=== PATIENT | female | born 1955 | race Caucasian/White ===

== ENCOUNTER 2024-03-05 13:05 | Inpatient (IN) | payer MEDICARE, SELFPAY ==
--- NOTE | ~2024-03-05 | XR_ITS ---
EXAMINATION: XR chest 1V portable Exam Date/Time: 03/05/2024 17:50 CDT HISTORY: Altered mental status Comparison: None. RESULT: Lines, tubes, and devices: None. Lungs and pleura: Mild diffuse reticular opacities. Cardiomediastinal silhouette: Unremarkable. Other: No acute osseous or upper abdominal finding. IMPRESSION: Pulmonary opacities may represent mild interstitial edema or chronic interstitial change. Reviewed, dictated and finalized at location K. IMPRESSION: Pulmonary opacities may represent mild interstitial edema or chronic interstiti al change.
--- NOTE | ~2024-03-05 | CT_ITS ---
EXAMINATION: CT brain wo con DATE: 03/05/2024 18:20 INDICATION: Altered mental status . TECHNIQUE: Computed tomography (CT) of the head was performed without intravenous contrast. The mA wa s adjusted according to patient size. Iterative reconstruction technique was employed. The dose-lengt h product was 1210.67 mGy-cm. COMPARISON: None. FINDINGS: Moderate motion artifact which persisted in repeated imaging attempts. No acute intracranial hemorrhage or extra-axial fluid collection. No hydrocephalus, mass, or herniation. No acute ischemic infarct. Unremarkable dural venous sinus attenuation. No acute osseous abnormality. The aerated spaces are clear. Moderate atrophy and severe chronic white matter change. Atherosclerotic intracranial calcification. Bilateral lens replacements. IMPRESSION: Moderately motion limited examination due to motion artifact. No definite acute intracranial process. Reviewed, dictated and finalized at location K.
[2024-03-05 13:17] VITALS: BP 124/106; PULSE 70; RESP 16; O2SAT 96
--- NOTE | 2024-03-05 16:09 | PC.NURSE ---
1317 pts at bedside stating pt is going to need restrained to do anything due to pt being combative.
[2024-03-05] MEDS: SODIUM CHLORIDE 0.9% IV 1,000 ML 999 ML IV CONT (17:45)
[2024-03-05 17:59] LABS: Basophils Absolute Auto 0.1 K/mm3 (0.0-0.1); Basophils Percent Auto 0.5 % (0.2-1.2); Eosinophils Absolute Auto 0.2 K/mm3 (0-0.3); Eosinophils Percent Auto 1.5 % (0-4.4); Hematocrit 33.1 % (37.0-47.0); Hemoglobin 11.8 g/dL (12.0-15.0); Immature Granulocyte Absolute 0.04 K/mm3 (0.00-0.031); Immature Granulocyte Percent A 0.4 % (0-0.5); Lymphocytes Absolute Auto 2.14 K/mm3 (0.9-3.2); Lymphocytes Percent Auto 20.1 % (18.3-44.2); Mean Corpuscular HGB Conc 35.6 g/dl (32-36); Mean Corpuscular Hemoglobin 31.9 pg (26-34); Mean Corpuscular Volume 89.5 fl (80-100); Mean Platelet Volume 10.3 fl (7.4-10.4); Monocytes Absolute Auto 0.7 K/mm3 (0.1-0.6); Monocytes Percent Auto 6.4 % (2.6-8.5); Neutrophils Absolute Auto 7.6 K/mm3 (1.3-6.7); Neutrophils Percent Auto 71.1 % (45.5-73.1); Platelet Count Result 254 k/mm3 (150-375); Red Cell Distribution Width 13.2 % (11.5-14.5); White Blood Count 10.7 K/mm3 (4.5-10.0)
[2024-03-05 18:10] LABS: Alanine Aminotransferase 24 U/L (6-35); Albumin Level 3.7 g/dL (3.5-5.1); Alkaline Phosphatase 142 U/L (38-126); Anion Gap 11 mmol/L (4-12); Aspartate Amino Transferase 24 U/L (14-36); Bilirubin,Total 0.4 mg/dL (0.2-1.3); Blood Urea Nitrogen 12 mg/dL (7-17); Calcium 9.2 mg/dL (8.4-10.2); Carbon Dioxide 25 mmol/L (22-30); Chloride 102 mmol/L (98-107); Estimated Glomerular Filt Rate > 60; Glucose 159 mg/dL (65-110); Lactic Acid Reflex 1.9 mmol/L (0.7-2.0); Magnesium 1.6 mg/dL (1.6-2.3); Potassium 3.8 mmol/L (3.4-5.0); Sodium 138 mmol/L (137-145)
[2024-03-05 18:21] LABS: Add Urine Microscopic? YES; Appearance Urine Cloudy (Clear); Bacteria Urine 4+ /hpf; Bilirubin Urine Negative (Negative); Blood Urine Negative (Negative); Budding Yeast Urine Present /hpf; Color Urine Yellow (Yellow); Glucose Urine UA Negative (Negative); Ketones Urine Trace mg/dL (Negative); Leukocyte Esterase Ur 2+ LEU/UL (Negative); Need Manual Microscopic Reviewed; Nitrate Urine Positive (Negative); Non Pathogenic Casts 0-2; Protein Urine Trace mg/dL (Negative); RBC Urine 0-2 /hpf (0-2); Specific Grav Ur 1.017 (1.001-1.035); Squamous Epithelial Cell Urine None Seen /hpf (Few); WBC Urine >100 /hpf (0-3); pH Urine 7.5 (5.0-9.0)
[2024-03-05 18:21] LABS: Troponin I < 0.012 ng/mL (0.000-0.034)
--- NOTE | 2024-03-05 19:04 | ED.GENADULT ---
HPI - General Adult General Chief complaint: Altered Mental Status Stated complaint: confusion Time Seen by Provider: 03/05/24 16:04 History of Present Illness HPI narrative: Patient is a 68-year-old female presents emergency department with chief complaint of altered mental status. Patient is resident of [facility] and has become combative with the staff and has had dark malodorous urine the staff was unable to get a urine from the patient as she was combative at the facility and was striking at staff. Related Data Allergies Allergy/AdvReac Type Severity Reaction Status Date / Time No Known Allergies Allergy Unknown Unverified 12/04/08 13:50 Penicillins Allergy Unknown Unverified 12/04/08 13:53 Review of Systems Review of Systems: A 10 system review of systems was completed on the patient and is negative except for what is stated in the HPI. Nursing and ancillary documentation was reviewed. Exam Narrative: GENERAL: Well-appearing, well-nourished, and in no acute distress. HEAD: Normocephalic, atraumatic. EYES: PERRLA and EOMI. ENT: Nares clear, no rhinorrhea or epistaxis. Mucous membranes moist. NECK: Supple. CHEST: Clear to auscultation. No respiratory distress. HEART: Regular rate and rhythm. No murmur heard. Normal peripheral pulses. ABDOMEN: Soft, nontender, nondistended, normal active bowel sounds. EXTREMITIES: Normal range of motion. No edema. SKIN: Warm, dry, no rash. NEURO: No focal deficits. Alert and oriented confused non cooperative. PSYCH: Normal mood and affect. Course Vital Signs Vital signs: Vital Signs Oxygen Delivery Room Air 03/05/24 13:15 Pulse Rate 70 03/05/24 13:17 Respiratory Rate 16 03/05/24 13:17 Blood Pressure 124/106 H 03/05/24 13:17 Pulse Oximetry 96 03/05/24 13:17 Oxygen Delivery Room Air 03/05/24 13:15 Medical Decision Making [facility] Narrative Medical decision making narrative: Differential diagnosis includes UTI, CVA, ACS, dehydration Laboratory studies were obtained on the patient which showed a normal CBC with white count 10.7 hemoglobin is 11.8 electrolytes showed no acute abnormality urinalysis showed greater than 100 white blood cells 2+ leukocyte esterase CT head showed no acute abnormalities chest x-ray showed no focal infiltrate The case was discussed with the hospitalist the patient be admitted. Per request of the hospitalist service patient was started on meropenem Vital Signs Vital Signs: Vital Signs Oxygen Delivery Room Air 03/05/24 13:15 Pulse Rate 70 03/05/24 13:17 Respiratory Rate 16 03/05/24 13:17 Blood Pressure 124/106 H 03/05/24 13:17 Pulse Oximetry 96 03/05/24 13:17 Oxygen Delivery Room Air 03/05/24 13:15 Lab Data 03/05/24 17:49 03/05/24 17:49 Labs: Lab Results 03/05/24 03/05/24 Range/Units 17:48 17:49 WBC 10.7 H (4.5-10.0) K/mm3 RBC 3.70 L (4.2-5.4) M/mm3 Hgb 11.8 L (12.0-15.0) g/dL Hct 33.1 L (37.0-47.0) % MCV 89.5 (80-100) fl MCH 31.9 (26-34) pg MCHC 35.6 (32-36) g/dl RDW 13.2 (11.5-14.5) % Plt Count 254 (150-375) k/mm3 MPV 10.3 (7.4-10.4) fl Immature Gran % (Auto) 0.4 (0-0.5) % Neut % (Auto) 71.1 (45.5-73.1) % Lymph % (Auto) 20.1 (18.3-44.2) % [place] % (Auto) 6.4 (2.6-8.5) % Eos % (Auto) 1.5 (0-4.4) % Baso % (Auto) 0.5 (0.2-1.2) % Lymph # (Auto) 2.14 (0.9-3.2) K/mm3 [place] # (Auto) 0.7 H (0.1-0.6) K/mm3 Eos # (Auto) 0.2 (0-0.3) K/mm3 Baso # (Auto) 0.1 (0.0-0.1) K/mm3 Abs Immat Gran (auto) 0.04 H (0.00-0.031) K/mm3 Absolute Neuts (auto) 7.6 H (1.3-6.7) K/mm3 Absolute Nucleated RBC 0.000 (0.0-0.012) K/mm3 Nucleated RBC % 0.0 (0.0-0.2) % Sodium 138 (137-145) mmol/L Potassium 3.8 (3.4-5.0) mmol/L Chloride 102 (98-107) mmol/L Carbon Dioxide 25 (22-30) mmol/L Anion Gap 11 (4-12) mmol/L BUN 12 (7-17) mg/dL Creatinine 0
[2024-03-05 19:21] LABS: Influenza A QL RT-PCR Negative (Negative); Influenza B QL RT-PCR Negative (Negative); RSV RNA, RT-PCR Negative (Negative); SARS-CoV-2 RNA PCR Positive (Negative)
[2024-03-05 19:28] VITALS: BP 154/92; PULSE 64; RESP 16; O2SAT 94
--- NOTE | 2024-03-05 19:30 | PM.IMHP ---
H&P: HPI History of Present Illness Date/Time: 03/05/24 19:30 Chief Complaint: ams Narrative: THIS IS A 68-YEAR-OLD FEMALE WITH PAST MEDICAL HISTORY SIGNIFICANT FOR DEMENTIA, PATIENT RESIDES AT LOCAL [facility] FACILITY WAS BROUGHT TO THE EMERGENCY ROOM DUE TO ALTERED MENTAL STATUS WITH AGITATION, CONFUSION. Preliminary workup significant for urinalysis with numerous WBCs present. EXAMINATION: XR chest 1V portable Exam Date/Time: 03/05/2024 17:50 CDT HISTORY: Altered mental status Comparison: None. RESULT: Lines, tubes, and devices: None. Lungs and pleura: Mild diffuse reticular opacities. Cardiomediastinal silhouette: Unremarkable. Other: No acute osseous or upper abdominal finding. IMPRESSION: Pulmonary opacities may represent mild interstitial edema or chronic interstitial change. EXAMINATION: CT brain wo con DATE: 03/05/2024 18:20 INDICATION: Altered mental status . TECHNIQUE: Computed tomography (CT) of the head was performed without intravenous contrast. The mA was adjusted according to patient size. Iterative reconstruction technique was employed. The dose-length product was 1210.67 mGy-cm. COMPARISON: None. FINDINGS: Moderate motion artifact which persisted in repeated imaging attempts. No acute intracranial hemorrhage or extra-axial fluid collection. No hydrocephalus, mass, or herniation. No acute ischemic infarct. Unremarkable dural venous sinus attenuation. No acute osseous abnormality. The aerated spaces are clear. Moderate atrophy and severe chronic white matter change. Atherosclerotic intracranial calcification. Bilateral lens replacements. IMPRESSION: Moderately motion limited examination due to motion artifact. No definite acute intracranial process. Review of Systems Review of Systems: ROS unobtainable: Yes unobtainable due to mental status ( obtundation) [facility] Past Medical History Medical History (Updated 03/07/24 @ 15:46 by Michael Blanco MD) Dementia Diabetes mellitus HTN (hypertension), benign Social History Social History Smoking status: Unknown if ever smoked Alcohol intake: never Substance use: never Substance use type: does not use Spiritual care concerns: No Meds Home Medications and Allergies Home Medications Medication Instructions Recorded Confirmed Type aspirin 81 mg chewable tablet 81 mg PO DAILY 03/05/24 03/05/24 History atorvastatin 80 mg tablet 80 mg PO QPM 03/05/24 03/05/24 History benazepril 40 mg tablet 40 mg PO DAILY 03/05/24 03/05/24 History donepezil 10 mg tablet 10 mg PO HS 03/05/24 03/05/24 History escitalopram oxalate 20 mg tablet 20 mg PO DAILY 03/05/24 03/05/24 History memantine 5 mg tablet 5 mg PO BID 03/05/24 03/05/24 History metformin 500 mg tablet,extended 1,000 mg PO DAILY 03/05/24 03/05/24 History release 24 hr quetiapine 25 mg tablet 25 mg PO DAILY 03/05/24 03/05/24 History sulfamethoxazole 800 1 tab PO Q12HR #7 tabs 03/07/24 Rx mg-trimethoprim 160 mg tablet Allergies Allergy/AdvReac Type Severity Reaction Status Date / Time Penicillins Allergy Unknown Anaphylaxis Verified 03/05/24 20:33 Vital Signs Vital Signs - 24 hr 03/05/24 13:17 03/05/24 13:15 03/05/24 19:28 Pulse Rate 70 64 Respiratory Rate 16 16 Blood Pressure 124/106 H 154/92 H Pulse Oximetry 96 94 Oxygen Delivery Room Air Exam Narrative: Patient is restless soft restraints in place Const: General: comfortable, no acute distress, well developed, alert, awake and average body habitus Nutritional Appearance: average body habitus Orientation/consciousness: oriented to person Other: speaking nonsensical HENMT: Head: normal to inspection, normocephalic and atraumatic Ears: hearing grossly normal bilaterally Face/Nose/Sinus: normal facial exam Face and sinus: normal facial exam Eyes: General: appearance no
[2024-03-05] MEDS: SODIUM CHLORIDE 0.9% IV 1,000 ML 100 ML IV CONT (21:36)
[2024-03-05 21:37] VITALS: BP 112/96; PULSE 56; RESP 16; TEMP 37.1; O2SAT 96
[2024-03-05] MEDS: AZTREONAM 1 GM in SODIUM CHLORIDE 0.9% IV 50 ML 100 ML IVPB (21:37)
[2024-03-05 21:50] VITALS: BP 112/96; PULSE 56; RESP 16; TEMP 37.1; O2SAT 96
[2024-03-05 22:19] VITALS: BMI 22.7
[2024-03-05] MEDS: QUEtiapine FUMARATE 25 MG TABLET 75 MG PO (22:36)
--- NOTE | 2024-03-06 04:49 | PC.NURSE ---
0445 SPOKE WITH NURSE DIAZ AT [facility] ABOUT PT COVID STATUS. PT LABS ON ADMISSION SHOWED POSITIVE COVID TEST BUT PT HAD RECENTLY TESTED POSITIVE FOR COVID ON 02/06/2024 PER [facility] NURSE. PT HAS NO COVID SYMPTOMS AND ISOLATION IS NOT NEEDED.
[2024-03-06] MEDS: AZTREONAM 1 GM in SODIUM CHLORIDE 0.9% IV 50 ML 100 ML IVPB ×3 (06:43→20:44)
[2024-03-06] MEDS: SODIUM CHLORIDE 0.9% IV 1,000 ML 100 ML IV CONT (06:43)
[2024-03-06] MEDS: ASPIRIN 81 MG CHEWABLE TABLET PO (09:31)
[2024-03-06] MEDS: ENOXAPARIN 40 MG/0.4 ML SYRINGE SUB-Q (09:31)
[2024-03-06] MEDS: lisinopriL 20 MG TABLET 40 MG PO (09:32)
[2024-03-06] MEDS: MEMANTINE 5 MG TABLET PO ×2 (09:32→20:43)
[2024-03-06] MEDS: ESCITALOPRAM OXALATE 10 MG TABLET 20 MG PO (09:32)
[2024-03-06] MEDS: QUEtiapine FUMARATE 25 MG TABLET PO (09:32)
[2024-03-06 10:47] VITALS: BMI 22.7
--- NOTE | 2024-03-06 13:02 | PM.IMPN ---
Progress Note: A&P Assessment and Plan (1) Altered mental status: Code(s): R41.82 - Altered mental status, unspecified Status: Acute Assessment and Plan: Patient with delirium complicated by her dementia. CT brain showing no obvious changes. CXR clear. UA consistent with UTI so possibly AMS related to infection. Supportive care. SLIVF (2) Acute UTI: Code(s): N39.0 - Urinary tract infection, site not specified Status: Acute Assessment and Plan: UA is consistent with UTI. UCx and BCx collected. Aztreonam started. UCx pending. Follow up on UCx results. (3) Dementia: Code(s): F03.90 - Unspecified dementia, unspecified severity, without behavioral disturbance, psychotic disturbance, mood disturbance, and anxiety Status: Acute Assessment and Plan: Dementia with behavioral disorder. We have resumed her Aricept, Lexapro, Namenda and Seroquel. Monitor (4) HTN (hypertension), benign: Code(s): I10 - Essential (primary) hypertension Status: Acute Assessment and Plan: Patient's blood pressure was reviewed on 03/06 Blood pressure remains reasonably well controlled. Will continue current medications. (5) COVID: Code(s): U07.1 - COVID-19 Status: Acute Assessment and Plan: Patient tested positive here for COVID. Patient was positive for COVID on 02/06/24 so suspect this is just persistent findings and not a true infection. CXR clear. Plan DVT prophylaxis - Lovenox Code status - DNR Subjective Date/time seen: 03/06/24 13:02 Interval history: 68yo female with dementia here for AMS. Assuming care. Chart reviewed. Patient is unable to provide history. Review of Systems Review of Systems: ROS unobtainable: Yes unobtainable due to mental status Exam Narrative: AF 98.7 112/96 56 16 96% ra Gen - NARD Chest - refuses exam CV - RRR S1/S2 Abd - Soft, NT/ND, Positive BS Ext - No pedal edema Neuro - awake, alert, confused. Combative at times. Psych - anxious and paranoid Skin - Warm and dry Objective Data Vital Signs Vital Signs: Vital Signs - 24 hr 03/05/24 13:17 03/05/24 13:15 03/05/24 19:28 Temperature Pulse Rate 70 64 Respiratory Rate 16 16 Blood Pressure 124/106 H 154/92 H Pulse Oximetry 96 94 Oxygen Delivery Room Air 03/05/24 21:37 03/05/24 21:50 03/06/24 08:00 Temperature 98.7 F 98.7 F Pulse Rate 56 L 56 L Respiratory Rate 16 16 Blood Pressure 112/96 H 112/96 H Pulse Oximetry 96 96 Oxygen Delivery Room Air Intake/Output Intake/Output: Intake & Output 03/03/24 03/04/24 03/05/24 03/06/24 23:59 23:59 23:59 23:59 Intake Total 1000 1391.7 Balance 1000 1391.7 Meds/Results Medications: Active Medications Generic Name Dose Route Start Last Admin Trade Name Freq PRN Reason Stop Dose Admin Acetaminophen 650 mg 03/05/24 19:14 Acetaminophen 325 Mg Tablet PO Q4H PRN Mild Pain (1-3) or Fever Aspirin 81 mg 03/06/24 09:00 03/06/24 09:31 Aspirin 81 Mg Chewable Tablet PO 81 mg DAILY JOAN Administration Atorvastatin Calcium 80 mg 03/05/24 23:05 03/06/24 06:24 Atorvastatin 40 Mg Tablet PO Not Given QPM JOAN Donepezil HCl 10 mg 03/05/24 23:05 03/06/24 06:23 Donepezil Hcl 10 Mg Tablet PO Not Given HS JOAN Enoxaparin Sodium 40 mg 03/06/24 09:00 03/06/24 09:31 Enoxaparin 40 Mg/0.4 Ml Syringe SUB-Q 40 mg DAILY JOAN Administration Escitalopram Oxalate 20 mg 03/06/24 09:00 03/06/24 09:32 Escitalopram Oxalate 10 Mg Tablet PO 20 mg DAILY JOAN Administration Sodium Chloride 1,000 mls @ 100 mls/hr 03/05/24 19:15 03/06/24 06:43 Normal Saline Iv IV CONT 100 mls/hr .Q10H JOAN Administration Aztreonam 1 gm/ Sodium 50 mls @ 100 mls/hr 03/06/24 06:00 03/06/24 06:43 Chloride IVPB 100 mls/hr Q8H JOAN Administration Lisinopril 40 mg 03/06/24 09:00 03/06/24 09:32
[2024-03-06 17:40] LABS: Glucose Point of Care 253 mg/dl (65-105)
[2024-03-06] MEDS: ATORVASTATIN 40 MG TABLET 80 MG PO (18:18)
[2024-03-06] MEDS: DONEPEZIL HCL 10 MG TABLET PO (20:43)
[2024-03-06 22:00] VITALS: BP 132/51; PULSE 74; RESP 20; TEMP 36.3; O2SAT 100
[2024-03-07] MEDS: AZTREONAM 1 GM in SODIUM CHLORIDE 0.9% IV 50 ML 100 ML IVPB (06:07)
[2024-03-07 08:00] VITALS: PULSE 74; RESP 20; O2SAT 100
[2024-03-07 09:01] LABS: Glucose Point of Care 199 mg/dl (65-105)
[2024-03-07] MEDS: ASPIRIN 81 MG CHEWABLE TABLET PO (09:57)
[2024-03-07] MEDS: MEMANTINE 5 MG TABLET PO (09:57)
[2024-03-07] MEDS: lisinopriL 20 MG TABLET 40 MG PO (09:57)
[2024-03-07] MEDS: metFORMIN HCL XR 500 MG TAB.SR.24H 1000 MG PO (09:57)
[2024-03-07] MEDS: QUEtiapine FUMARATE 25 MG TABLET PO (09:57)
[2024-03-07] MEDS: ESCITALOPRAM OXALATE 10 MG TABLET 20 MG PO (09:57)
--- NOTE | 2024-03-07 14:50 | PM.DS ---
DS: Admitting Diagnosis Discharge Date 03/07/24 Admitting Diagnosis Confusion DS: Discharge Diagnosis Discharge Diagnosis (1) Altered mental status: Code(s): R41.82 - Altered mental status, unspecified Status: Acute (2) Acute UTI: Code(s): N39.0 - Urinary tract infection, site not specified Status: Acute (3) Dementia: Code(s): F03.90 - Unspecified dementia, unspecified severity, without behavioral disturbance, psychotic disturbance, mood disturbance, and anxiety Status: Acute (4) HTN (hypertension), benign: Code(s): I10 - Essential (primary) hypertension Status: Acute (5) COVID: Code(s): U07.1 - COVID-19 Status: Acute (6) Diabetes mellitus: Code(s): E11.9 - Type 2 diabetes mellitus without complications Status: Acute DS: Summary Hospital Course Reason for hospitalization: 68yo female with dementia here for AMS. Please see H&P for details. Hospital Course: Patient with delirium complicated by her dementia. CT brain showing no obvious changes. CXR showed pulmonary opacities may represent mild interstitial edema or chronic interstitial change. She remained on room air. She was started on IV fluids but stopped quickly given the xray findigs. UA consistent with UTI so felt AMS related to infection. UCx and BCx collected. Aztreonam started due to allergies. UCx grew Klebsiella that was relatively love-sensitive. BCx NGTD. Patient with known dementia with behavioral disorder. We resumed her Aricept, Lexapro, Namenda and Seroquel. Patient's blood pressure was monitored and remained reasonably well controlled. Patient tested positive here for COVID. Patient was positive for COVID on 02/06/24 so suspect this is just persistent findings and not a true infection. Her mental status improved. She overall did well and was able to be discharged on 03/07/24. Status at Discharge Cognitive/behavioral status at discharge: stable Time Spent with Patient Time attestation: Total time spent providing and/or coordinating discharge services: 32 mintues Time spent: Greater than 30 minutes Exam Narrative: AF 97.3 132/51 74 20 100% ra Gen - NARD Chest - clear to quiet respirations. nml RR CV - RRR S1/S2 Abd - Soft, NT/ND, Positive BS Ext - No pedal edema Neuro - awake, alert, confused. Psych - in good spirits Skin - Warm and dry DS: Data Data Completed and Pending Labs on day of discharge: Labs from last 24 hours 03/07/24 03/06/24 08:58 17:36 POC Capillary Glucose 199 H 253 H Preliminary micro results at discharge 03/05/24 17:49 Blood Culture - Preliminary Blood 03/05/24 17:49 Blood Culture - Preliminary Blood Discharge Plan Discharge Attending physician on discharge: Michael Blanco Discharging Clinician: Michael Blanco Anticipated Discharge Date/Time: 03/07/24 15:45 Patient Disposition: NH Nursing Home/Asst Living Activity: as tolerated Diet: diabetic Discharge Instructions: Take precautions to avoid falls. Rise slowly from a lying or sitting position. Pause before standing or walking. Contact the doctor if the patient has fevers or other worrisome symptoms. Avoid NSAIDs (ibuprofen, naproxen, Aleve). Tylenol is safe to take. Follow-up with the provider at the facility. Thank you for using [facility] for your health care needs. Patient Instructions: Antibiotic Form, Pain Management (DC) Stand Alone Forms: General Discharge Information Follow-up/Referrals: Rosalio,MD Hayden [Primary Care Provider] - Call for Appointment Discharge Medications: New sulfamethoxazole-trimethoprim 800-160 mg Tablet 1 tab PO Q12HR Qty: 7 0RF Continued quetiapine 25 mg tablet 25 mg PO DAILY atorvastatin 80 mg tablet 80 mg PO QPM Rx Instructions: evening administration donepezil 10 mg tablet 10 mg PO HS aspirin [Adult Aspirin] 81 mg Tablet,Ch
--- NOTE | 2024-03-19 10:32 | PC.NURSE ---
Blood cx are negative. Dr. Bella prasad.
== END 2024-03-07 16:00 | DRG 690 ==
LOC: ANHED 19:09 → ANH3MEDSUR 20:18 → ANH3MED 21:09
PROVIDERS: Admitting Provider Internal Medicine; Emergency Provider Emergency Medicine; PCP Internal Medicine; Visit Provider Internal Medicine
DX: N39.0 Urinary tract infection, site not specified (principal); B96.1 Klebsiella pneumoniae [K. pneumoniae] as the cause of diseases classified elsewhere; E11.9 Type 2 diabetes mellitus without complications; F03.90 Unspecified dementia, unspecified severity, without behavioral disturbance, psychotic disturbance, mood disturbance, and anxiety; Z86.16 Personal history of COVID-19; Z79.84 Long term (current) use of oral hypoglycemic drugs
CPT/HCPCS: 36415; 70450; 71045; 80053; 81001; 82948; 83605; 83735; 84145; 84484; 85025; 87040; 87077; 87086; 87088; 87186; 87637; 96361; 96374; 96376; 99285; A9270; G0378; J0457; J1650; J7030

== ENCOUNTER 2024-04-12 19:07 | Inpatient (IN) | payer MEDICARE, SELFPAY ==
[2024-04-12] VITALS (10 sets, daily range): BP systolic 132–142; BP diastolic 63–76; PULSE 80–98; RESP 17–20; TEMP 36.1–36.6; O2SAT 97–98
--- NOTE | ~2024-04-12 | XR_ITS ---
EXAMINATION: XR fl Dobhoff insert/rad w img DATE: 04/15/2024 14:37 INDICATION: Nutrition and medication requiring nasoenteric catheter feeding tube placement. TECHNIQUE: A Dobbhoff type feeding tube was advanced into the duodenum utilizing intermittent fluoroscopy. Injec tion of 10 mL of with 100 mL Omnipaque-350 was performed through the catheter with the catheter tip i n the region of the gastroduodenal junction to delineate the anatomy. Final image demonstrates the fe eding tube in position with the weighted tip at the expected location of the ligament of Treitz and i njected contrast within the duodenum and proximal jejunum. The tube was flushed with 10 mL sterile sa line and fixed to the nares with adhesive tape. A single fluoroscopic image was recorded. The amount of fluoroscopy time used during this procedure was 1.1 minutes. Total DAP was 3.039 Gycm^2. There we re no immediate complications. FINDINGS/IMPRESSION: Successful fluoroscopy-guided Dobbhoff feeding tube placement with distal tip in the fourth portion o f the duodenum. Reviewed, dictated and finalized at location A.
--- NOTE | ~2024-04-12 | XR_ITS ---
Exam: Single frontal portable view of the lower chest and upper abdomen HISTORY: check placement for Dobhoff, no longer patent COMPARISON: Reference is made to previous examination (fluoroscopy) performed 5 hours earlier during placement TECHNIQUE: Semierect images of the lower chest and upper abdomen FINDINGS: Dobbhoff feeding tube no longer projects to the right of midline. The catheter is not kinked. Feeding tube projects over the left upper quadrant. Further characterization of its location is limited without contrast injection. IMPRESSION: Feeding tube projecting over the left upper quadrant for which further characterization of its locati on is limited without contrast injection. Reviewed, dictated and finalized at location A. IMPRESSION: Feeding tube projecting over the left upper quadrant for which further characte rization of its location is limited without contrast injection.
--- NOTE | ~2024-04-12 | MR_ITS ---
MR brain/brain stem wo con Ordering provider: Evelyn Paez PA-C History: 68 years Female with . AMS . Comparison: CT head performed yesterday. Technique: MRI brain was performed without contrast. FINDINGS: BONES: Normal. CRANIOCERVICAL JUNCTION: normal. PITUITARY: Normal. MAJOR INTRACRANIAL VESSELS: Normal flow void. OPTIC NERVES AND CRANIAL NERVES VII AND VIII COMPLEXES: Grossly normal. BRAIN PARENCHYMA AND CSF SPACES: Moderate nonspecific T2 white matter hyperintensities are seen in a bilateral periventricular and deep white matter distribution which are likely related to chronic isc hemic small vessel disease. Moderate diffuse cortical atrophy. The brainstem and cerebellum are danielle l. No acute or chronic intracranial hemorrhage. No extra axial fluid collections. Diffusion weighted and ADC mapping images reveal no recent ischemia. No midline shift or mass effect. PARANASAL SINUSES: Normal. MASTOIDS: Normal SUPERFICIAL/SURROUNDING SOFT TISSUES: Normal. IMPRESSION: 1. No evidence of acute infarct or hemorrhage is seen. 2. Brain atrophy with deep white matter ischemic changes. Reviewed, dictated and finalized at location A.
--- NOTE | ~2024-04-12 | CT_ITS ---
CT brain wo con Ordering provider: Hayden Santillan MD History: 68 years Female with . altered mental status . Comparison: March 05, 2024 Technique: CT of the head without contrast. Radiation reduction technique utilized. The dose-length product was 832.33 mGy-cm. FINDINGS: BRAIN PARENCHYMA AND CSF SPACES: Moderate leukoaraiosis and diffuse cortical atrophy. Moderate athero matous disease. No midline shift, mass effect or hemorrhage. The brain parenchyma and CSF spaces are otherwise normal. VISUALIZED PARANASAL SINUSES: Well aerated. MASTOIDS: Well aerated. BONES: The bones appear intact. SOFT TISSUES: Visualized nasopharynx is normal. Superficial soft tissues are normal. IMPRESSION: No acute intracranial findings. Reviewed, dictated and finalized at location A.
--- NOTE | 2024-04-12 19:19 | ECG_ITS ---
Test Date: 2024-04-12 19:29:41 Measurements Intervals [place] Rate: 98 P: 64 MT: 157 QRS: 36 QRSD: 97 T: 58 QT: 331 QTc: 423 Interpretive Statements SINUS RHYTHM NONSPECIFIC INTRAVENTRICULAR CONDUCTION DELAY LOW-VOLTAGE QRS BORDERLINE ECG No previous ECG available for comparison Electronically Signed On 04-13-2024 09:47:23 CDT by Hayden Wright M.D.
[2024-04-12 19:39] LABS: Basophils Absolute Auto 0.1 K/mm3 (0.0-0.1); Basophils Percent Auto 0.5 % (0.2-1.2); Eosinophils Percent Auto 0.1 % (0-4.4); Hematocrit 35.8 % (37.0-47.0); Hemoglobin 12.2 g/dL (12.0-15.0); Immature Granulocyte Absolute 0.05 K/mm3 (0.00-0.031); Immature Granulocyte Percent A 0.4 % (0-0.5); Lymphocytes Absolute Auto 1.68 K/mm3 (0.9-3.2); Lymphocytes Percent Auto 13.2 % (18.3-44.2); Mean Corpuscular HGB Conc 34.1 g/dl (32-36); Mean Corpuscular Hemoglobin 30.8 pg (26-34); Mean Corpuscular Volume 90.4 fl (80-100); Monocytes Absolute Auto 0.9 K/mm3 (0.1-0.6); Monocytes Percent Auto 7.3 % (2.6-8.5); Neutrophils Percent Auto 78.5 % (45.5-73.1); Platelet Count Result 331 k/mm3 (150-375); Red Blood Count 3.96 M/mm3 (4.2-5.4); Red Cell Distribution Width 12.6 % (11.5-14.5); White Blood Count 12.8 K/mm3 (4.5-10.0)
--- NOTE | 2024-04-12 19:39 | ED_ITS ---
HPI - Altered Mental Status General Chief Complaint: Altered Mental Status Stated Complaint: lethargic Time Seen by Provider: 04/12/24 19:32 Source: EMS Mode of arrival: EMS Limitations: altered mental status History of Present Illness HPI narrative: patient memory care retirement here for altered mental status. Typically is combative and energetic but today has been more somnolent. Patient Making some mumbling speech with me and making eye contact and grabbing my hand otherwise not providing any history. Related Data Home Medications Medication Instructions Recorded Confirmed aspirin 81 mg chewable tablet 81 mg PO DAILY 03/05/24 03/05/24 atorvastatin 80 mg tablet 80 mg PO QPM 03/05/24 03/05/24 benazepril 40 mg tablet 40 mg PO DAILY 03/05/24 03/05/24 donepezil 10 mg tablet 10 mg PO HS 03/05/24 03/05/24 escitalopram oxalate 20 mg tablet 20 mg PO DAILY 03/05/24 03/05/24 memantine 5 mg tablet 5 mg PO BID 03/05/24 03/05/24 metformin 500 mg tablet,extended 1,000 mg PO DAILY 03/05/24 03/05/24 release 24 hr quetiapine 25 mg tablet 25 mg PO DAILY 03/05/24 03/05/24 Allergies Allergy/AdvReac Type Severity Reaction Status Date / Time Penicillins Allergy Unknown Anaphylaxis Verified 03/05/24 20:33 Review of Systems Review of Systems: All systems reviewed & are unremarkable except as noted in HPI and below PMFSH Past Medical History Medical History Dementia Diabetes mellitus HTN (hypertension), benign Social History Social History Smoking status: Unknown if ever smoked Alcohol intake: never Substance use: never Substance use type: does not use Spiritual care concerns: No Exam Narrative: Constitutional: Generally well appearing, no acute distress Head: Atraumatic, no deformities. Eyes: Pupils equal, round, and reactive to light. Neck: Supple, no tracheal deviation, no JVD. ENMT: Mucous membranes moist Cardiovascular: S1, S2 auscultated. No murmurs, rubs, or gallops. No S3/S4. Normal Distal pulses. No peripheral edema. Respiratory: Lung sounds equal. No wheezes, rales, or rhonchi. Gastrointestinal: Abdomen was soft and non-tender. Non-distended. No rebound or guarding. Genitourinary: Deferred Musculoskeletal: Normal muscle tone and bulk. No obvious deformities or tenderness over extremities. Skin: No rashes. Neurological: Strength 5/5 in extremities. Cranial nerves I-XII grossly intact. Distal sensation intact. Mental Status: Awake but drowsy. Looks at me when I speak with her. Mumbling. Not oriented. Squeezing my hands to command otherwise not following commands. Course Vital Signs Vital signs: Vital Signs Temperature 36.6 C 04/12/24 19:12 Pulse Rate 92 04/12/24 19:12 Respiratory Rate 18 04/12/24 19:12 Blood Pressure 132/76 04/12/24 19:12 Pulse Oximetry 97 04/12/24 19:12 Oxygen Delivery Room Air 04/12/24 19:12 Temperature 36.6 C 04/12/24 19:12 Pulse Rate 92 04/12/24 19:12 Respiratory Rate 18 04/12/24 19:12 Blood Pressure 132/76 04/12/24 19:12 Pulse Oximetry 97 04/12/24 19:12 Oxygen Delivery Room Air 04/12/24 19:12 MDM - Altered Mental Status MDM Narrative Medical decision making narrative: 68-year-old female who has been somnolent all day long today. Typically energetic and combative at her retirement. Exam shows somnolence, normal vital signs, not following commands but will wake up and look at me. Per history, does seem to be significantly below her baseline his for his activity and energy level. Will obtain altered mental status workup. If this stroke which seems unlikely, outside tPA window at this point. EKG at 7:29 p.m. shows sinus rhythm possible left atrial enlargement with nonspecific T-wave abnormalities.? No ST elevation or depression.? Normal intervals.? Impression: No STEMI Lab Data 04/12/24 19:25 04/12/24 19:25 Labs: Lab Results 04/12/24 04/12/24 Range/Units 19:25 19:28 WBC 12.8 H (4.5-10.0) K/mm3 RBC 3.96 L (4.2-5.4) M/mm3 Hgb 12.2 (12.0-15.0) g/dL Hct 35.8 L (37.0-47.0) % MCV 90.4 (80-100) fl MCH 30.8 (26-34) pg MCHC 34.1 (32-36) g/dl RDW 12.6 (11.5-14.5) % Plt Count 331 (150-375) k/mm3 MPV 10.0 (7.4-10.4) fl Immature Gran % (Auto) 0.4 (0-0.5) % Neut % (Auto) 78.5 H (45.5-73.1) % Lymph % (Auto) 13.2 L (18.3-44.2) % [place] % (Auto) 7.3 (2.6-8.5) % Eos % (Auto) 0.1 (0-4.4) % Baso % (Auto) 0.5 (0.2-1.2) % Lymph # (Auto) 1.68 (0.9-3.2) K/mm3 [place] # (Auto) 0.9 H (0.1-0.6) K/mm3 Eos # (Auto) 0.0 (0-0.3) K/mm3 Baso # (Auto) 0.1 (0.0-0.1) K/mm3 Abs Immat Gran (auto) 0.05 H (0.00-0.031) K/mm3 Absolute Neuts (auto) 10.0 H (1.3-6.7) K/mm3 Absolute Nucleated RBC 0.000 (0.0-0.012) K/mm3 Nucleated RBC % 0.0 (0.0-0.2) % PT 13.2 (11.1-14.7) Seconds INR 1.0 APTT 23.8 (22.3-36.8) Seconds Sodium 139 (137-145) mmol/L Potassium 4.1 (3.4-5.0) mmol/L Chloride 100 (98-107) mmol/L Carbon Dioxide 30 (22-30) mmol/L Anion Gap 9 (4-12) mmol/L BUN 32 H D (7-17) mg/dL Creatinine 1.00 (0.7-1.0) mg/dL Estim Creat Clear Calc 38 ml/min Estimated GFR 55 L (59 - ) Glucose 211 H (65-110) mg/dL Lactic Acid 1.9 (0.7-2.0) mmol/L Calcium 9.7 (8.4-10.2) mg/dL Total Bilirubin 1.0 (0.2-1.3) mg/dL AST 23 (14-36) U/L ALT 19 (6-35) U/L Alkaline Phosphatase 110 (38-126) U/L Total Protein 7.0 (6.3-8.2) g/dL Albumin 3.8 (3.5-5.1) g/dL Urine Color Yellow (Yellow) Urine Appearance Cloudy H (Clear) Urine pH 5.5 (5.0-9.0) Ur Specific [place] 1.024 (1.001-1.035) Urine Protein 2+ H (Negative) mg/dL Urine Glucose (UA) 1+ H (Negative) mg/dL Urine Ketones Trace H (Negative) mg/dL Ur Blood (Man) Non-hemolyzed trace H (Negative) Urine Nitrate Positive H (Negative) Urine Bilirubin Negative (Negative) Urine Urobilinogen 1.0 (<2.0) mg/dL Leukocyte Esterase Rfl 2+ H (Negative) ELODIA/UL Urine RBC 0-2 (0-2) /hpf Urine WBC >100 H (0-3) /hpf Ur Squamous Epith Cells Few (Few) /hpf Urine Bacteria 4+ H /hpf Urine Casts 6-10 Hyaline Casts Present (None) /lpf Discharge Plan Discharge Clinical Impression: Acute UTI, AMS (altered mental status) Patient Disposition: Still a Patient Condition: Stable Prescriptions: No Action quetiapine 25 mg tablet 25 mg PO DAILY atorvastatin 80 mg tablet 80 mg PO QPM Rx Instructions: evening administration donepezil 10 mg tablet 10 mg PO HS aspirin 81 mg Tablet,Chewable 81 mg PO DAILY benazepril 40 mg tablet 40 mg PO DAILY metformin 500 mg tablet extended release 24 hr 1,000 mg PO DAILY escitalopram oxalate 20 mg tablet 20 mg PO DAILY memantine 5 mg tablet 5 mg PO BID sulfamethoxazole-trimethoprim 800-160 mg Tablet 1 tab PO Q12HR Qty: 7 0RF Follow-up/Referrals: Rosalio,MD Hayden [Primary Care Provider] - Time of Disposition: 20:35
[2024-04-12 19:51] LABS: Lactic Acid Reflex 1.9 mmol/L (0.7-2.0)
[2024-04-12 19:51] LABS: Prothrombin Time 13.2 Seconds (11.1-14.7)
[2024-04-12 19:52] LABS: Alanine Aminotransferase 19 U/L (6-35); Albumin Level 3.8 g/dL (3.5-5.1); Alkaline Phosphatase 110 U/L (38-126); Anion Gap 9 mmol/L (4-12); Aspartate Amino Transferase 23 U/L (14-36); Blood Urea Nitrogen 32 mg/dL (7-17); Calcium 9.7 mg/dL (8.4-10.2); Carbon Dioxide 30 mmol/L (22-30); Chloride 100 mmol/L (98-107); Estimated CRCL calculation 38 ml/min; Estimated Glomerular Filt Rate 55; Glucose 211 mg/dL (65-110); Partial Thromboplastin Time 23.8 Seconds (22.3-36.8); Potassium 4.1 mmol/L (3.4-5.0); Sodium 139 mmol/L (137-145)
[2024-04-12 20:14] LABS: Add Urine Microscopic? YES; Appearance Urine Cloudy (Clear); Bacteria Urine 4+ /hpf; Bilirubin Urine Negative (Negative); Blood Urine Non-Hemolyzed Trace (Negative); Color Urine Yellow (Yellow); Glucose Urine UA 1+ mg/dL (Negative); Hyaline Casts Urine Present /lpf; Ketones Urine Trace mg/dL (Negative); Leukocyte Esterase Ur 2+ LEU/UL (Negative); Nitrate Urine Positive (Negative); Protein Urine 2+ mg/dL (Negative); RBC Urine 0-2 /hpf (0-2); Specific Grav Ur 1.024 (1.001-1.035); Squamous Epithelial Cell Urine Few /hpf (Few); WBC Urine >100 /hpf (0-3); pH Urine 5.5 (5.0-9.0)
--- NOTE | 2024-04-12 20:33 | PM.IMHP ---
H&P: HPI History of Present Illness Date/Time: 04/12/24 20:33 Chief Complaint: AMS Narrative: This is a 68-year-old female with past medical history significant for hypertension, dementia, care home resident. Show patient was brought for evaluation due to altered mental status, lethargy. patient is not able to participate in history to most of which has been obtained upon reviewing medical records and discussion with emergency room provider. Preliminary workup was significant for urinalysis with greater than 100 WBCs per high-power field. A CT of the head was negative for acute intracranial abnormality. Patient has been admitted for further evaluation management and treatment. Technique: CT of the head without contrast. Radiation reduction technique utilized. The dose-length product was 832.33 mGy-cm. FINDINGS: BRAIN PARENCHYMA AND CSF SPACES: Moderate leukoaraiosis and diffuse cortical atrophy. Moderate atheromatous disease. No midline shift, mass effect or hemorrhage. The brain parenchyma and CSF spaces are otherwise normal. VISUALIZED PARANASAL SINUSES: Well aerated. MASTOIDS: Well aerated. BONES: The bones appear intact. SOFT TISSUES: Visualized nasopharynx is normal. Superficial soft tissues are normal. IMPRESSION: No acute intracranial findings. Review of Systems Review of Systems: ROS unobtainable: Yes unobtainable due to mental status (OBTUNDATION/LETHARGY) PMFSH Past Medical History Medical History Dementia Diabetes mellitus HTN (hypertension), benign Social History Social History Smoking status: Unknown if ever smoked Alcohol intake: never Substance use: never Substance use type: does not use Spiritual care concerns: No Meds Home Medications and Allergies Home Medications Medication Instructions Recorded Confirmed Type aspirin 81 mg chewable tablet 81 mg PO DAILY 03/05/24 04/12/24 History atorvastatin 80 mg tablet 80 mg PO QPM 03/05/24 04/12/24 History donepezil 10 mg tablet 10 mg PO HS 03/05/24 04/12/24 History escitalopram oxalate 20 mg tablet 10 mg PO DAILY 03/05/24 04/12/24 History memantine 5 mg tablet 5 mg PO BID 03/05/24 04/12/24 History metformin 500 mg tablet,extended 1,000 mg PO DAILY 03/05/24 04/12/24 History release 24 hr quetiapine 25 mg tablet 25 mg PO TID 03/05/24 04/12/24 History amlodipine 5 mg tablet 5 mg PO DAILY 04/12/24 04/12/24 History buspirone 5 mg tablet 5 mg PO BID 04/12/24 04/12/24 History lisinopril 40 mg tablet 40 mg PO DAILY 04/12/24 04/12/24 History risperidone 1 mg/mL oral solution 2 mg PO BID 04/12/24 04/12/24 History trazodone 50 mg tablet 50 mg PO HS PRN Sleep 04/12/24 04/12/24 History Allergies Allergy/AdvReac Type Severity Reaction Status Date / Time Penicillins Allergy Unknown Anaphylaxis Verified 03/05/24 20:33 Vital Signs Vital Signs - 24 hr 04/12/24 19:12 Temperature 97.9 F Pulse Rate 92 Respiratory Rate 18 Blood Pressure 132/76 Pulse Oximetry 97 Oxygen Delivery Room Air Exam Narrative: Lying in stretcher Const: General: comfortable, no acute distress, well developed, ill appearing acutely, lethargic, patient obtunded and average body habitus Nutritional Appearance: average body habitus Orientation/consciousness: patient obtunded and lethargic HENMT: Head: normal to inspection, normocephalic and atraumatic Ears: hearing grossly normal bilaterally Face/Nose/Sinus: normal facial exam Face and sinus: normal facial exam Eyes: General: appearance normal, both eyes and all related structures Pupils: Equal, round and reactive pupils present EOM: EOMs intact bilaterally Neck: Neck: full ROM, no lymphadenopathy and no JVD Thyroid: thyroid normal Lymphatic: no lymphadenopathy noted Resp: Effort & Inspection: normal respiratory effort and able to speak in complete sentences Auscultation: clear to auscultation bilaterally Cardio: Jugular venous distension: no JVD Rate: regular rate Rhythm: regular rhythm Heart sounds: S1 normal heart sound present and S2 normal heart sound present GI: GI Palp: Yes Soft to palpation and Yes No hepatosplenomegaly present : General: Yes deferred Skin: Rashes: no rashes Wounds: no wounds Neuro: General: moves all extremities, no focal motor deficits, patient obtunded and Unable to assess gait Cranial nerves: Yes CN's II-XII intact bilaterally and Yes Equal, round and reactive pupils present Cognition (Neuro): abnormal cognition (lethargy/obtundation) Speech: normal speech Gait exam (Neuro): Unable to assess gait Motor exam (neuro): 5/5 motor strength present throughout Extrem: General: normal to inspection, full ROM, no joint enlargement and no pedal edema H&P: Results Labs Labs: Short CBC 04/12/24 Range/Units 19:25 WBC 12.8 H (4.5-10.0) K/mm3 Hgb 12.2 (12.0-15.0) g/dL Hct 35.8 L (37.0-47.0) % Plt Count 331 (150-375) k/mm3 BMP 04/12/24 19:25 Sodium 139 Potassium 4.1 Chloride 100 Carbon Dioxide 30 BUN 32 H D Creatinine 1.00 Glucose 211 H Calcium 9.7 Liver Function 04/12/24 Range/Units 19:25 Total Bilirubin 1.0 (0.2-1.3) mg/dL AST 23 (14-36) U/L ALT 19 (6-35) U/L Alkaline Phosphatase 110 (38-126) U/L Albumin 3.8 (3.5-5.1) g/dL Urine 04/12/24 Range/Units 19:25 Urine Color Yellow (Yellow) Urine Appearance Cloudy H (Clear) Urine pH 5.5 (5.0-9.0) Ur Specific [place] 1.024 (1.001-1.035) Urine Protein 2+ H (Negative) mg/dL Urine Glucose (UA) 1+ H (Negative) mg/dL Assessment and Plan Assessment and plan (1) Acute UTI: Code(s): N39.0 - Urinary tract infection, site not specified Status: Acute Assessment and Plan: admit to regular medical floor patient started on ciprofloxacin cultures in progress (2) AMS (altered mental status): Qualifiers: Altered mental status type: disorientation Qualified Code(s): R41.0 - Disorientation, unspecified Code(s): R41.82 - Altered mental status, unspecified Status: Acute Assessment and Plan: CT of the head reviewed likely secondary to 1. (3) Diabetes mellitus: Code(s): E11.9 - Type 2 diabetes mellitus without complications Status: Acute Assessment and Plan: Will hold metformin carb consistent diet once low patient is able to eat current mental status patient is lethargic will keep NPO (4) Dementia: Code(s): F03.90 - Unspecified dementia, unspecified severity, without behavioral disturbance, psychotic disturbance, mood disturbance, and anxiety Status: Acute Assessment and Plan: resume home meds as needed (5) HTN (hypertension), benign: Code(s): I10 - Essential (primary) hypertension Status: Acute Assessment and Plan: resume home meds as needed continue to monitor Hospitalist MIPS Advance Care Plan I have confirmed that the patient's Advanced Care Plan is present, code status is documented, or surrogate decision maker is listed in patient medical record.: Yes Medication Reconciliation I have utilized all available resources to obtain, update and review the patients current medications (includes all prescriptions, OTC, herbals, cannabis, and nutritional supplements).: Yes
[2024-04-12] MEDS: CIPROFLOXACIN 400 MG/D5W 200ML 200 ML 200 MG IVPB (21:11)
[2024-04-12] MEDS: SODIUM CHLORIDE 0.9% IV 1,000 ML 125 ML IV CONT (22:28)
[2024-04-13 05:49] VITALS: BP 143/54; PULSE 62; RESP 18; TEMP 36.2; O2SAT 99
[2024-04-13] MEDS: SODIUM CHLORIDE 0.9% IV 1,000 ML 125 ML IV CONT ×2 (06:36→17:05)
--- NOTE | 2024-04-13 08:06 | P.PNIM_ITS ---
Progress Note: A&P Assessment and Plan (1) AMS (altered mental status): Qualifiers: Altered mental status type: disorientation Qualified Code(s): R41.0 - Disorientation, unspecified Code(s): R41.82 - Altered mental status, unspecified Status: Acute Assessment and Plan: Spoke with patients RN Kimberli who states that prior to recent hospitalization to [facility] she was ambulatory and very combative (hitting/kicking/biting patients and staff) at the facility. She was placed on the behavioral side of [facility] and started on a new psych medication. On Risperidone which was filled on 04/08 per chart review and a large dose of seroquel 25 mg TID. Will discontinue the risperidone as per [facility]ate this has increased mortality risks in elderly patients with severe dementia and will decrease the frequency of the seroquel to HS. - Likely delirium secondary to acute infection complicated by dementia vs polypharmacy - Patient is on a fairly large dose of Seroquel 25 mg TID, decreased to HS. Started on Risperidone this month, discontinued at this time. - Head CT: No acute intracranial findings - MRI brain ordered given that patient has AMS (baseline AO 0-1) however she remains somnolent and is not moving extremities. Unable to perform compete neuro assessment given her inability to follow commands. - UA: Cloudy appearance with 2+ protein, 1+ glucose, trace ketones, non hemolyzed blood, positive nitrates, 2+ leukocytes, > 100 WBC, 4+ bacteria (2) Acute UTI: Code(s): N39.0 - Urinary tract infection, site not specified Status: Acute Assessment and Plan: - UA: Cloudy appearance with 2+ protein, 1+ glucose, trace ketones, non hemolyzed blood, positive nitrates, 2+ leukocytes, > 100 WBC, 4+ bacteria - UC obtained on 04/12: pending - previous micro reviewed 03/05/24: klebsiella pneumoniae pansensitive - started on Cipro on 04/13 (Rocephin not started given patients anaphylactic allergy to penicillins) (3) Dementia: Code(s): F03.90 - Unspecified dementia, unspecified severity, without behavioral disturbance, psychotic disturbance, mood disturbance, and anxiety Status: Acute Assessment and Plan: Continue home medications. - Aricept 10 mg daily, Lexapro 10 mg daily, Namenda 5 mg daily - Seroquel 25 mg TID, decreased to HS as possible cause of somnolence - Monitor (4) HTN (hypertension), benign: Code(s): I10 - Essential (primary) hypertension Status: Acute Assessment and Plan: Chronic, well controlled on home medications - Amlodipine 5 mg daily - Lisinopril 40 mg daily - Monitor (5) Diabetes mellitus: Code(s): E11.9 - Type 2 diabetes mellitus without complications Status: Acute Assessment and Plan: - hypoglycemia protocol - POC blood glucose ACHS - home medication - metformin 1000 mg daily - correct regimen ordered - low dose TIDWM - A1C ordered Time Spent With Patient Time with patient: 25 - 35 minutes Subjective Date/time seen: 04/13/24 08:06 Interval history: 68 year old female with past medical history dementia, hypertension, and diabetes presents [facility] with altered mental status. Patient is lying in bed. She remains alert, making eye contact and saying she is tired and hates this. She is not answering questions at time of assessment and is unable to follow commands. Spoke with an RN at [facility] who states patient is typical more active throughout the facility and often times combative. She notes that patient is intermittently alert to self but is unable to hold conversation or follow commands at baseline. [place] called back and I spoke with patients RN Kimberli who states that prior to recent hospitalization to [facility] she was ambulatory and very combative (hitting/kicking/biting patients and staff) at the facility. She was placed on the behavioral side of [facility] and started on a new psych medication. THis medication appears to be Risperidone which was filled on 04/08 per chart review and a large dose of seroquel 25 mg TID. Will discontinue the risperidone as per uptodate this has increased mortality risks in elderly patients with severe dementia and will decrease the frequency of the seroquel to HS. Review of Systems Review of Systems: ROS unobtainable: Yes unobtainable due to mental status Exam Narrative: AF HR 62 RR 18 Spo2 99 BP 143/54 General: frail female who looks older than stated age in no acute respiratory d istress who is chronically ill appearing, lying semi recumbent in bed. HEENT: Normocephalic. Atraumatic. Sclera clear and anicteric. No facial asymmetry. Chest: Lungs are clear to auscultation bilaterally. No wheezes or crackles. CV: Heart was regular rate and rhythm. S1-S2. No murmurs, gallops, or rubs. Abd: Abdomen was soft. Nontender. Nondistended. Positive bowel sounds. No organomegaly or masses. Ext: No clubbing, cyanosis, or edema. 2+ DP pulses bilaterally. Neuro: Patient is alert, making eye contact. Not moving any extremities and does not follow commands to do a complete neuro assessment. Objective Data Vital Signs Vital Signs: Vital Signs - 24 hr 04/12/24 19:12 04/12/24 19:17 04/12/24 19:45 Temperature 97.9 F Pulse Rate 92 98 Respiratory Rate 18 18 19 Blood Pressure 132/76 132/76 Pulse Oximetry 97 97 Oxygen Delivery Room Air 04/12/24 20:05 04/12/24 20:21 04/12/24 20:30 Temperature Pulse Rate 87 88 88 Respiratory Rate 20 20 18 Blood Pressure Pulse Oximetry 97 98 98 Oxygen Delivery 04/12/24 20:45 04/12/24 21:00 04/12/24 21:19 Temperature Pulse Rate 91 91 80 Respiratory Rate 18 20 17 Blood Pressure Pulse Oximetry 98 97 98 Oxygen Delivery 04/12/24 22:25 04/13/24 05:49 Temperature 97 F L 97.2 F L Pulse Rate 89 62 Respiratory Rate 20 18 Blood Pressure 142/63 H 143/54 H Pulse Oximetry 98 99 Oxygen Delivery Intake/Output Intake/Output: Intake & Output 04/10/24 04/11/24 04/12/24 04/13/24 23:59 23:59 23:59 23:59 Intake Total 200 1300 Balance 200 1300 Meds/Results Medications: Active Medications Generic Name Dose Route Start Last Admin Trade Name Freq PRN Reason Stop Dose Admin Amlodipine Besylate 5 mg 04/13/24 09:00 Amlodipine Besylate 5 Mg Tablet PO DAILY [facility] Aspirin 81 mg 04/13/24 09:00 Aspirin 81 Mg Chewable Tablet PO DAILY [facility] Atorvastatin Calcium 80 mg 04/13/24 18:00 Atorvastatin 40 Mg Tablet PO QPM [facility] Buspirone HCl 5 mg 04/13/24 09:00 Buspirone Hcl 5 Mg Tablet PO BID [facility] Donepezil HCl 10 mg 04/13/24 21:00 Donepezil Hcl 10 Mg Tablet PO HS JOAN Escitalopram Oxalate 10 mg 04/13/24 09:00 Escitalopram Oxalate 10 Mg Tablet PO DAILY JOAN Ciprofloxacin/Dextrose 200 mls @ 200 mls/hr 04/13/24 09:00 Cipro 400 Mg/D5w 200 Ml IVPB Q12H JOAN Sodium Chloride 1,000 mls @ 125 mls/hr 04/12/24 20:35 04/13/24 06:36 Normal Saline Iv IV CONT 125 mls/hr .Q8H JOAN Administration Lisinopril 40 mg 04/13/24 09:00 Lisinopril 20 Mg Tablet PO DAILY JOAN Memantine 5 mg 04/13/24 09:00 Memantine 5 Mg Tablet PO BID JOAN Quetiapine Fumarate 25 mg 04/13/24 09:00 Quetiapine Fumarate 25 Mg Tablet PO TID JOAN Risperidone 2 mg 04/13/24 09:00 Risperidone 1 Mg Tablet PO Q12HR JOAN Trazodone HCl 50 mg 04/13/24 06:24 Trazodone Hcl 50 Mg Tablet PO HS PRN Sleep Radiology Results: ITS Impressions Head CT 04/12/24 20:14 IMPRESSION: No acute intracranial findings. Labs Labs: Laboratory Results - last 24 hr 04/12/24 04/12/24 19:25 19:28 WBC 12.8 H RBC 3.96 L Hgb 12.2 Hct 35.8 L MCV 90.4 MCH 30.8 MCHC 34.1 RDW 12.6 Plt Count 331 MPV 10.0 Immature Gran % (Auto) 0.4 Neut % (Auto) 78.5 H Lymph % (Auto) 13.2 L [place] % (Auto) 7.3 Eos % (Auto) 0.1 Baso % (Auto) 0.5 Lymph # (Auto) 1.68 [place] # (Auto) 0.9 H Eos # (Auto) 0.0 Baso # (Auto) 0.1 Abs Immat Gran (auto) 0.05 H Absolute Neuts (auto) 10.0 H Absolute Nucleated RBC 0.000 Nucleated RBC % 0.0 PT 13.2 INR 1.0 APTT 23.8 Sodium 139 Potassium 4.1 Chloride 100 Carbon Dioxide 30 Anion Gap 9 BUN 32 H D Creatinine 1.00 Estim Creat Clear Calc 38 Estimated GFR 55 L Glucose 211 H Lactic Acid 1.9 Calcium 9.7 Total Bilirubin 1.0 AST 23 ALT 19 Alkaline Phosphatase 110 Total Protein 7.0 Albumin 3.8 Urine Color Yellow Urine Appearance Cloudy H Urine pH 5.5 Ur Specific [place] 1.024 Urine Protein 2+ H Urine Glucose (UA) 1+ H Urine Ketones Trace H Ur Blood (Man) Non-hemolyzed trace H Urine Nitrate Positive H Urine Bilirubin Negative Urine Urobilinogen 1.0 Leukocyte Esterase Rfl 2+ H Urine RBC 0-2 Urine WBC >100 H Ur Squamous Epith Cells Few Urine Bacteria 4+ H Urine Casts 6-10 Hyaline Casts Present Quality VTE Prophylaxis VTE prophylaxis: pharmacologic ordered
[2024-04-13 08:54] LABS: Glucose Point of Care 154 mg/dl (65-105)
[2024-04-13] MEDS: ENOXAPARIN 40 MG/0.4 ML SYRINGE SUB-Q (08:55)
[2024-04-13] MEDS: CIPROFLOXACIN 400 MG/D5W 200ML 200 ML 200 MG IVPB ×2 (08:56→20:49)
[2024-04-13 09:55] LABS: Hemoglobin A1C 7.3 % (<5.7)
--- NOTE | 2024-04-13 10:44 | PC.NURSE ---
Multiple attempts made to call patient's to his cell phone for assistance with filling out MRI screening form. He answered his phone and/or called back to the desk 4 times and we could not hear anything he was saying. It appeared as if his phone was having issues. I then called their listed home phone and the number was not in service. Cannot fill out MRI screening form at this time due to patient's altered mental status.
[2024-04-13 12:03] LABS: Glucose Point of Care 185 mg/dl (65-105)
[2024-04-13 14:00] VITALS: BP 149/53; PULSE 98; RESP 20; TEMP 36.1; O2SAT 99
[2024-04-13 16:44] LABS: Glucose Point of Care 154 mg/dl (65-105)
[2024-04-13 20:00] VITALS: O2SAT 98
[2024-04-13 20:07] LABS: Glucose Point of Care 151 mg/dl (65-105)
[2024-04-13 22:00] VITALS: BP 169/78; PULSE 90; RESP 18; TEMP 37.2; O2SAT 98
--- NOTE | 2024-04-14 04:51 | PC.NURSE ---
04/13/249: PT LETHARGIC; AWAKENS TO NAME WITH INAPPROPRIATE AND GARBLED SPEECH. UNABLE TO FOLLOW COMMANDS; UNABLE TO FOLLOW DIRECTION FOR MEDICATION ADMIN. ON DAYS. DR YIP MADE AWARE NOTED IN PROVIDER COMMUN. DOC.
[2024-04-14 06:00] VITALS: BP 151/67; PULSE 78; RESP 18; TEMP 36.7; O2SAT 99
[2024-04-14] MEDS: SODIUM CHLORIDE 0.9% IV 1,000 ML 125 ML IV CONT ×3 (06:42→20:15)
--- NOTE | 2024-04-14 07:43 | PM.IMPN ---
Progress Note: A&P Assessment and Plan (1) AMS (altered mental status): Qualifiers: Altered mental status type: disorientation Qualified Code(s): R41.0 - Disorientation, unspecified Code(s): R41.82 - Altered mental status, unspecified Status: Acute Assessment and Plan: Spoke with patients RN Kimberli who states that prior to recent hospitalization to [facility] she was ambulatory and very combative (hitting/kicking/biting patients and staff) at the facility. She was placed on the behavioral side of [facility] and started on a new psych medication. On Risperidone which was filled on 04/08 per chart review and a large dose of seroquel 25 mg TID. Will discontinue the risperidone as per uptodate this has increased mortality risks in elderly patients with severe dementia and will decrease the frequency of the seroquel to HS. - Likely delirium secondary to acute infection complicated by dementia vs polypharmacy - Patient is on a fairly large dose of Seroquel 25 mg TID, decreased to HS. Started on Risperidone this month, discontinued at this time. - Head CT: No acute intracranial findings - MRI brain ordered given that patient has AMS (baseline AO 0-1) however she remains somnolent and is not moving extremities. Unable to perform compete neuro assessment given her inability to follow commands. - UA: Cloudy appearance with 2+ protein, 1+ glucose, trace ketones, non hemolyzed blood, positive nitrates, 2+ leukocytes, > 100 WBC, 4+ bacteria 04/14: Patient is much more alert, moving all extremities and talking today. Remains AOx0 per baseline. (2) Acute UTI: Code(s): N39.0 - Urinary tract infection, site not specified Status: Acute Assessment and Plan: - UA: Cloudy appearance with 2+ protein, 1+ glucose, trace ketones, non hemolyzed blood, positive nitrates, 2+ leukocytes, > 100 WBC, 4+ bacteria - UC obtained on 04/12: Ecoli ESBL - previous micro reviewed 03/05/24: klebsiella pneumoniae pansensitive - started on Cipro on 04/13 (Rocephin not started given patients anaphylactic allergy to penicillins), transitioned to meropenem on 04/14 Spoke with pharmacy Keely prior to starting meropenem and she states there is low cross reactivity with penicillin allergies including those of anaphylaxis. Informed patients RN that the antibiotic had been changed and to closely monitor her for the first 24 hours since receiving the medication. (3) Dementia: Code(s): F03.90 - Unspecified dementia, unspecified severity, without behavioral disturbance, psychotic disturbance, mood disturbance, and anxiety Status: Acute Assessment and Plan: Continue home medications. - Aricept 10 mg daily, Lexapro 10 mg daily, Namenda 5 mg daily - Seroquel 25 mg TID, decreased to HS as possible cause of somnolence - Monitor (4) HTN (hypertension), benign: Code(s): I10 - Essential (primary) hypertension Status: Acute Assessment and Plan: Chronic, well controlled on home medications - Amlodipine 5 mg daily - Lisinopril 40 mg daily - Monitor Patient has not been taking oral medications. Blood pressures remained stable despite not receiving these. - Hydralazine 10 mg IV for systolic > 180 ordered (5) Diabetes mellitus: Code(s): E11.9 - Type 2 diabetes mellitus without complications Status: Acute Assessment and Plan: - hypoglycemia protocol - POC blood glucose ACHS - home medication - metformin 1000 mg daily - correct regimen ordered - low dose TIDWM - A1C 7.3 Time Spent With Patient Time with patient: 25 - 35 minutes Subjective Date/time seen: 04/14/24 07:43 Interval history: 68 year old female with past medical history dementia, hypertension, and diabetes presents to the hospital from detention with altered mental status. Per [facility] RN Kimberli, prior to patients recent hospitalization to [facility] she was ambulatory and very combative (hitting/kicking/biting patients and staff) at [facility]. She was placed on the behavioral side of [facility] and started on a new psych medication. THis medication appears to be Risperidone which was filled on 04/08 per chart review and a large dose of seroquel 25 mg TID. Will discontinue the risperidone as per uptodate this has increased mortality risks in elderly patients with severe dementia and will decrease the frequency of the seroquel to HS. Patient is pleasant lying in bed. She is much more alert today moving all extremities and speaking more. Per RN patient is not taking her medications. Hopefully this will improve as she becomes less lethargic, however if she continues to refuse will likely need to discuss hospice. Urine culture positive for EColi with ESBL. Patient transitioned to meropenem. Spoke with pharmacy Keely prior to starting meropenem and she states there is low cross reactivity with penicillin allergies including those of anaphylaxis. Informed patients RN that the antibiotic had been changed and to closely monitor her for the first 24 hours since receiving the medication. Review of Systems Review of Systems: ROS unobtainable: Yes unobtainable due to mental status Exam Narrative: AF HR 78 RR 18 SpO2 99 BP 151/67 General: frail female who looks older than stated age in no acute respiratory distress who is chronically ill appearing, lying semi recumbent in bed. HEENT: Normocephalic. Atraumatic. Sclera clear and anicteric. No facial asymmetry. Chest: Lungs are clear to auscultation bilaterally. No wheezes or crackles. CV: Heart was regular rate and rhythm. S1-S2. No murmurs, gallops, or rubs. Abd: Abdomen was soft. Nontender. Nondistended. Positive bowel sounds. No organomegaly or masses. Ext: No clubbing, cyanosis, or edema. 2+ DP pulses bilaterally. Neuro: Patient is much more alert and acitve today, making eye contact. Moving all extremities. Speaking in sentences. Objective Data Vital Signs Vital Signs: Vital Signs - 24 hr 04/13/24 14:00 04/13/24 22:00 04/13/24 20:00 Temperature 97.0 F L 98.9 F Pulse Rate 98 90 Respiratory Rate 20 18 Blood Pressure 149/53 H 169/78 H Pulse Oximetry 99 98 98 Oxygen Delivery Room Air 04/14/24 06:00 Temperature 98.0 F Pulse Rate 78 Respiratory Rate 18 Blood Pressure 151/67 H Pulse Oximetry 99 Oxygen Delivery Intake/Output Intake/Output: Intake & Output 04/11/24 04/12/24 04/13/24 04/14/24 23:59 23:59 23:59 23:59 Intake Total 200 2700 1000 Balance 200 2700 1000 Meds/Results Medications: Active Medications Generic Name Dose Route Start Last Admin Trade Name Freq PRN Reason Stop Dose Admin Amlodipine Besylate 5 mg 04/13/24 09:00 04/13/24 09:06 Amlodipine Besylate 5 Mg Tablet PO Not Given DAILY [facility] Aspirin 81 mg 04/13/24 09:00 04/13/24 09:07 Aspirin 81 Mg Chewable Tablet PO Not Given DAILY JOAN Atorvastatin Calcium 80 mg 04/13/24 18:00 04/13/24 17:00 Atorvastatin 40 Mg Tablet PO Not Given QPM JOAN Buspirone HCl 5 mg 04/13/24 09:00 04/13/24 16:32 Buspirone Hcl 5 Mg Tablet PO Not Given BID JOAN Dextrose 12.5 gm 04/13/24 08:33 Dextrose 50% 25 Gm/50 Ml Syringe IV PUSH PRN PRN Hypoglycemia Protocol Donepezil HCl 10 mg 04/13/24 21:00 04/13/24 20:58 Donepezil Hcl 10 Mg Tablet PO Not Given HS JOAN Enoxaparin Sodium 40 mg 04/13/24 09:00 04/13/24 08:55 Enoxaparin 40 Mg/0.4 Ml Syringe SUB-Q 40 mg DAILY JOAN Administration Escitalopram Oxalate 10 mg 04/13/24 09:00 04/13/24 09:07 Escitalopram Oxalate 10 Mg Tablet PO Not Given DAILY JOAN Glucagon 1 mg 04/13/24 08:33 Glucagon For Inj 1 Mg Vial IM PRN PRN Hypoglycemia Protocol Glucose 15 gm 04/13/24 08:33 Glucose Oral Gel 15 Gm Of Glucse In 37.5 Gm Tube PO PRN PRN Hypoglycemia Protocol Hydralazine HCl 10 mg 04/13/24 09:06 Hydralazine Hcl 20 Mg/Ml Vial IV PUSH Q8H PRN Blood Pressure - High Ciprofloxacin/Dextrose 200 mls @ 200 mls/hr 04/13/24 09:00 04/13/24 21:49 Cipro 400 Mg/D5w 200 Ml IVPB Infused Q12H JOAN Infusion Sodium Chloride 1,000 mls @ 125 mls/hr 04/12/24 20:35 04/14/24 06:42 Normal Saline Iv IV CONT 125 mls/hr .Q8H JOAN Administration Dextrose 1,000 mls @ 100 mls/hr 04/13/24 08:33 Dextrose 5% 1,000 Ml IVPB PRN PRN Hypoglycemia Protocol Insulin Aspart 2 - 5 units 04/13/24 12:00 04/13/24 17:01 Insulin Aspart (*Bkc) 100 Units/Ml SUB-Q Not Given TIDWM JOAN Protocol Lisinopril 40 mg 04/13/24 09:00 04/13/24 09:07 Lisinopril 20 Mg Tablet PO Not Given DAILY JOAN Memantine 5 mg 04/13/24 09:00 04/13/24 16:32 Memantine 5 Mg Tablet PO Not Given BID JOAN Quetiapine Fumarate 25 mg 04/13/24 21:00 04/13/24 20:58 Quetiapine Fumarate 25 Mg Tablet PO Not Given HS JOAN Trazodone HCl 50 mg 04/13/24 06:24 Trazodone Hcl 50 Mg Tablet PO HS PRN Sleep Radiology Results: ITS Impressions Head CT 04/12/24 20:14 IMPRESSION: No acute intracranial findings. Brain MRI 04/13/24 14:07 IMPRESSION: 1. No evidence of acute infarct or hemorrhage is seen. 2. Brain atrophy with deep white matter ischemic changes. Labs Labs: Laboratory Results - last 24 hr 04/12/24 04/13/24 04/13/24 19:25 08:51 11:49 POC Capillary Glucose 154 H 185 H Hemoglobin A1c 7.3 H 04/13/24 04/13/24 16:41 20:02 POC Capillary Glucose 154 H 151 H Hemoglobin A1c Quality VTE Prophylaxis VTE prophylaxis: pharmacologic ordered
[2024-04-14 07:48] LABS: Glucose Point of Care 165 mg/dl (65-105)
[2024-04-14 08:41] LABS: Basophils Absolute Auto 0.1 K/mm3 (0.0-0.1); Basophils Percent Auto 0.8 % (0.2-1.2); Eosinophils Percent Auto 0.3 % (0-4.4); Hematocrit 32.7 % (37.0-47.0); Hemoglobin 10.9 g/dL (12.0-15.0); Immature Granulocyte Absolute 0.05 K/mm3 (0.00-0.031); Immature Granulocyte Percent A 0.5 % (0-0.5); Lymphocytes Absolute Auto 0.94 K/mm3 (0.9-3.2); Lymphocytes Percent Auto 9.5 % (18.3-44.2); Mean Corpuscular HGB Conc 33.3 g/dl (32-36); Mean Corpuscular Hemoglobin 30.7 pg (26-34); Mean Corpuscular Volume 92.1 fl (80-100); Mean Platelet Volume 10.1 fl (7.4-10.4); Monocytes Absolute Auto 0.5 K/mm3 (0.1-0.6); Monocytes Percent Auto 5.4 % (2.6-8.5); Neutrophils Absolute Auto 8.2 K/mm3 (1.3-6.7); Neutrophils Percent Auto 83.5 % (45.5-73.1); Platelet Count Result 278 k/mm3 (150-375); Red Blood Count 3.55 M/mm3 (4.2-5.4); Red Cell Distribution Width 12.2 % (11.5-14.5); White Blood Count 9.9 K/mm3 (4.5-10.0)
[2024-04-14 08:52] LABS: Alanine Aminotransferase 15 U/L (6-35); Albumin Level 3.1 g/dL (3.5-5.1); Alkaline Phosphatase 86 U/L (38-126); Anion Gap 7 mmol/L (4-12); Aspartate Amino Transferase 24 U/L (14-36); Blood Urea Nitrogen 15 mg/dL (7-17); Calcium 8.5 mg/dL (8.4-10.2); Carbon Dioxide 24 mmol/L (22-30); Chloride 105 mmol/L (98-107); Estimated CRCL calculation 52 ml/min; Estimated Glomerular Filt Rate > 60; Glucose 166 mg/dL (65-110); Potassium 3.6 mmol/L (3.4-5.0); Sodium 136 mmol/L (137-145)
--- NOTE | 2024-04-14 09:09 | PC.NURSE ---
RN spoke to provider Mackenzie about the pt not being able to follow commands when RN attempted to give pt the morning medication. Pt is ano 0 and is verbal but the things that she is saying don't make any sense. Pt is unable to answer questions like her name . RN wasn't able to give any morning meds the only thing that the RN was able to provide was the IV abx as well as lovenox shot.
[2024-04-14] MEDS: amLODIPine BESYLATE 5 MG TABLET PO (09:40)
[2024-04-14] MEDS: ENOXAPARIN 40 MG/0.4 ML SYRINGE SUB-Q (09:42)
[2024-04-14] MEDS: CIPROFLOXACIN 400 MG/D5W 200ML 200 ML 200 MG IVPB (09:51)
[2024-04-14 12:01] LABS: Glucose Point of Care 226 mg/dl (65-105)
[2024-04-14] MEDS: INSULIN ASPART (*BKC) 100 UNITS/ML SUB-Q (13:22)
[2024-04-14 14:00] VITALS: BP 166/73; PULSE 86; RESP 18; TEMP 36.1; O2SAT 100
[2024-04-14] MEDS: MEROPENEM 1 GM/NS 100 ML 1 GM/100 ML BAG IVPB ×2 (15:15→20:16)
[2024-04-14 16:41] LABS: Glucose Point of Care 125 mg/dl (65-105)
--- NOTE | 2024-04-14 17:06 | PC.NURSE ---
RN attempted to give pt 1700 medications but pt is still ANO 0 and RN wasn't able to instruct the patient to take the pills or even get a drink of water. RN did perform oral care for the pt since pts lips and mouth were really dry.
[2024-04-14 19:31] VITALS: BP 166/56; PULSE 90; RESP 16; TEMP 36.9; O2SAT 98
[2024-04-14 20:00] VITALS: PULSE 90; RESP 16; O2SAT 98
[2024-04-14 20:50] LABS: Glucose Point of Care 124 mg/dl (65-105)
[2024-04-14 22:00] VITALS: RESP 18
[2024-04-15 05:43] LABS: Basophils Absolute Auto 0.1 K/mm3 (0.0-0.1); Basophils Percent Auto 0.8 % (0.2-1.2); Eosinophils Percent Auto 0.3 % (0-4.4); Hematocrit 29.8 % (37.0-47.0); Hemoglobin 10.3 g/dL (12.0-15.0); Immature Granulocyte Absolute 0.05 K/mm3 (0.00-0.031); Immature Granulocyte Percent A 0.5 % (0-0.5); Lymphocytes Absolute Auto 1.61 K/mm3 (0.9-3.2); Lymphocytes Percent Auto 15.8 % (18.3-44.2); Mean Corpuscular HGB Conc 34.6 g/dl (32-36); Mean Corpuscular Hemoglobin 30.7 pg (26-34); Mean Platelet Volume 9.9 fl (7.4-10.4); Monocytes Absolute Auto 0.7 K/mm3 (0.1-0.6); Monocytes Percent Auto 6.5 % (2.6-8.5); Neutrophils Absolute Auto 7.7 K/mm3 (1.3-6.7); Neutrophils Percent Auto 76.1 % (45.5-73.1); Platelet Count Result 291 k/mm3 (150-375); Red Blood Count 3.35 M/mm3 (4.2-5.4); Red Cell Distribution Width 12.1 % (11.5-14.5); White Blood Count 10.2 K/mm3 (4.5-10.0)
[2024-04-15 05:54] LABS: Alanine Aminotransferase 13 U/L (6-35); Albumin Level 2.8 g/dL (3.5-5.1); Alkaline Phosphatase 78 U/L (38-126); Anion Gap 6 mmol/L (4-12); Aspartate Amino Transferase 22 U/L (14-36); Bilirubin,Total 0.9 mg/dL (0.2-1.3); Blood Urea Nitrogen 9 mg/dL (7-17); Calcium 8.2 mg/dL (8.4-10.2); Carbon Dioxide 23 mmol/L (22-30); Chloride 106 mmol/L (98-107); Estimated CRCL calculation 52 ml/min; Estimated Glomerular Filt Rate > 60; Glucose 117 mg/dL (65-110); Potassium 3.1 mmol/L (3.4-5.0); Sodium 135 mmol/L (137-145)
[2024-04-15 06:00] VITALS: RESP 16
[2024-04-15] MEDS: MEROPENEM 1 GM/NS 100 ML 1 GM/100 ML BAG IVPB ×3 (06:30→20:25)
[2024-04-15 08:11] LABS: Glucose Point of Care 131 mg/dl (65-105)
[2024-04-15 08:17] LABS: Ammonia < 9 umol/L (9-30)
[2024-04-15] MEDS: POTASSIUM CHLORIDE INJ 40 MEQ in SODIUM CHLORIDE 0.9% IV 500 ML 130 MEQ IVPB (08:49)
[2024-04-15 08:53] VITALS: O2SAT 98
[2024-04-15] MEDS: ENOXAPARIN 40 MG/0.4 ML SYRINGE SUB-Q (08:58)
[2024-04-15 09:01] VITALS: BP 155/63; PULSE 86; RESP 16; TEMP 36.2; O2SAT 98
[2024-04-15 11:47] LABS: Glucose Point of Care 113 mg/dl (65-105)
[2024-04-15 12:54] VITALS: BMI 21.2
[2024-04-15 12:58] LABS: Alveolar/Arterial O2 Gradient 29.3 mmHg; Base Excess ABG -2.5 mEq/l (+/-2.0); Fractional Inspired Oxygen 21 %; HCO3 ABG 21.1 mEq/l (22.0-26.0); Oxygen Content ABG 15.6 %vol (16.0-22.0); Oxygen Saturation ABG 96.4 % (95.0-100.0); Oxyhemoglobin 95.2 % THb (90.0-100.0); PCO2 ABG 32.7 mmHg (35.0-45.0); PO2 ABG 81.3 mmHg (80.0-100.0); PO2 FiO2 Ratio Arterial Blood 3.87 %; Total Hemoglobin 11.6 g/dL (12.0-18.0); pH ABG 7.428 (7.350-7.450)
[2024-04-15 12:59] LABS: Device ROOM AIR; Site Drawn LEFT BRACHIAL
--- NOTE | 2024-04-15 13:10 | P.PNIM_ITS ---
Progress Note: A&P Assessment and Plan (1) AMS (altered mental status): Qualifiers: Altered mental status type: disorientation Qualified Code(s): R41.0 - Disorientation, unspecified Code(s): R41.82 - Altered mental status, unspecified Status: Acute Assessment and Plan: * UA showing E coli on final read, currently on meropenem * Patient was also given large dose of Seroquel and risperidone at [facility], unsure if this is the etiology of her altered mental status * Remains altered mental status, extremely weak appearance, drooling noted, not following commands or regarding * Brain MRI was negative for acute findings as well as CT scan was negative for acute findings * ABG drawn today shown a normal pH and normal pCO2 * Ammonia level was less than 9 * Neurology consulted for further support * EEG ordered as this could also be a postictal state * Patient has been 4 days without food, we will go ahead and place a small bore feeding tube for nutritional purposes, hydration, medication administration. * Dietitian consulted (2) Acute UTI: Code(s): N39.0 - Urinary tract infection, site not specified Status: Acute Assessment and Plan: * Urine culture showing E coli currently on meropenem * Antibiotic choice was discussed with the Infectious Disease pharmacist (3) Dementia: Code(s): F03.90 - Unspecified dementia, unspecified severity, without behavioral disturbance, psychotic disturbance, mood disturbance, and anxiety Status: Acute Assessment and Plan: * Unable to take oral medications at this due to mental status * Plan for small bore feeding tube to be placed today * Dietitian consulted for nutrition (4) HTN (hypertension), benign: Code(s): I10 - Essential (primary) hypertension Status: Acute Assessment and Plan: * Unable to take oral medications due to mental status nursing has been holding * Blood pressures ranging 155/63 to 169/78 * Will place small bore feeding tube today and will assess home medications (5) Diabetes mellitus: Code(s): E11.9 - Type 2 diabetes mellitus without complications Status: Acute Assessment and Plan: * Blood sugars ranging 113-131 * Hgb A1C 7.3 * Accu checks q.6 hour * Low-dose SSI ordered q.6 hours * hypoglycemic protocol in place * Unable to take in oral nutrition * Small bore feeding tube placed for nutrition, hydration, medications * Continue to hold metformin Time Spent With Patient Time with patient: Greater than 35 minutes Subjective Date/time seen: 04/15/24 13:10 Interval history: Interval history: 68 year old female with past medical history dementia, hypertension, and diabetes presents to the hospital from [facility] with altered mental status. Per [facility] TADEO Ag, prior to patients recent hospitalization to [facility] she was ambulatory and very combative (hitting/kicking/biting patients and staff) at [facility]. She was placed on the behavioral side of [facility] and started on a new psych medication. THis medication appears to be Risperidone which was filled on 04/08 per chart review and a large dose of seroquel 25 mg TID. Will discontinue the risperidone as per uptodate this has increased mortality risks in elderly patients with severe dementia and will decrease the frequency of the seroquel to HS. -CT brain was negative for any acute intracranial findings -MRI of brain was negative for any acute intracranial findings, brain atrophy with deep white matter ischemic changes, moderate diffuse cortical atrophy. Subjective: Patient not following commands, does not regard to in the room, appears weak and drooling out the side of her mouth. Labs and imaging reviewed. She has not had nutrition in 4 days. Review of Systems Review of Systems: ROS unobtainable: Yes unobtainable due to mental status Exam Narrative: General: In no acute distress Head:encephalopathy present, slight tremor noted Eyes:sclera injected ENT: moist mucous membranes, nasal passages clear Neck: supple, no JVD, no adenopathy, trachea midline Cardiac: Normal S1 and S2. Murmur noted. No gallops or friction rubs, peripheral pulses intact. Respiratory: Lungs clear to auscultation, no adventitious lung sounds, room air Gastrointestinal: soft, non-distended, non-tender, hypo active bowel sounds. : incontinent Extremities:flaccid Skin: clean, dry, intact. No wounds or lesions. Neuro: Opens eyes to voice however does not regard or follow commands, unable to assess neuro status due to mental status Psych: Unable to assess psych status due to her altered mental status Objective Data Vital Signs Vital Signs: Vital Signs - 24 hr 04/14/24 14:00 04/14/24 19:31 04/14/24 20:00 Temperature 97.0 F L 98.4 F Pulse Rate 86 90 90 Respiratory Rate 18 16 16 Blood Pressure 166/73 H 166/56 H Pulse Oximetry 100 98 98 Oxygen Delivery Room Air 04/14/24 22:00 04/15/24 06:00 04/15/24 09:01 Temperature 97.2 F L Pulse Rate 86 Respiratory Rate 18 16 16 Blood Pressure 155/63 H Pulse Oximetry 98 Oxygen Delivery 04/15/24 08:53 Temperature Pulse Rate Respiratory Rate Blood Pressure Pulse Oximetry 98 Oxygen Delivery Room Air Intake/Output Intake/Output: Intake & Output 04/12/24 04/13/24 04/14/24 04/15/24 23:59 23:59 23:59 23:59 Intake Total 200 2700 2822.9 0 Balance 200 2700 2822.9 0 Meds/Results Medications: Active Medications Generic Name Dose Route Start Last Admin Trade Name Freq PRN Reason Stop Dose Admin Amlodipine Besylate 5 mg 04/13/24 09:00 04/15/24 09:15 Amlodipine Besylate 5 Mg Tablet PO Not Given DAILY JOAN Aspirin 81 mg 04/13/24 09:00 04/15/24 09:15 Aspirin 81 Mg Chewable Tablet PO Not Given DAILY JOAN Atorvastatin Calcium 80 mg 04/13/24 18:00 04/14/24 18:34 Atorvastatin 40 Mg Tablet PO Not Given QPM JOAN Buspirone HCl 5 mg 04/13/24 09:00 04/15/24 09:15 Buspirone Hcl 5 Mg Tablet PO Not Given BID JOAN Dextrose 12.5 gm 04/13/24 08:33 Dextrose 50% 25 Gm/50 Ml Syringe IV PUSH PRN PRN Hypoglycemia Protocol Donepezil HCl 10 mg 04/13/24 21:00 04/14/24 20:16 Donepezil Hcl 10 Mg Tablet PO Not Given HS JOAN Enoxaparin Sodium 40 mg 04/13/24 09:00 04/15/24 08:58 Enoxaparin 40 Mg/0.4 Ml Syringe SUB-Q 40 mg DAILY JOAN Administration Escitalopram Oxalate 10 mg 04/13/24 09:00 04/15/24 09:15 Escitalopram Oxalate 10 Mg Tablet PO Not Given DAILY JOAN Glucagon 1 mg 04/13/24 08:33 Glucagon For Inj 1 Mg Vial IM PRN PRN Hypoglycemia Protocol Glucose 15 gm 04/13/24 08:33 Glucose Oral Gel 15 Gm Of Glucse In 37.5 Gm Tube PO PRN PRN Hypoglycemia Protocol Hydralazine HCl 10 mg 04/13/24 09:06 Hydralazine Hcl 20 Mg/Ml Vial IV PUSH Q8H PRN Blood Pressure - High Sodium Chloride 1,000 mls @ 125 mls/hr 04/12/24 20:35 04/14/24 20:15 Normal Saline Iv IV CONT 125 mls/hr .Q8H JOAN Administration Dextrose 1,000 mls @ 100 mls/hr 04/13/24 08:33 Dextrose 5% 1,000 Ml IVPB PRN PRN Hypoglycemia Protocol Meropenem 1 gm in 100 mls @ 200 mls/hr 04/14/24 14:00 04/15/24 06:30 IVPB 200 mls/hr Q8H JOAN Administration Insulin Aspart 2 - 5 units 04/13/24 12:00 04/15/24 12:11 Insulin Aspart (*Bkc) 100 Units/Ml SUB-Q Not Given TIDWM JOAN Protocol Lisinopril 40 mg 04/13/24 09:00 04/15/24 09:15 Lisinopril 20 Mg Tablet PO Not Given DAILY JOAN Memantine 5 mg 04/13/24 09:00 04/15/24 09:16 Memantine 5 Mg Tablet PO Not Given BID JOAN Quetiapine Fumarate 25 mg 04/13/24 21:00 04/14/24 20:16 Quetiapine Fumarate 25 Mg Tablet PO Not Given HS JOAN Trazodone HCl 50 mg 04/13/24 06:24 Trazodone Hcl 50 Mg Tablet PO HS PRN Sleep Radiology Results: ITS Impressions Head CT 04/12/24 20:14 IMPRESSION: No acute intracranial findings. Brain MRI 04/13/24 14:07 IMPRESSION: 1. No evidence of acute infarct or hemorrhage is seen. 2. Brain atrophy with deep white matter ischemic changes. Labs Labs: Laboratory Results - last 24 hr 04/14/24 04/14/24 04/15/24 16:34 20:10 05:14 WBC 10.2 H RBC 3.35 L Hgb 10.3 L Hct 29.8 L MCV 89.0 MCH 30.7 MCHC 34.6 RDW 12.1 Plt Count 291 MPV 9.9 Immature Gran % (Auto) 0.5 Neut % (Auto) 76.1 H Lymph % (Auto) 15.8 L Josephine % (Auto) 6.5 Eos % (Auto) 0.3 Baso % (Auto) 0.8 Lymph # (Auto) 1.61 Josephine # (Auto) 0.7 H Eos # (Auto) 0.0 Baso # (Auto) 0.1 Abs Immat Gran (auto) 0.05 H Absolute Neuts (auto) 7.7 H Absolute Nucleated RBC 0.000 Nucleated RBC % 0.0 Puncture Site ABG pH ABG pCO2 ABG pO2 ABG PO2/FiO2 Ratio ABG HCO3 ABG O2 Saturation ABG O2 Content ABG Base Excess A-a Gradient Oxyhemoglobin Total Hemoglobin O2 Delivery Device O2 Liters/Min FiO2 Sodium 135 L Potassium 3.1 L Chloride 106 Carbon Dioxide 23 Anion Gap 6 BUN 9 D Creatinine 0.70 Estim Creat Clear Calc 52 Estimated GFR > 60 Glucose 117 H POC Capillary Glucose 125 H 124 H Calcium 8.2 L Total Bilirubin 0.9 AST 22 ALT 13 Alkaline Phosphatase 78 Ammonia Total Protein 6.0 L Albumin 2.8 L 04/15/24 04/15/24 04/15/24 07:56 11:38 12:54 WBC RBC Hgb Hct MCV MCH MCHC RDW Plt Count MPV Immature Gran % (Auto) Neut % (Auto) Lymph % (Auto) Josephine % (Auto) Eos % (Auto) Baso % (Auto) Lymph # (Auto) Josephine # (Auto) Eos # (Auto) Baso # (Auto) Abs Immat Gran (auto) Absolute Neuts (auto) Absolute Nucleated RBC Nucleated RBC % Puncture Site Left brachial ABG pH 7.428 ABG pCO2 32.7 L ABG pO2 81.3 ABG PO2/FiO2 Ratio 3.87 ABG HCO3 21.1 L ABG O2 Saturation 96.4 ABG O2 Content 15.6 L ABG Base Excess -2.5 A-a Gradient 29.3 Oxyhemoglobin 95.2 Total Hemoglobin 11.6 L O2 Delivery Device Room air O2 Liters/Min Not Reportable FiO2 21 Sodium Potassium Chloride Carbon Dioxide Anion Gap BUN Creatinine Estim Creat Clear Calc Estimated GFR Glucose POC Capillary Glucose 131 H 113 H Calcium Total Bilirubin AST ALT Alkaline Phosphatase Ammonia < 9 L Total Protein Albumin Quality VTE Prophylaxis VTE prophylaxis: pharmacologic ordered
--- NOTE | 2024-04-15 13:20 | PCDIET ---
TUBE FEEDING RECOMMENDATIONS: Jevity1.5 @ goal rate 40 ml/h. Flush 100 ml q 4 hours. Start at 20 ml/h and advance by 10 ml q 4 hours until goal rate is reached. 1320 kcal, 56 g protein, 1270 ml total free water
[2024-04-15] MEDS: SODIUM CHLORIDE 0.9% IV 1,000 ML 125 ML IV CONT (14:44)
[2024-04-15 17:03] LABS: Glucose Point of Care 141 mg/dl (65-105)
[2024-04-15] MEDS: ATORVASTATIN 40 MG TABLET 80 MG PO (17:38)
[2024-04-15] MEDS: busPIRone HCL 5 MG TABLET FEED TUBE (17:38)
[2024-04-15] MEDS: MEMANTINE 5 MG TABLET FEED TUBE (17:38)
--- NOTE | 2024-04-15 18:05 | P.CONNEU_ITS ---
Assessment and Plan Assessment and plan (1) Acute metabolic encephalopathy: Code(s): G93.41 - Metabolic encephalopathy Status: Acute (2) Dementia of Alzheimer's type with behavioral disturbance: Code(s): G30.9 - Alzheimer's disease, unspecified; F02.818 - Dementia in other diseases classified elsewhere, unspecified severity, with other behavioral disturbance Status: Acute (3) Diabetes mellitus: Code(s): E11.9 - Type 2 diabetes mellitus without complications Status: Acute Plan The patient has history of dementia of Alzheimer's type with behavioral dis turbance and now she has urinary tract infection that needs to metabolic encephalopathy which has led to hospitalization and she requires treatment of the same and also control her behavior. I agree with the management. I reviewed the MRI of the brain that shows quite remarkable white matter changes as well as significant atrophy of the carballo matter as well as white matter disease. She is on Aricept 10 mg a day and memantine 5 mg twice a day the dose of the later can be increased to 10 mg twice a day. Patient is also on Lexapro 10 mg a day. She may require psychotropic medications if behavior becomes a problem but for now she seems to be more sedated. She is already in institution for patients with memory loss. Please let me know if I could be of any further assistance. Consult date: 04/15/24 HPI: Fiordaliza Menchaca is a 68 year old female With history of dementia currently resident of nursing facility. She is known to have dementia Alzheimer's type and usually combative however she has become more quiet lately. She also history of diabetes mellitus. She is suspected of having urinary tract infection. She is also not eating and drinking well. When I saw her she does not give much in the way of history. She open her eyes and did verbalize which is more of a babbling. She has not had any seizures. Her urinalysis is however suggestive of infection. Review of Systems Review of Systems: ROS unobtainable: Yes unobtainable due to medical condition PMFSH Past Medical History Medical History (Updated 04/15/24 @ 18:12 by Krista Mcnulty MD) Acute metabolic encephalopathy Dementia Dementia of Alzheimer's type with behavioral disturbance Diabetes mellitus HTN (hypertension), benign Social History Social History Smoking status: Unknown if ever smoked Alcohol intake: never Substance use: never Substance use type: does not use Spiritual care concerns: No Meds Home Medications and Allergies Home Medications Medication Instructions Recorded Confirmed Type aspirin 81 mg chewable tablet 81 mg PO DAILY 03/05/24 04/12/24 History atorvastatin 80 mg tablet 80 mg PO QPM 03/05/24 04/12/24 History donepezil 10 mg tablet 10 mg PO HS 03/05/24 04/12/24 History escitalopram oxalate 20 mg tablet 10 mg PO DAILY 03/05/24 04/12/24 History memantine 5 mg tablet 5 mg PO BID 03/05/24 04/12/24 History metformin 500 mg tablet,extended 1,000 mg PO DAILY 03/05/24 04/12/24 History release 24 hr quetiapine 25 mg tablet 25 mg PO TID 03/05/24 04/12/24 History amlodipine 5 mg tablet 5 mg PO DAILY 04/12/24 04/12/24 History buspirone 5 mg tablet 5 mg PO BID 04/12/24 04/12/24 History lisinopril 40 mg tablet 40 mg PO DAILY 04/12/24 04/12/24 History risperidone 1 mg/mL oral solution 2 mg PO BID 04/12/24 04/12/24 History trazodone 50 mg tablet 50 mg PO HS PRN Sleep 04/12/24 04/12/24 History Allergies Allergy/AdvReac Type Severity Reaction Status Date / Time Penicillins Allergy Unknown Anaphylaxis Verified 03/05/24 20:33 Vital Signs Vital Signs - 24 hr 04/14/24 19:31 04/14/24 20:00 04/14/24 22:00 Temperature 98.4 F Pulse Rate 90 90 Respiratory Rate 16 16 18 Blood Pressure 166/56 H Pulse Oximetry 98 98 Oxygen Delivery Room Air 04/15/24 06:00 04/15/24 09:01 04/15/24 08:53 Temperature 97.2 F L Pulse Rate 86 Respiratory Rate 16 16 Blood Pressure 155/63 H Pulse Oximetry 98 98 Oxygen Delivery Room Air Exam Narrative: Patient is drowsy but open her eyes she thrown somewhat of a fit with her both hands and then would do herself again she does not cooperate with examination however she does move all 4 limbs. She does have somewhat of a combination of cogwheeling versus nonspecific rigidity. Results Labs 10/21/24 05:14 04/15/24 05:14 Labs: Short CBC 04/15/24 Range/Units 05:14 WBC 10.2 H (4.5-10.0) K/mm3 Hgb 10.3 L (12.0-15.0) g/dL Hct 29.8 L (37.0-47.0) % Plt Count 291 (150-375) k/mm3 BMP 04/15/24 05:14 Sodium 135 L Potassium 3.1 L Chloride 106 Carbon Dioxide 23 BUN 9 D Creatinine 0.70 Glucose 117 H Calcium 8.2 L Liver Function 04/15/24 Range/Units 05:14 Total Bilirubin 0.9 (0.2-1.3) mg/dL AST 22 (14-36) U/L ALT 13 (6-35) U/L Alkaline Phosphatase 78 (38-126) U/L Albumin 2.8 L (3.5-5.1) g/dL
[2024-04-15 19:48] VITALS: PULSE 86; RESP 16; O2SAT 98
[2024-04-15 20:01] VITALS: BP 170/78; PULSE 114; RESP 16; TEMP 36.8; O2SAT 98
[2024-04-15] MEDS: DONEPEZIL HCL 10 MG TABLET FEED TUBE (20:25)
[2024-04-15 20:29] LABS: Vitamin D 25 Hydroxy 38.2 ng/mL
[2024-04-15 20:51] LABS: Glucose Point of Care 166 mg/dl (65-105)
[2024-04-15 23:12] VITALS: BP 127/59; PULSE 78; RESP 16; TEMP 36.7; O2SAT 98
[2024-04-16] VITALS (8 sets, daily range): BP systolic 126–158; BP diastolic 53–93; PULSE 63–103; RESP 16–18; TEMP 36.3–36.8; O2SAT 94–98
[2024-04-16 00:14] LABS: Glucose Point of Care 175 mg/dl (65-105)
[2024-04-16 04:49] LABS: Glucose Point of Care 191 mg/dl (65-105)
[2024-04-16 05:03] LABS: Basophils Absolute Auto 0.1 K/mm3 (0.0-0.1); Basophils Percent Auto 0.7 % (0.2-1.2); Eosinophils Percent Auto 0.4 % (0-4.4); Hematocrit 28.6 % (37.0-47.0); Hemoglobin 9.9 g/dL (12.0-15.0); Immature Granulocyte Absolute 0.03 K/mm3 (0.00-0.031); Immature Granulocyte Percent A 0.3 % (0-0.5); Lymphocytes Absolute Auto 1.71 K/mm3 (0.9-3.2); Lymphocytes Percent Auto 17.9 % (18.3-44.2); Mean Corpuscular HGB Conc 34.6 g/dl (32-36); Mean Corpuscular Hemoglobin 30.3 pg (26-34); Mean Corpuscular Volume 87.5 fl (80-100); Mean Platelet Volume 9.9 fl (7.4-10.4); Monocytes Absolute Auto 0.9 K/mm3 (0.1-0.6); Neutrophils Absolute Auto 6.8 K/mm3 (1.3-6.7); Neutrophils Percent Auto 71.7 % (45.5-73.1); Platelet Count Result 295 k/mm3 (150-375); Red Blood Count 3.27 M/mm3 (4.2-5.4); Red Cell Distribution Width 12.1 % (11.5-14.5); White Blood Count 9.6 K/mm3 (4.5-10.0)
[2024-04-16 05:14] LABS: Alanine Aminotransferase 14 U/L (6-35); Albumin Level 2.7 g/dL (3.5-5.1); Alkaline Phosphatase 77 U/L (38-126); Anion Gap 2 mmol/L (4-12); Aspartate Amino Transferase 19 U/L (14-36); Bilirubin,Total 0.5 mg/dL (0.2-1.3); Blood Urea Nitrogen 10 mg/dL (7-17); Calcium 8.4 mg/dL (8.4-10.2); Carbon Dioxide 27 mmol/L (22-30); Chloride 106 mmol/L (98-107); Estimated CRCL calculation 52 ml/min; Estimated Glomerular Filt Rate > 60; Glucose 196 mg/dL (65-110); Potassium 3.2 mmol/L (3.4-5.0); Sodium 135 mmol/L (137-145)
[2024-04-16] MEDS: MEROPENEM 1 GM/NS 100 ML 1 GM/100 ML BAG IVPB ×3 (05:52→22:30)
--- NOTE | 2024-04-16 07:38 | PM.IMPN ---
Progress Note: A&P Assessment and Plan (1) AMS (altered mental status): Qualifiers: Altered mental status type: disorientation Qualified Code(s): R41.0 - Disorientation, unspecified Code(s): R41.82 - Altered mental status, unspecified Status: Acute Assessment and Plan: Spoke with patients RN Kimberli who states that prior to recent hospitalization to [facility] she was ambulatory and very combative (hitting/kicking/biting patients and staff) at the facility. She was placed on the behavioral side of cecil and started on a new psych medication. On Risperidone which was filled on 04/08 per chart review and a large dose of seroquel 25 mg TID. Will discontinue the risperidone as per uptodate this has increased mortality risks in elderly patients with severe dementia and will decrease the frequency of the seroquel to HS. - Likely delirium secondary to acute infection complicated by dementia vs polypharmacy - Patient is on a fairly large dose of Seroquel 25 mg TID, decreased to HS. Started on Risperidone this month, discontinued at this time. - Head CT: No acute intracranial findings - MRI brain ordered given that patient has AMS (baseline AO 0-1) however she remains somnolent and is not moving extremities. Unable to perform compete neuro assessment given her inability to follow commands. - UA: Cloudy appearance with 2+ protein, 1+ glucose, trace ketones, non hemolyzed blood, positive nitrates, 2+ leukocytes, > 100 WBC, 4+ bacteria - UC obtained on 04/12: Ecoli ESBL on meropenem 04/14 - ABG 04/15: normal pH and pCO2 - Ammonia level < 9 - Patient has been 4 days without food, we will go ahead and place a small bore feeding tube for nutritional purposes, hydration, medication administration. Tube placement: Successful fluoroscopy-guided Dobbhoff feeding tube placement with distal tip in the fourth portion of the duodenum. Autoclave Operator consulted, remains on Jevity 1.5 at 40 ml and tolerating it well - Neuro consulted EEG ordered (2) Acute UTI: Code(s): N39.0 - Urinary tract infection, site not specified Status: Acute Assessment and Plan: - UA: Cloudy appearance with 2+ protein, 1+ glucose, trace ketones, non hemolyzed blood, positive nitrates, 2+ leukocytes, > 100 WBC, 4+ bacteria - UC obtained on 04/12: Ecoli ESBL - previous micro reviewed 03/05/24: klebsiella pneumoniae pansensitive - started on Cipro on 04/13 (Rocephin not started given patients anaphylactic allergy to penicillins), transitioned to meropenem on 04/14 Spoke with pharmacy Keely prior to starting meropenem and she states there is low cross reactivity with penicillin allergies including those of anaphylaxis. Informed patients RN that the antibiotic had been changed and to closely monitor her for the first 24 hours since receiving the medication. (3) Dementia: Code(s): F03.90 - Unspecified dementia, unspecified severity, without behavioral disturbance, psychotic disturbance, mood disturbance, and anxiety Status: Acute Assessment and Plan: Continue home medications. - Aricept 10 mg daily, Lexapro 10 mg daily, Namenda 5 mg daily (increased to BID) - Seroquel 25 mg TID, decreased to HS as possible cause of somnolence - Risperdal discontinued - Neurology consulted, she is on Aricept 10 mg a day and memantine 5 mg twice a day the dose of the later can be increased to 10 mg twice a day. - Monitor (4) HTN (hypertension), benign: Code(s): I10 - Essential (primary) hypertension Status: Acute Assessment and Plan: Chronic, well controlled on home medications - Amlodipine 5 mg daily - Lisinopril 40 mg daily - Monitor (5) Diabetes mellitus: Code(s): E11.9 - Type 2 diabetes mellitus without complications Status: Acute Assessment and Plan: - hypoglycemia protocol - POC blood glucose ACHS - home medication - metformin 1000 mg daily - correct regimen ordered - low dose TIDWM - A1C 7.3 Time Spent With Patient Time with patient: 25 - 35 minutes Subjective Date/time seen: 04/16/24 07:38 Interval history: 68 year old female with past medical history dementia, hypertension, and diabetes [facility] from [facility] with altered mental status. Per Nery Ag, prior to patients recent hospitalization to [facility] she was ambulatory and very combative (hitting/kicking/biting patients and staff) at [facility]. She was placed on the behavioral side of cecil and started on a new psych medication. THis medication appears to be Risperidone which was filled on 04/08 per chart review and a large dose of seroquel 25 mg TID. Will discontinue the risperidone as per uptodate this has increased mortality risks in elderly patients with severe dementia and will decrease the frequency of the seroquel to HS. Patient is pleasant lying in bed with sitter at bedside. She is alert, making eye contact, moving all extremities and talking. Patient had dophof placed yesterday and remains on Jevity 1.5 at 40 ml, tolerating it well. Call made at 1500 to patients , Jef and voicemail left with call back number. Review of Systems Review of Systems: ROS unobtainable: Yes unobtainable due to mental status Exam Narrative: General: frail female who looks older than stated age in no acute respiratory distress who is chronically ill appearing, lying semi recumbent in bed with sitter at bedside HEENT: Normocephalic. Atraumatic. Sclera clear and anicteric. No facial asymmetry. Dophoff in place. Chest: Lungs are clear to auscultation bilaterally. No wheezes or crackles. CV: Heart was regular rate and rhythm. S1-S2. No murmurs, gallops, or rubs. Abd: Abdomen was soft. Nontender. Nondistended. Positive bowel sounds. No organomegaly or masses. Ext: No clubbing, cyanosis, or edema. 2+ DP pulses bilaterally. Neuro: Patient is alert and active today, making eye contact. Moving all extremities. Speaking in sentences. Objective Data Vital Signs Vital Signs: Vital Signs - 24 hr 04/15/24 09:01 04/15/24 08:53 04/15/24 19:48 Temperature 97.2 F L Pulse Rate 86 86 Respiratory Rate 16 16 Blood Pressure 155/63 H Pulse Oximetry 98 98 98 Oxygen Delivery Room Air Room Air 04/15/24 20:01 04/15/24 23:12 04/16/24 05:33 Temperature 98.3 F 98.1 F 98.2 F Pulse Rate 114 H 78 63 Respiratory Rate 16 16 16 Blood Pressure 170/78 H 127/59 L 133/72 Pulse Oximetry 98 98 94 Oxygen Delivery Intake/Output Intake/Output: Intake & Output 04/13/24 04/14/24 04/15/24 04/16/24 23:59 23:59 23:59 23:59 Intake Total 2700 2822.9 1820 0 Output Total 200 0 Balance 2700 2822.9 1620 0 Meds/Results Medications: Active Medications Generic Name Dose Route Start Last Admin Trade Name Freq PRN Reason Stop Dose Admin Amlodipine Besylate 5 mg 04/16/24 09:00 Amlodipine Besylate 5 Mg Tablet FEED TUBE DAILY [facility] Aspirin 81 mg 04/16/24 09:00 Aspirin 81 Mg Chewable Tablet FEED TUBE DAILY [facility] Atorvastatin Calcium 80 mg 04/13/24 18:00 04/15/24 17:38 Atorvastatin 40 Mg Tablet PO 80 mg QPM JOAN Administration Buspirone HCl 5 mg 04/15/24 17:00 04/15/24 17:38 Buspirone Hcl 5 Mg Tablet FEED TUBE 5 mg BID JOAN Administration Dextrose 12.5 gm 04/13/24 08:33 Dextrose 50% 25 Gm/50 Ml Syringe IV PUSH PRN PRN Hypoglycemia Protocol Donepezil HCl 10 mg 04/15/24 21:00 04/15/24 20:25 Donepezil Hcl 10 Mg Tablet FEED TUBE 10 mg HS [facility] Administration Enoxaparin Sodium 40 mg 04/13/24 09:00 04/15/24 08:58 Enoxaparin 40 Mg/0.4 Ml Syringe SUB-Q 40 mg DAILY JOAN Administration Escitalopram Oxalate 10 mg 04/16/24 09:00 Escitalopram Oxalate 10 Mg Tablet FEED TUBE DAILY [facility] Glucagon 1 mg 04/13/24 08:33 Glucagon For Inj 1 Mg Vial IM PRN PRN Hypoglycemia Protocol Glucose 15 gm 04/13/24 08:33 Glucose Oral Gel 15 Gm Of Glucse In 37.5 Gm Tube PO PRN PRN Hypoglycemia Protocol Hydralazine HCl 10 mg 04/15/24 14:11 Hydralazine Hcl 20 Mg/Ml Vial IV PUSH Q8H PRN Blood Pressure - High Dextrose 1,000 mls @ 100 mls/hr 04/13/24 08:33 Dextrose 5% 1,000 Ml IVPB PRN PRN Hypoglycemia Protocol Meropenem 1 gm in 100 mls @ 200 mls/hr 04/14/24 14:00 04/16/24 05:52 IVPB 04/21/24 06:29 200 mls/hr Q8H JOAN Administration Insulin Aspart 2 - 5 units 04/15/24 18:00 04/16/24 05:10 Insulin Aspart (*Bkc) 100 Units/Ml SUB-Q Not Given Q6HR [facility] Protocol Lisinopril 40 mg 04/16/24 09:00 Lisinopril 20 Mg Tablet FEED TUBE DAILY JOAN Memantine 5 mg 04/15/24 17:00 04/15/24 17:38 Memantine 5 Mg Tablet FEED TUBE 5 mg BID JOAN Administration Quetiapine Fumarate 25 mg 04/13/24 21:00 04/14/24 20:16 Quetiapine Fumarate 25 Mg Tablet PO Not Given HS JOAN Trazodone HCl 50 mg 04/13/24 06:24 Trazodone Hcl 50 Mg Tablet PO HS PRN Sleep Radiology Results: ITS Impressions Head CT 04/12/24 20:14 IMPRESSION: No acute intracranial findings. Brain MRI 04/13/24 14:07 IMPRESSION: 1. No evidence of acute infarct or hemorrhage is seen. 2. Brain atrophy with deep white matter ischemic changes. Labs Labs: Laboratory Results - last 24 hr 04/15/24 04/15/24 04/15/24 07:56 11:38 12:54 WBC RBC Hgb Hct MCV MCH MCHC RDW Plt Count MPV Immature Gran % (Auto) Neut % (Auto) Lymph % (Auto) Frio % (Auto) Eos % (Auto) Baso % (Auto) Lymph # (Auto) Frio # (Auto) Eos # (Auto) Baso # (Auto) Abs Immat Gran (auto) Absolute Neuts (auto) Absolute Nucleated RBC Nucleated RBC % Puncture Site Left brachial ABG pH 7.428 ABG pCO2 32.7 L ABG pO2 81.3 ABG PO2/FiO2 Ratio 3.87 ABG HCO3 21.1 L ABG O2 Saturation 96.4 ABG O2 Content 15.6 L ABG Base Excess -2.5 A-a Gradient 29.3 Oxyhemoglobin 95.2 Total Hemoglobin 11.6 L O2 Delivery Device Room air O2 Liters/Min Not Reportable FiO2 21 Sodium Potassium Chloride Carbon Dioxide Anion Gap BUN Creatinine Estim Creat Clear Calc Estimated GFR Glucose POC Capillary Glucose 131 H 113 H Calcium Total Bilirubin AST ALT Alkaline Phosphatase Ammonia < 9 L Total Protein Albumin Vitamin B12 Vitamin D 25-Hydroxy Folate 04/15/24 04/15/24 04/15/24 16:54 19:41 19:54 WBC RBC Hgb Hct MCV MCH MCHC RDW Plt Count MPV Immature Gran % (Auto) Neut % (Auto) Lymph % (Auto) Frio % (Auto) Eos % (Auto) Baso % (Auto) Lymph # (Auto) Frio # (Auto) Eos # (Auto) Baso # (Auto) Abs Immat Gran (auto) Absolute Neuts (auto) Absolute Nucleated RBC Nucleated RBC % Puncture Site ABG pH ABG pCO2 ABG pO2 ABG PO2/FiO2 Ratio ABG HCO3 ABG O2 Saturation ABG O2 Content ABG Base Excess A-a Gradient Oxyhemoglobin Total Hemoglobin O2 Delivery Device O2 Liters/Min FiO2 Sodium Potassium Chloride Carbon Dioxide Anion Gap BUN Creatinine Estim Creat Clear Calc Estimated GFR Glucose POC Capillary Glucose 141 H 166 H Calcium Total Bilirubin AST ALT Alkaline Phosphatase Ammonia Total Protein Albumin Vitamin B12 603.0 Vitamin D 25-Hydroxy 38.2 Folate 8.0 04/16/24 04/16/24 00:11 04:46 WBC 9.6 RBC 3.27 L Hgb 9.9 L Hct 28.6 L MCV 87.5 MCH 30.3 MCHC 34.6 RDW 12.1 Plt Count 295 MPV 9.9 Immature Gran % (Auto) 0.3 Neut % (Auto) 71.7 Lymph % (Auto) 17.9 L Frio % (Auto) 9.0 H Eos % (Auto) 0.4 Baso % (Auto) 0.7 Lymph # (Auto) 1.71 Frio # (Auto) 0.9 H Eos # (Auto) 0.0 Baso # (Auto) 0.1 Abs Immat Gran (auto) 0.03 Absolute Neuts (auto) 6.8 H Absolute Nucleated RBC 0.000 Nucleated RBC % 0.0 Puncture Site ABG pH ABG pCO2 ABG pO2 ABG PO2/FiO2 Ratio ABG HCO3 ABG O2 Saturation ABG O2 Content ABG Base Excess A-a Gradient Oxyhemoglobin Total Hemoglobin O2 Delivery Device O2 Liters/Min FiO2 Sodium 135 L Potassium 3.2 L Chloride 106 Carbon Dioxide 27 Anion Gap 2 L BUN 10 Creatinine 0.70 Estim Creat Clear Calc 52 Estimated GFR > 60 Glucose 196 H POC Capillary Glucose 175 H 191 H Calcium 8.4 Total Bilirubin 0.5 AST 19 ALT 14 Alkaline Phosphatase 77 Ammonia Total Protein 5.0 L Albumin 2.7 L Vitamin B12 Vitamin D 25-Hydroxy Folate Quality VTE Prophylaxis VTE prophylaxis: pharmacologic ordered
[2024-04-16 08:23] LABS: Glucose Point of Care 236 mg/dl (65-105)
[2024-04-16] MEDS: POTASSIUM CHLORIDE 20 MEQ PACKET (FOR LIQUID) 40 MEQ PO (08:27)
[2024-04-16] MEDS: ASPIRIN 81 MG CHEWABLE TABLET FEED TUBE (08:29)
[2024-04-16] MEDS: ENOXAPARIN 40 MG/0.4 ML SYRINGE SUB-Q (08:29)
[2024-04-16] MEDS: busPIRone HCL 5 MG TABLET FEED TUBE ×2 (08:29→17:05)
[2024-04-16] MEDS: amLODIPine BESYLATE 5 MG TABLET FEED TUBE (08:29)
[2024-04-16] MEDS: lisinopriL 20 MG TABLET 40 MG FEED TUBE (08:30)
[2024-04-16] MEDS: MEMANTINE 5 MG TABLET FEED TUBE (08:30)
[2024-04-16] MEDS: ESCITALOPRAM OXALATE 10 MG TABLET FEED TUBE (08:30)
--- NOTE | 2024-04-16 10:35 | PCNFU ---
Nutrition Follow-Up Complete: Severe protein calorie malnutrition related to dementia, loss of appetite, inability to meet estimated needs PO as evidenced by weight loss -10%/1 month; intakes <75% needs >1 month. Goal:Meet estimated nutrition needs Pt meeting goal via tube feeding. Pt current nutrition is Jevity 1.5 @ 40ml/hr. Nutrition recommendation: continue with current plan of care Last recorded weight is 52.7 kg. Bowel Motility: +BM 04/14 Labs Reviewed: Hgb:9.9, HCT:28.6, NA:135, K:3.2, Glu:236 Meds Noted: novolog, lovenox Skin: WNL Additional Notes: pt started on tube feedings: Jevity 1.5 @ 40ml, tolerating well. This is providing 1320kcals, 56g protein, 669ml free water. 100ml flush q 4 hrs for a total of 1270ml free water. Tube feeding running per RD recommendation. Monitor swallow ability, tube feeding orders, tube feeding tolerance, weights, labs, plan of care Follow up Monday and Monday per policy
[2024-04-16 11:44] LABS: Glucose Point of Care 183 mg/dl (65-105)
--- NOTE | 2024-04-16 11:53 | PC.NURSE ---
On 04/16/24, the student, [Mae Gomes], provided care and completed [facility] documentation on this patient. I have reviewed the student's documentation and agree with the findings.
[2024-04-16 16:41] LABS: Glucose Point of Care 239 mg/dl (65-105)
[2024-04-16] MEDS: INSULIN ASPART (*BKC) 100 UNITS/ML SUB-Q (17:01)
[2024-04-16] MEDS: ATORVASTATIN 40 MG TABLET 80 MG PO (17:04)
--- NOTE | 2024-04-16 18:12 | PC.NURSE ---
Flushed dobhoff feeding tube with evening meds and restarted Jevity. At 17:50, tube feeding pump showed occlusion. Attempted to flush line with water and was unsuccessful. Notified provider and xray was requested for placement.
--- NOTE | 2024-04-16 22:54 | PC.NURSE ---
At 2250 pt became very restless and pulled the feeding tube partially out of her right nare. I came in and removed the tube the rest of the way due to patient getting aggitated and trying to contiue to pull the tube out. Pt is unable to be redirected and cannot follow commands
[2024-04-16 23:22] LABS: Glucose Point of Care 125 mg/dl (65-105)
[2024-04-17] MEDS: DEXTROSE 5%/0.45% SOD CHL 1,000 ML 45 ML IV CONT ×2 (02:15→23:18)
[2024-04-17 04:44] VITALS: BP 149/64; PULSE 77; RESP 16; TEMP 36.3; O2SAT 99
[2024-04-17 05:04] LABS: Glucose Point of Care 175 mg/dl (65-105)
[2024-04-17] MEDS: MEROPENEM 1 GM/NS 100 ML 1 GM/100 ML BAG IVPB ×3 (05:17→21:17)
[2024-04-17 05:49] LABS: Basophils Absolute Auto 0.1 K/mm3 (0.0-0.1); Basophils Percent Auto 1.2 % (0.2-1.2); Eosinophils Absolute Auto 0.1 K/mm3 (0-0.3); Eosinophils Percent Auto 1.1 % (0-4.4); Hematocrit 28.6 % (37.0-47.0); Hemoglobin 10.1 g/dL (12.0-15.0); Immature Granulocyte Absolute 0.04 K/mm3 (0.00-0.031); Immature Granulocyte Percent A 0.5 % (0-0.5); Lymphocytes Absolute Auto 1.56 K/mm3 (0.9-3.2); Lymphocytes Percent Auto 18.4 % (18.3-44.2); Mean Corpuscular HGB Conc 35.3 g/dl (32-36); Mean Corpuscular Hemoglobin 30.2 pg (26-34); Mean Corpuscular Volume 85.6 fl (80-100); Mean Platelet Volume 9.9 fl (7.4-10.4); Monocytes Absolute Auto 0.7 K/mm3 (0.1-0.6); Monocytes Percent Auto 7.9 % (2.6-8.5); Neutrophils Percent Auto 70.9 % (45.5-73.1); Platelet Count Result 315 k/mm3 (150-375); Red Blood Count 3.34 M/mm3 (4.2-5.4); White Blood Count 8.5 K/mm3 (4.5-10.0)
[2024-04-17 06:03] LABS: Alanine Aminotransferase 16 U/L (6-35); Albumin Level 2.9 g/dL (3.5-5.1); Alkaline Phosphatase 81 U/L (38-126); Anion Gap 4 mmol/L (4-12); Aspartate Amino Transferase 24 U/L (14-36); Bilirubin,Total 0.7 mg/dL (0.2-1.3); Blood Urea Nitrogen 6 mg/dL (7-17); Calcium 8.5 mg/dL (8.4-10.2); Carbon Dioxide 29 mmol/L (22-30); Chloride 104 mmol/L (98-107); Estimated CRCL calculation 60 ml/min; Estimated Glomerular Filt Rate > 60; Glucose 181 mg/dL (65-110); Sodium 137 mmol/L (137-145)
[2024-04-17 08:16] LABS: Glucose Point of Care 176 mg/dl (65-105)
--- NOTE | 2024-04-17 08:31 | P.PNIM_ITS ---
Progress Note: A&P Assessment and Plan (1) AMS (altered mental status): Qualifiers: Altered mental status type: disorientation Qualified Code(s): R41.0 - Disorientation, unspecified Code(s): R41.82 - Altered mental status, unspecified Status: Acute Assessment and Plan: Spoke with patients RN Kimberli who states that prior to recent hospitalization to [facility] she was ambulatory and very combative (hitting/kicking/biting patients and staff) at the facility. She was placed on the behavioral side of [facility] and started on a new psych medication. On Risperidone which was filled on 04/08 per chart review and a large dose of seroquel 25 mg TID. Will discontinue the risperidone as per uptodate this has increased mortality risks in elderly patients with severe dementia and will decrease the frequency of the seroquel to HS. - Likely delirium secondary to acute infection complicated by dementia vs polypharmacy - Patient is on a fairly large dose of Seroquel 25 mg TID, decreased to HS. Started on Risperidone this month, discontinued at this time. - Head CT: No acute intracranial findings - MRI brain ordered given that patient has AMS (baseline AO 0-1) however she remains somnolent and is not moving extremities. Unable to perform compete neuro assessment given her inability to follow commands. - UA: Cloudy appearance with 2+ protein, 1+ glucose, trace ketones, non hemolyzed blood, positive nitrates, 2+ leukocytes, > 100 WBC, 4+ bacteria - UC obtained on 04/12: Ecoli ESBL on meropenem 04/14 - ABG 04/15: normal pH and pCO2 - Ammonia level < 9 - Patient has been 4 days without food, we will go ahead and place a small bore feeding tube for nutritional purposes, hydration, medication administration. Tube placement: Successful fluoroscopy-guided Dobbhoff feeding tube placement with distal tip in the fourth portion of the duodenum. [employer] [facility] A[employer] consulted, remains on Jevity 1.5 at 40 ml and tolerating it well - Neuro consulted EEG ordered 04/17- no NG/Dobhoff access -will do swallow bedside and if needed modified barium - if able to swallow- ok to resume po intake and PO meds - continue to monitor for aspiration -hob 30 degrees or more when eating- ideally up to the chair - sitter at bedside if needed - if continue to pull on lines- will consider mitmike (2) Acute UTI: Code(s): N39.0 - Urinary tract infection, site not specified Status: Acute Assessment and Plan: - UA: Cloudy appearance with 2+ protein, 1+ glucose, trace ketones, non hemolyzed blood, positive nitrates, 2+ leukocytes, > 100 WBC, 4+ bacteria - UC obtained on 04/12: Ecoli ESBL - previous micro reviewed 03/05/24: klebsiella pneumoniae pansensitive - started on Cipro on 04/13 (Rocephin not started given patients anaphylactic allergy to penicillins), transitioned to meropenem on 04/14 Spoke with pharmacy Keely prior to starting meropenem and she states there is low cross reactivity with penicillin allergies including those of anaphylaxis. Informed patients RN that the antibiotic had been changed and to closely monitor her for the first 24 hours since receiving the medication. (3) Dementia: Code(s): F03.90 - Unspecified dementia, unspecified severity, without behavioral disturbance, psychotic disturbance, mood disturbance, and anxiety Status: Acute Assessment and Plan: Continue home medications. - Aricept 10 mg daily, Lexapro 10 mg daily, Namenda 5 mg daily (increased to BID) - Seroquel 25 mg TID, decreased to HS as possible cause of somnolence - Risperdal discontinued - Neurology consulted, she is on Aricept 10 mg a day and memantine 5 mg twice a day the dose of the later can be increased to 10 mg twice a day. - Monitor (4) HTN (hypertension), benign: Code(s): I10 - Essential (primary) hypertension Status: Acute Assessment and Plan: Chronic, well controlled on home medications - Amlodipine 5 mg daily - Lisinopril 40 mg daily - Monitor (5) Diabetes mellitus: Code(s): E11.9 - Type 2 diabetes mellitus without complications Status: Acute Assessment and Plan: - hypoglycemia protocol - POC blood glucose ACHS - home medication - metformin 1000 mg daily - correct regimen ordered - low dose TIDWM - A1C 7.3 Time Spent With Patient Time with patient: Greater than 35 minutes Subjective Date/time seen: 04/17/24 08:31 Interval history: 68 year old female with past medical history dementia, hypertension, and diabetes presents [facility] hospital from [facility] with altered mental status. Per Nery Ag, prior to patients recent hospitalization to [facility] she was ambulatory and very combative (hitting/kicking/biting patients and staff) at [facility]. She was placed on the behavioral side of [facility] and started on a new psych medication. THis medication appears to be Risperidone which was filled on 04/08 per chart review and a large dose of seroquel 25 mg TID. Will discontinue the risperidone as per uptodate this has increased mortality risks in elderly patients with severe dementia and will decrease the frequency of the seroquel to HS. Patient is pleasant lying in bed with sitter at bedside. She is alert, making eye contact, moving all extremities and talking. Patient had dobhof placed yesterday and remains on Jevity 1.5 at 40 ml, tolerating it well. Call made at 1500 to patients , Jef and voicemail left with call back number. 04/17- was reported that pt pulled dobhoff off overnight. will try to call again today to discuss plan of care - [phone]. Called and discussed plan of care- Jef is oppose to comfort/hospice care. Will be coming over in 30-60 min- will discuss in more details. Pt's and sister wants to do full treatment- whatever it takes. Bedside swallow eval first and if failed-will decide if peg tube appropriate. Review of Systems Review of Systems: ROS unobtainable: Yes unobtainable due to mental status Exam Narrative: General: frail female who looks older than stated age in no acute respiratory distress who is chronically ill appearing, lying semi recumbent in bed with sitter at bedside HEENT: Normocephalic. Atraumatic. Sclera clear and anicteric. No facial asymmetry. Dophoff in place. Chest: Lungs are clear to auscultation bilaterally. No wheezes or crackles. CV: Heart was regular rate and rhythm. S1-S2. No murmurs, gallops, or rubs. Abd: Abdomen was soft. Nontender. Nondistended. Positive bowel sounds. No orga nomegaly or masses. Ext: No clubbing, cyanosis, or edema. 2+ DP pulses bilaterally. Neuro: Patient is alert and active today, making eye contact. Moving all extremities. Speaking in sentences. Const: General: comfortable, no acute distress, well developed, ill appearing acutely, lethargic, patient obtunded and average body habitus Nutritional Appearance: average body habitus Orientation/consciousness: patient obtunded and lethargic HENMT: Head: normal to inspection, normocephalic and atraumatic Ears: hearing grossly normal bilaterally Face/Nose/Sinus: normal facial exam Face and sinus: normal facial exam Eyes: General: appearance normal, both eyes and all related structures Pupils: Equal, round and reactive pupils present EOM: EOMs intact bilaterally Neck: Neck: full ROM, no lymphadenopathy and no JVD Thyroid: thyroid normal Lymphatic: no lymphadenopathy noted Resp: Effort & Inspection: normal respiratory effort and able to speak in complete sentences Auscultation: clear to auscultation bilaterally Cardio: Jugular venous distension: no JVD Rate: regular rate Rhythm: regular rhythm Heart sounds: S1 normal heart sound present and S2 normal heart sound present : General: Yes deferred Skin: Rashes: no rashes Wounds: no wounds Neuro: General: moves all extremities, no focal motor deficits, patient obtu nded and Unable to assess gait Cranial nerves: Yes CN's II-XII intact bilaterally and Yes Equal, round and reactive pupils present Cognition (Neuro): abnormal cognition (lethargy/obtundation) Speech: normal speech Gait exam (Neuro): Unable to assess gait Motor exam (neuro): 5/5 motor strength present throughout Extrem: General: normal to inspection, full ROM, no joint enlargement and no pedal edema Objective Data Vital Signs Vital Signs: Vital Signs - 24 hr 04/16/24 13:26 04/16/24 14:00 04/16/24 19:52 Temperature 97.3 F L 97.6 F 97.5 F L Pulse Rate 103 H 68 75 Respiratory Rate 18 18 16 Blood Pressure 126/81 140/53 L 147/93 H Pulse Oximetry 98 96 95 Oxygen Delivery 04/16/24 20:00 04/17/24 04:44 04/16/24 21:24 Temperature 97.4 F L Pulse Rate 77 Respiratory Rate 16 Blood Pressure 149/64 H Pulse Oximetry 99 95 Oxygen Delivery Room Air Room Air Intake/Output Intake/Output: Intake & Output 04/14/24 04/15/24 04/16/24 04/17/24 23:59 23:59 23:59 23:59 Intake Total 2822.9 1820 300 Output Total 200 851 400 Balance 2822.9 1620 -720 -400 Meds/Results Medications: Active Medications Generic Name Dose Route Start Last Admin Trade Name Freq PRN Reason Stop Dose Admin Amlodipine Besylate 5 mg 04/16/24 09:00 04/16/24 08:29 Amlodipine Besylate 5 Mg Tablet FEED TUBE 5 mg DAILY JOAN Administration Aspirin 81 mg 04/16/24 09:00 04/16/24 08:29 Aspirin 81 Mg Chewable Tablet FEED TUBE 81 mg DAILY JOAN Administration Atorvastatin Calcium 80 mg 04/13/24 18:00 04/16/24 17:04 Atorvastatin 40 Mg Tablet PO 80 mg QPM JOAN Administration Buspirone HCl 5 mg 04/15/24 17:00 04/16/24 17:05 Buspirone Hcl 5 Mg Tablet FEED TUBE 5 mg BID JOAN Administration Dextrose 12.5 gm 04/13/24 08:33 Dextrose 50% 25 Gm/50 Ml Syringe IV PUSH PRN PRN Hypoglycemia Protocol Donepezil HCl 10 mg 04/15/24 21:00 04/16/24 21:17 Donepezil Hcl 10 Mg Tablet FEED TUBE Not Given HS JOAN Enoxaparin Sodium 40 mg 04/13/24 09:00 04/16/24 08:29 Enoxaparin 40 Mg/0.4 Ml Syringe SUB-Q 40 mg DAILY JOAN Administration Escitalopram Oxalate 10 mg 04/16/24 09:00 04/16/24 08:30 Escitalopram Oxalate 10 Mg Tablet FEED TUBE 10 mg DAILY JOAN Administration Glucagon 1 mg 04/13/24 08:33 Glucagon For Inj 1 Mg Vial IM PRN PRN Hypoglycemia Protocol Glucose 15 gm 04/13/24 08:33 Glucose Oral Gel 15 Gm Of Glucse In 37.5 Gm Tube PO PRN PRN Hypoglycemia Protocol Hydralazine HCl 10 mg 04/15/24 14:11 Hydralazine Hcl 20 Mg/Ml Vial IV PUSH Q8H PRN Blood Pressure - High Dextrose 1,000 mls @ 100 mls/hr 04/13/24 08:33 Dextrose 5% 1,000 Ml IVPB PRN PRN Hypoglycemia Protocol Meropenem 1 gm in 100 mls @ 200 mls/hr 04/14/24 14:00 04/17/24 05:17 IVPB 04/21/24 06:29 200 mls/hr Q8H JOAN Administration Dextrose/Sodium Chloride 1,000 mls @ 45 mls/hr 04/16/24 23:00 04/17/24 02:15 Dextrose 5% Sodium Chloride 0.45% IV CONT 45 mls/hr .[id number] JOAN Administration Insulin Aspart 2 - 5 units 04/15/24 18:00 04/17/24 05:18 Insulin Aspart (*Bkc) 100 Units/Ml SUB-Q Not Given Q6HR JOAN Protocol Lisinopril 40 mg 04/16/24 09:00 04/16/24 08:30 Lisinopril 20 Mg Tablet FEED TUBE 40 mg DAILY JOAN Administration Memantine 5 mg 04/16/24 09:00 04/16/24 21:17 Memantine 5 Mg Tablet FEED TUBE Not Given Q12HR JOAN Quetiapine Fumarate 25 mg 04/13/24 21:00 04/14/24 20:16 Quetiapine Fumarate 25 Mg Tablet PO Not Given HS JOAN Trazodone HCl 50 mg 04/13/24 06:24 Trazodone Hcl 50 Mg Tablet PO HS PRN Sleep Radiology Results: ITS Impressions Head CT 04/12/24 20:14 IMPRESSION: No acute intracranial findings. Brain MRI 04/13/24 14:07 IMPRESSION: 1. No evidence of acute infarct or hemorrhage is seen. 2. Brain atrophy with deep white matter ischemic changes. Abdomen X-Ray 04/16/24 18:57 IMPRESSION: Feeding tube projecting over the left upper quadrant for which further characterization of its location is limited without contrast injection. Labs Labs: Laboratory Results - last 24 hr 04/16/24 04/16/24 04/16/24 11:38 16:33 23:18 WBC RBC Hgb Hct MCV MCH MCHC RDW Plt Count MPV Immature Gran % (Auto) Neut % (Auto) Lymph % (Auto) [facility] [facility] % (Auto) Eos % (Auto) Baso % (Auto) Lymph # (Auto) [facility] # (Auto) Eos # (Auto) Baso # (Auto) Abs Immat Gran (auto) Absolute Neuts (auto) Absolute Nucleated RBC Nucleated RBC % Sodium Potassium Chloride Carbon Dioxide Anion Gap BUN Creatinine Estim Creat Clear Calc Estimated GFR Glucose POC Capillary Glucose 183 H 239 H 125 H Calcium Total Bilirubin AST ALT Alkaline Phosphatase Total Protein Albumin 04/17/24 04/17/24 04/17/24 04:36 05:28 08:10 WBC 8.5 RBC 3.34 L Hgb 10.1 L Hct 28.6 L MCV 85.6 MCH 30.2 MCHC 35.3 RDW 12.0 Plt Count 315 MPV 9.9 Immature Gran % (Auto) 0.5 Neut % (Auto) 70.9 Lymph % (Auto) 18.4 [facility] % (Auto) 7.9 Eos % (Auto) 1.1 Baso % (Auto) 1.2 Lymph # (Auto) 1.56 [facility] # (Auto) 0.7 H Eos # (Auto) 0.1 Baso # (Auto) 0.1 Abs Immat Gran (auto) 0.04 H Absolute Neuts (auto) 6.0 Absolute Nucleated RBC 0.000 Nucleated RBC % 0.0 Sodium 137 Potassium 3.0 L Chloride 104 Carbon Dioxide 29 Anion Gap 4 BUN 6 L Creatinine 0.60 L Estim Creat Clear Calc 60 Estimated GFR > 60 Glucose 181 H POC Capillary Glucose 175 H 176 H Calcium 8.5 Total Bilirubin 0.7 AST 24 ALT 16 Alkaline Phosphatase 81 Total Protein 6.0 L Albumin 2.9 L Quality VTE Prophylaxis VTE prophylaxis: pharmacologic ordered
[2024-04-17 12:03] LABS: Glucose Point of Care 226 mg/dl (65-105)
--- NOTE | 2024-04-17 12:17 | PCSTNOTE ---
Please refer to the Bedside Swallow Evaluation in the EMR. Please note, silent aspiration cannot be ruled out at bedside.
[2024-04-17] MEDS: busPIRone HCL 5 MG TABLET FEED TUBE ×2 (12:25→16:37)
[2024-04-17] MEDS: lisinopriL 20 MG TABLET 40 MG FEED TUBE (12:26)
[2024-04-17] MEDS: MEMANTINE 5 MG TABLET FEED TUBE ×2 (12:26→20:41)
[2024-04-17] MEDS: amLODIPine BESYLATE 5 MG TABLET FEED TUBE (12:26)
[2024-04-17] MEDS: INSULIN ASPART (*BKC) 100 UNITS/ML SUB-Q (12:27)
[2024-04-17] MEDS: ASPIRIN 81 MG CHEWABLE TABLET FEED TUBE (12:27)
[2024-04-17] MEDS: ESCITALOPRAM OXALATE 10 MG TABLET FEED TUBE (12:27)
[2024-04-17 14:00] VITALS: BP 142/62; PULSE 78; RESP 16; TEMP 36.4; O2SAT 99
[2024-04-17] MEDS: ATORVASTATIN 40 MG TABLET 80 MG PO (16:37)
[2024-04-17 17:10] LABS: Glucose Point of Care 167 mg/dl (65-105)
[2024-04-17] MEDS: DONEPEZIL HCL 10 MG TABLET FEED TUBE (20:41)
[2024-04-17 21:06] VITALS: BP 146/89; PULSE 92; RESP 18; TEMP 36.3; O2SAT 99
[2024-04-18] MEDS: MEROPENEM 1 GM/NS 100 ML 1 GM/100 ML BAG IVPB ×3 (05:42→20:08)
[2024-04-18 05:53] LABS: Alanine Aminotransferase 22 U/L (6-35); Alkaline Phosphatase 91 U/L (38-126); Anion Gap 5 mmol/L (4-12); Aspartate Amino Transferase 30 U/L (14-36); Blood Urea Nitrogen 3 mg/dL (7-17); Calcium 8.4 mg/dL (8.4-10.2); Carbon Dioxide 31 mmol/L (22-30); Chloride 100 mmol/L (98-107); Estimated CRCL calculation 71 ml/min; Estimated Glomerular Filt Rate > 60; Glucose 168 mg/dL (65-110); Potassium 2.6 mmol/L (3.4-5.0); Sodium 136 mmol/L (137-145)
[2024-04-18 05:54] LABS: Basophils Absolute Auto 0.1 K/mm3 (0.0-0.1); Basophils Percent Auto 1.1 % (0.2-1.2); Eosinophils Absolute Auto 0.1 K/mm3 (0-0.3); Eosinophils Percent Auto 1.2 % (0-4.4); Hematocrit 29.2 % (37.0-47.0); Hemoglobin 10.7 g/dL (12.0-15.0); Immature Granulocyte Absolute 0.08 K/mm3 (0.00-0.031); Immature Granulocyte Percent A 0.8 % (0-0.5); Lymphocytes Absolute Auto 1.69 K/mm3 (0.9-3.2); Lymphocytes Percent Auto 17.1 % (18.3-44.2); Mean Corpuscular HGB Conc 36.6 g/dl (32-36); Mean Corpuscular Hemoglobin 31.1 pg (26-34); Mean Corpuscular Volume 84.9 fl (80-100); Monocytes Absolute Auto 0.7 K/mm3 (0.1-0.6); Monocytes Percent Auto 7.3 % (2.6-8.5); Neutrophils Absolute Auto 7.2 K/mm3 (1.3-6.7); Neutrophils Percent Auto 72.5 % (45.5-73.1); Platelet Count Result 318 k/mm3 (150-375); Red Blood Count 3.44 M/mm3 (4.2-5.4); Red Cell Distribution Width 12.1 % (11.5-14.5); White Blood Count 9.9 K/mm3 (4.5-10.0)
[2024-04-18 05:56] LABS: Glucose Point of Care 159 mg/dl (65-105)
[2024-04-18 06:00] VITALS: BP 152/88; PULSE 80; RESP 20; TEMP 36.3; O2SAT 100
[2024-04-18] MEDS: POTASSIUM CHLORIDE INJ 40 MEQ in SODIUM CHLORIDE 0.9% IV 500 ML 130 MEQ IVPB ×2 (06:30→09:10)
[2024-04-18 07:45] VITALS: RESP 20; O2SAT 100
--- NOTE | 2024-04-18 08:41 | P.PNIM_ITS ---
Progress Note: A&P Assessment and Plan (1) AMS (altered mental status): Qualifiers: Altered mental status type: disorientation Qualified Code(s): R41.0 - Disorientation, unspecified Code(s): R41.82 - Altered mental status, unspecified Status: Acute Assessment and Plan: Spoke with patients RN Kimberli who states that prior to recent hospitalization to [facility] she was ambulatory and very combative (hitting/kicking/biting patients and staff) at the facility. She was placed on the behavioral side of [facility] and started on a new psych medication. On Risperidone which was filled on 04/08 per chart review and a large dose of seroquel 25 mg TID. Will discontinue the risperidone as per uptodate this has increased mortality risks in elderly patients with severe dementia and will decrease the frequency of the seroquel to HS. - Likely delirium secondary to acute infection complicated by dementia vs polypharmacy - Patient is on a fairly large dose of Seroquel 25 mg TID, decreased to HS. Started on Risperidone this month, discontinued at this time. - Head CT: No acute intracranial findings - MRI brain ordered given that patient has AMS (baseline AO 0-1) however she remains somnolent and is not moving extremities. Unable to perform compete neuro assessment given her inability to follow commands. - UA: Cloudy appearance with 2+ protein, 1+ glucose, trace ketones, non hemolyzed blood, positive nitrates, 2+ leukocytes, > 100 WBC, 4+ bacteria - UC obtained on 04/12: Ecoli ESBL on meropenem 04/14 - ABG 04/15: normal pH and pCO2 - Ammonia level < 9 - Patient has been 4 days without food, we will go ahead and place a small bore feeding tube for nutritional purposes, hydration, medication administration. Tube placement: Successful fluoroscopy-guided Dobbhoff feeding tube placement with distal tip in the fourth portion of the duodenum. [employer] Director consulted, remains on Jevity 1.5 at 40 ml and tolerating it well - Neuro consulted EEG ordered 04/17- no NG/Dobhoff access -will do swallow bedside and if needed modified barium - if able to swallow- ok to resume po intake and PO meds - continue to monitor for aspiration -hob 30 degrees or more when eating- ideally up to the chair - sitter at bedside if needed - if continue to pull on lines- will consider mittens 04/18- passed swallow eval- was cleared to eat neurology notes reviewed: She is on Aricept 10 mg a day and memantine 5 mg twice a day the dose of the later can be increased to 10 mg twice a day. Patient is also on Lexapro 10 mg a day. She may require psychotropic medications if behavior becomes a problem but for now she seems to be more sedated. She is already in institution for patients with memory loss. - will increase memantine to 10 mg bid per neurology recommendations (2) Acute UTI: Code(s): N39.0 - Urinary tract infection, site not specified Status: Acute Assessment and Plan: - UA: Cloudy appearance with 2+ protein, 1+ glucose, trace ketones, non hemolyzed blood, positive nitrates, 2+ leukocytes, > 100 WBC, 4+ bacteria - UC obtained on 04/12: Ecoli ESBL - previous micro reviewed 03/05/24: klebsiella pneumoniae pansensitive - started on Cipro on 04/13 (Rocephin not started given patients anaphylactic allergy to penicillins), transitioned to meropenem on 04/14 Spoke with pharmacy Keely prior to starting meropenem and she states there is low cross reactivity with penicillin allergies including those of anaphylaxis. Informed patients RN that the antibiotic had been changed and to closely monitor her for the first 24 hours since receiving the medication. (3) Dementia: Code(s): F03.90 - Unspecified dementia, unspecified severity, without behavioral disturbance, psychotic disturbance, mood disturbance, and anxiety Status: Acute Assessment and Plan: Continue home medications. - Aricept 10 mg daily, Lexapro 10 mg daily, Namenda 5 mg daily (increased to BID) - Seroquel 25 mg TID, decreased to HS as possible cause of somnolence - Risperdal discontinued - Neurology consulted, she is on Aricept 10 mg a day and memantine 5 mg twice a day the dose of the later can be increased to 10 mg twice a day. - Monitor 04/18- - will increase memantine to 10 mg bid per neurology recommendations (4) HTN (hypertension), benign: Code(s): I10 - Essential (primary) hypertension Status: Acute Assessment and Plan: Chronic, well controlled on home medications - Amlodipine 5 mg daily - Lisinopril 40 mg daily - Monitor (5) Diabetes mellitus: Code(s): E11.9 - Type 2 diabetes mellitus without complications Status: Acute Assessment and Plan: - hypoglycemia protocol - POC blood glucose ACHS - home medication - metformin 1000 mg daily - correct regimen ordered - low dose TIDWM - A1C 7.3 (6) Hypokalemia: Code(s): E87.6 - Hypokalemia Status: Acute Assessment and Plan: -will order IV K, and order daily replacement- monitor closely Time Spent With Patient Time with patient: Greater than 35 minutes Subjective Date/time seen: 04/18/24 08:41 Interval history: 68 year old female with past medical history dementia, hypertension, and diabetes presents to the hospital from [facility] with altered mental status. Per [facility], prior to patients recent hospitalization to [facility] she was ambulatory and very combative (hitting/kicking/biting patients and staff) at [facility]. She was placed on the behavioral side of [facility] and started on a new psych medication. THis medication appears to be Risperidone which was filled on 04/08 per chart review and a large dose of seroquel 25 mg TID. Will discontinue the risperidone as per uptodate this has increased mortality risks in elderly patients with severe dementia and will decrease the frequency of the seroquel to HS. Patient is pleasant lying in bed with sitter at bedside. She is alert, making eye contact, moving all extremities and talking. Patient had dobhof placed yesterday and remains on Jevity 1.5 at 40 ml, tolerating it well. Call made at 1500 to patients , Jef and voicemail left with call back number. 04/17- was reported that pt pulled dobhoff off overnight. will try to call again today to discuss plan of care - [phone]. Called and discussed plan of care- Jef is oppose to comfort/hospice care. Will be coming over in 30-60 min- will discuss in more details. Pt's and sister wants to do full treatment- whatever it takes. Bedside swallow eval first and if failed-will decide if peg tube appropriate. 04/18- pt is seen and examined. She passed her swallow eval and was cleared to eat- would help feeding pt if needed. Pt is frigidly but re directable. Review of Systems Review of Systems: ROS unobtainable: Yes unobtainable due to mental status Exam Narrative: General: frail female who looks older than stated age in no acute respiratory distress who is chronically ill appearing, lying semi recumbent in bed with sitter at bedside HEENT: Normocephalic. Atraumatic. Sclera clear and anicteric. No facial asymmetry. Dophoff in place. Chest: Lungs are clear to auscultation bilaterally. No wheezes or crackles. CV: Heart was regular rate and rhythm. S1-S2. No murmurs, gallops, or rubs. Abd: Abdomen was soft. Nontender. Nondistended. Positive bowel sounds. No organomegaly or masses. Ext: No clubbing, cyanosis, or edema. 2+ DP pulses bilaterally. Neuro: Patient is alert and active today, making eye contact. Moving all extremities. Speaking in sentences. Const: General: comfortable, no acute distress, well developed, ill appearing acutely, lethargic, patient obtunded and average body habitus Nutritional Appearance: average body habitus Orientation/consciousness: patient obtunded and lethargic HENMT: Head: normal to inspection, normocephalic and atraumatic Ears: hearing grossly normal bilaterally Face/Nose/Sinus: normal facial exam Face and sinus: normal facial exam Eyes: General: appearance normal, both eyes and all related structures Pupils: Equal, round and reactive pupils present EOM: EOMs intact bilaterally Neck: Neck: full ROM, no lymphadenopathy and no JVD Thyroid: thyroid normal Lymphatic: no lymphadenopathy noted Resp: Effort & Inspection: normal respiratory effort and able to speak in complete sentences Auscultation: clear to auscultation bilaterally Cardio: Jugular venous distension: no JVD Rate: regular rate Rhythm: regular rhythm Heart sounds: S1 normal heart sound present and S2 normal heart sound present : General: Yes deferred Skin: Rashes: no rashes Wounds: no wounds Neuro: General: moves all extremities, no focal motor deficits, patient obtunded and Unable to assess gait Cranial nerves: Yes CN's II-XII intact bilaterally and Yes Equal, round and reactive pupils present Cognition (Neuro): abnormal cognition (lethargy/obtundation) Speech: normal speech Gait exam (Neuro): Unable to assess gait Motor exam (neuro): 5/5 motor strength present throughout Extrem: General: normal to inspection, full ROM, no joint enlargement and no pedal edema Objective Data Vital Signs Vital Signs: Vital Signs - 24 hr 04/17/24 14:00 04/17/24 21:06 04/17/24 20:00 Temperature 97.5 F L 97.3 F L Pulse Rate 78 92 Respiratory Rate 16 18 Blood Pressure 142/62 H 146/89 H Pulse Oximetry 99 99 Oxygen Delivery Room Air 04/18/24 06:00 Temperature 97.4 F L Pulse Rate 80 Respiratory Rate 20 Blood Pressure 152/88 H Pulse Oximetry 100 Oxygen Delivery Intake/Output Intake/Output: Intake & Output 04/15/24 04/16/24 04/17/24 04/18/24 23:59 23:59 23:59 23:59 Intake Total 4908 072 1210 440 Output Total 200 851 400 Balance 1620 -551 1085 440 Meds/Results Medications: Active Medications Generic Name Dose Route Start Last Admin Trade Name Freq PRN Reason Stop Dose Admin Amlodipine Besylate 5 mg 04/16/24 09:00 04/17/24 12:26 Amlodipine Besylate 5 Mg Tablet FEED TUBE 5 mg DAILY JOAN Administration Aspirin 81 mg 04/16/24 09:00 04/17/24 12:27 Aspirin 81 Mg Chewable Tablet FEED TUBE 81 mg DAILY JOAN Administration Atorvastatin Calcium 80 mg 04/13/24 18:00 04/17/24 16:37 Atorvastatin 40 Mg Tablet PO 80 mg QPM JOAN Administration Buspirone HCl 5 mg 04/15/24 17:00 04/17/24 16:37 Buspirone Hcl 5 Mg Tablet FEED TUBE 5 mg BID JOAN Administration Dextrose 12.5 gm 04/13/24 08:33 Dextrose 50% 25 Gm/50 Ml Syringe IV PUSH PRN PRN Hypoglycemia Protocol Donepezil HCl 10 mg 04/15/24 21:00 04/17/24 20:41 Donepezil Hcl 10 Mg Tablet FEED TUBE 10 mg HS JOAN Administration Enoxaparin Sodium 40 mg 04/13/24 09:00 04/17/24 12:39 Enoxaparin 40 Mg/0.4 Ml Syringe SUB-Q Not Given DAILY JOAN Escitalopram Oxalate 10 mg 04/16/24 09:00 04/17/24 12:27 Escitalopram Oxalate 10 Mg Tablet FEED TUBE 10 mg DAILY JOAN Administration Glucagon 1 mg 04/13/24 08:33 Glucagon For Inj 1 Mg Vial IM PRN PRN Hypoglycemia Protocol Glucose 15 gm 04/13/24 08:33 Glucose Oral Gel 15 Gm Of Glucse In 37.5 Gm Tube PO PRN PRN Hypoglycemia Protocol Hydralazine HCl 10 mg 04/15/24 14:11 Hydralazine Hcl 20 Mg/Ml Vial IV PUSH Q8H PRN Blood Pressure - High Dextrose 1,000 mls @ 100 mls/hr 04/13/24 08:33 Dextrose 5% 1,000 Ml IVPB PRN PRN Hypoglycemia Protocol Meropenem 1 gm in 100 mls @ 200 mls/hr 04/14/24 14:00 04/18/24 05:42 IVPB 04/21/24 06:29 200 mls/hr Q8H JOAN Administration Dextrose/Sodium Chloride 1,000 mls @ 45 mls/hr 04/16/24 23:00 04/17/24 23:18 Dextrose 5% Sodium Chloride 0.45% IV CONT 45 mls/hr .[id number] JOAN Administration Potassium Chloride 40 meq/ 520 mls @ 130 mls/hr 04/18/24 05:57 04/18/24 06:30 Sodium Chloride IVPB 04/18/24 09:56 130 mls/hr ONCE ONE Administration Insulin Aspart 2 - 5 units 04/15/24 18:00 04/18/24 06:00 Insulin Aspart (*Bkc) 100 Units/Ml SUB-Q Not Given Q6HR JOAN Protocol Lisinopril 40 mg 04/16/24 09:00 04/17/24 12:26 Lisinopril 20 Mg Tablet FEED TUBE 40 mg DAILY JOAN Administration Memantine 5 mg 04/16/24 09:00 04/17/24 20:41 Memantine 5 Mg Tablet FEED TUBE 5 mg Q12HR JOAN Administration Quetiapine Fumarate 25 mg 04/13/24 21:00 04/14/24 20:16 Quetiapine Fumarate 25 Mg Tablet PO Not Given HS JOAN Trazodone HCl 50 mg 04/13/24 06:24 Trazodone Hcl 50 Mg Tablet PO HS PRN Sleep Radiology Results: ITS Impressions Head CT 04/12/24 20:14 IMPRESSION: No acute intracranial findings. Brain MRI 04/13/24 14:07 IMPRESSION: 1. No evidence of acute infarct or hemorrhage is seen. 2. Brain atrophy with deep white matter ischemic changes. Abdomen X-Ray 04/16/24 18:57 IMPRESSION: Feeding tube projecting over the left upper quadrant for which further characterization of its location is limited without contrast injection. Labs Labs: Laboratory Results - last 24 hr 04/17/24 04/17/24 04/18/24 11:57 17:01 05:32 WBC 9.9 RBC 3.44 L Hgb 10.7 L Hct 29.2 L MCV 84.9 MCH 31.1 MCHC 36.6 H RDW 12.1 Plt Count 318 MPV 10.0 Immature Gran % (Auto) 0.8 H Neut % (Auto) 72.5 Lymph % (Auto) 17.1 L Door % (Auto) 7.3 Eos % (Auto) 1.2 Baso % (Auto) 1.1 Lymph # (Auto) 1.69 Door # (Auto) 0.7 H Eos # (Auto) 0.1 Baso # (Auto) 0.1 Abs Immat Gran (auto) 0.08 H Absolute Neuts (auto) 7.2 H Absolute Nucleated RBC 0.000 Nucleated RBC % 0.0 Sodium 136 L Potassium 2.6 L* Chloride 100 Carbon Dioxide 31 H Anion Gap 5 BUN 3 L Creatinine 0.50 L Estim Creat Clear Calc 71 Estimated GFR > 60 Glucose 168 H POC Capillary Glucose 226 H 167 H Calcium 8.4 Total Bilirubin 1.0 AST 30 ALT 22 Alkaline Phosphatase 91 Total Protein 6.0 L Albumin 3.0 L 04/18/24 05:53 WBC RBC Hgb Hct MCV MCH MCHC RDW Plt Count MPV Immature Gran % (Auto) Neut % (Auto) Lymph % (Auto) Door % (Auto) Eos % (Auto) Baso % (Auto) Lymph # (Auto) Door # (Auto) Eos # (Auto) Baso # (Auto) Abs Immat Gran (auto) Absolute Neuts (auto) Absolute Nucleated RBC Nucleated RBC % Sodium Potassium Chloride Carbon Dioxide Anion Gap BUN Creatinine Estim Creat Clear Calc Estimated GFR Glucose POC Capillary Glucose 159 H Calcium Total Bilirubin AST ALT Alkaline Phosphatase Total Protein Albumin Quality VTE Prophylaxis VTE prophylaxis: pharmacologic ordered
[2024-04-18] MEDS: busPIRone HCL 5 MG TABLET FEED TUBE (09:14)
[2024-04-18] MEDS: ENOXAPARIN 40 MG/0.4 ML SYRINGE SUB-Q (09:14)
[2024-04-18] MEDS: ASPIRIN 81 MG CHEWABLE TABLET FEED TUBE (09:14)
[2024-04-18] MEDS: lisinopriL 20 MG TABLET 40 MG FEED TUBE (09:14)
[2024-04-18] MEDS: ESCITALOPRAM OXALATE 10 MG TABLET FEED TUBE (09:14)
[2024-04-18] MEDS: amLODIPine BESYLATE 5 MG TABLET FEED TUBE (09:14)
[2024-04-18] MEDS: MEMANTINE 5 MG TABLET FEED TUBE (09:14)
[2024-04-18] MEDS: POTASSIUM CHLORIDE 20 MEQ PACKET (FOR LIQUID) 40 MEQ PO (09:17)
[2024-04-18 11:29] LABS: Glucose Point of Care 201 mg/dl (65-105)
[2024-04-18] MEDS: INSULIN ASPART (*BKC) 100 UNITS/ML SUB-Q (11:31)
[2024-04-18 14:50] VITALS: BP 149/79; PULSE 96; RESP 18; TEMP 36.5; O2SAT 100
[2024-04-18 15:54] LABS: Potassium 4.3 mmol/L (3.4-5.0)
[2024-04-18 16:48] LABS: Glucose Point of Care 180 mg/dl (65-105)
[2024-04-18] MEDS: busPIRone HCL 5 MG TABLET BY MOUTH (17:04)
[2024-04-18] MEDS: ATORVASTATIN 40 MG TABLET 80 MG PO (17:04)
[2024-04-18] MEDS: MEMANTINE 10 MG TABLET BY MOUTH (20:07)
[2024-04-18 20:08] LABS: Glucose Point of Care 170 mg/dl (65-105)
[2024-04-18] MEDS: DONEPEZIL HCL 10 MG TABLET BY MOUTH (20:08)
[2024-04-18 21:44] VITALS: BP 187/73; PULSE 118; RESP 20; TEMP 36.2; O2SAT 100
[2024-04-18] MEDS: hydrALAZINE HCL 20 MG/ML VIAL 10 MG IV PUSH (21:46)
[2024-04-19] MEDS: MEROPENEM 1 GM/NS 100 ML 1 GM/100 ML BAG IVPB ×3 (05:51→20:10)
[2024-04-19 06:01] VITALS: BP 140/74; PULSE 94; RESP 20; TEMP 36.2; O2SAT 94
[2024-04-19 06:33] LABS: Basophils Absolute Auto 0.1 K/mm3 (0.0-0.1); Basophils Percent Auto 0.5 % (0.2-1.2); Eosinophils Absolute Auto 0.2 K/mm3 (0-0.3); Hematocrit 30.3 % (37.0-47.0); Hemoglobin 10.6 g/dL (12.0-15.0); Immature Granulocyte Percent A 0.6 % (0-0.5); Lymphocytes Absolute Auto 1.96 K/mm3 (0.9-3.2); Lymphocytes Percent Auto 11.5 % (18.3-44.2); Mean Corpuscular Hemoglobin 30.2 pg (26-34); Mean Corpuscular Volume 86.3 fl (80-100); Mean Platelet Volume 10.3 fl (7.4-10.4); Monocytes Percent Auto 5.6 % (2.6-8.5); Neutrophils Absolute Auto 13.8 K/mm3 (1.3-6.7); Neutrophils Percent Auto 80.8 % (45.5-73.1); Platelet Count Result 365 k/mm3 (150-375); Red Blood Count 3.51 M/mm3 (4.2-5.4); Red Cell Distribution Width 12.5 % (11.5-14.5); White Blood Count 17.1 K/mm3 (4.5-10.0)
[2024-04-19 06:42] LABS: Alanine Aminotransferase 28 U/L (6-35); Albumin Level 3.2 g/dL (3.5-5.1); Alkaline Phosphatase 95 U/L (38-126); Anion Gap 5 mmol/L (4-12); Aspartate Amino Transferase 35 U/L (14-36); Bilirubin,Total 0.8 mg/dL (0.2-1.3); Blood Urea Nitrogen 5 mg/dL (7-17); Calcium 8.9 mg/dL (8.4-10.2); Carbon Dioxide 28 mmol/L (22-30); Chloride 104 mmol/L (98-107); Estimated CRCL calculation 60 ml/min; Estimated Glomerular Filt Rate > 60; Glucose 148 mg/dL (65-110); Potassium 3.9 mmol/L (3.4-5.0); Sodium 137 mmol/L (137-145)
--- NOTE | 2024-04-19 07:37 | PM.IMPN ---
Progress Note: A&P Assessment and Plan (1) AMS (altered mental status): Qualifiers: Altered mental status type: disorientation Qualified Code(s): R41.0 - Disorientation, unspecified Code(s): R41.82 - Altered mental status, unspecified Status: Acute Assessment and Plan: Spoke with patients RN Kimberli who states that prior to recent hospitalization to [facility] she was ambulatory and very combative (hitting/kicking/biting patients and staff) at the facility. She was placed on the behavioral side of [facility] and started on a new psych medication. On Risperidone which was filled on 04/08 per chart review and a large dose of seroquel 25 mg TID. Will discontinue the risperidone as per uptodate this has increased mortality risks in elderly patients with severe dementia and will decrease the frequency of the seroquel to HS. - Likely delirium secondary to acute infection complicated by dementia vs polypharmacy - Patient is on a fairly large dose of Seroquel 25 mg TID, decreased to HS. Started on Risperidone this month, discontinued at this time. - Head CT: No acute intracranial findings - MRI brain ordered given that patient has AMS (baseline AO 0-1) however she remains somnolent and is not moving extremities. Unable to perform compete neuro assessment given her inability to follow commands. - UA: Cloudy appearance with 2+ protein, 1+ glucose, trace ketones, non hemolyzed blood, positive nitrates, 2+ leukocytes, > 100 WBC, 4+ bacteria - UC obtained on 04/12: Ecoli ESBL on meropenem 04/14 - ABG 04/15: normal pH and pCO2 - Ammonia level < 9 - Patient has been 4 days without food, we will go ahead and place a small bore feeding tube for nutritional purposes, hydration, medication administration. Tube placement: Successful fluoroscopy-guided Dobbhoff feeding tube placement with distal tip in the fourth portion of the duodenum. Construction Sales Representative consulted, remains on Jevity 1.5 at 40 ml and tolerating it well - Neuro consulted EEG ordered 04/17- no NG/Dobhoff access -will do swallow bedside and if needed modified barium - if able to swallow- ok to resume po intake and PO meds - continue to monitor for aspiration -hob 30 degrees or more when eating- ideally up to the chair - sitter at bedside if needed - if continue to pull on lines- will consider mittens 04/18- passed swallow eval- was cleared to eat neurology notes reviewed: She is on Aricept 10 mg a day and memantine 5 mg twice a day the dose of the later can be increased to 10 mg twice a day. Patient is also on Lexapro 10 mg a day. She may require psychotropic medications if behavior becomes a problem but for now she seems to be more sedated. She is already in institution for patients with memory loss. - will increase memantine to 10 mg bid per neurology recommendations. 04/19- alert but disoriented. still restless (2) Acute UTI: Code(s): N39.0 - Urinary tract infection, site not specified Status: Acute Assessment and Plan: - UA: Cloudy appearance with 2+ protein, 1+ glucose, trace ketones, non hemolyzed blood, positive nitrates, 2+ leukocytes, > 100 WBC, 4+ bacteria - UC obtained on 04/12: Ecoli ESBL - previous micro reviewed 03/05/24: klebsiella pneumoniae pansensitive - started on Cipro on 04/13 (Rocephin not started given patients anaphylactic allergy to penicillins), transitioned to meropenem on 04/14 Spoke with pharmacy Keely prior to starting meropenem and she states there is low cross reactivity with penicillin allergies including those of anaphylaxis. Informed patients RN that the antibiotic had been changed and to closely monitor her for the first 24 hours since receiving the medication. - on meropenem- end date 04/21 (3) Dementia: Code(s): F03.90 - Unspecified dementia, unspecified severity, without behavioral disturbance, psychotic disturbance, mood disturbance, and anxiety Status: Acute Assessment and Plan: Continue home medications. - Aricept 10 mg daily, Lexapro 10 mg daily, Namenda 5 mg daily (increased to BID) - Seroquel 25 mg TID, decreased to HS as possible cause of somnolence - Risperdal discontinued - Neurology consulted, she is on Aricept 10 mg a day and memantine 5 mg twice a day the dose of the later can be increased to 10 mg twice a day. - Monitor 04/18- - will increase memantine to 10 mg bid per neurology recommendations (4) HTN (hypertension), benign: Code(s): I10 - Essential (primary) hypertension Status: Acute Assessment and Plan: Chronic, well controlled on home medications - Amlodipine 5 mg daily - Lisinopril 40 mg daily - Monitor (5) Diabetes mellitus: Code(s): E11.9 - Type 2 diabetes mellitus without complications Status: Acute Assessment and Plan: - hypoglycemia protocol - POC blood glucose ACHS - home medication - metformin 1000 mg daily - correct regimen ordered - low dose TIDWM - A1C 7.3 (6) Hypokalemia: Code(s): E87.6 - Hypokalemia Status: Acute Assessment and Plan: -will order IV K, and order daily replacement- monitor closely - repeat was 4.3 last night, 3.9 this am- will continue with oral replacement Time Spent With Patient Time with patient: Greater than 35 minutes Subjective Date/time seen: 04/19/24 07:37 Interval history: 68 year old female with past medical history dementia, hypertension, and diabetes presents to the hospital from care home with altered mental status. Per [facility], prior to patients recent hospitalization to [facility] she was ambulatory and very combative (hitting/kicking/biting patients and staff) at [facility]. She was placed on the behavioral side of [facility] and started on a new psych medication. THis medication appears to be Risperidone which was filled on 04/08 per chart review and a large dose of seroquel 25 mg TID. Will discontinue the risperidone as per uptodate this has increased mortality risks in elderly patients with severe dementia and will decrease the frequency of the seroquel to HS. Patient is pleasant lying in bed with sitter at bedside. She is alert, making eye contact, moving all extremities and talking. Patient had dobhof placed yesterday and remains on Jevity 1.5 at 40 ml, tolerating it well. Call made at 1500 to patients , Jef and voicemail left with call back number. 04/17- was reported that pt pulled dobhoff off overnight. will try to call again today to discuss plan of care - [phone]. Called and discussed plan of care- Jef is oppose to comfort/hospice care. Will be coming over in 30-60 min- will discuss in more details. Pt's and sister wants to do full treatment- whatever it takes. Bedside swallow eval first and if failed-will decide if peg tube appropriate. 04/18- pt is seen and examined. She passed her swallow eval and was cleared to eat- would help feeding pt if needed. Pt is frigidly but re directable. 04/19- pt is seen and examined. K was replaced yesterday- repeat was 4.3 and 3.9 this am- will continue with PO replacement Review of Systems Review of Systems: ROS unobtainable: Yes unobtainable due to mental status Exam Narrative: General: frail female who looks older than stated age in no acute respiratory distress who is chronically ill appearing, lying in bed with sitter at bedside HEENT: Normocephalic. Atraumatic. Sclera clear and anicteric. No facial asymmetry. Dophoff in place. Chest: Lungs are clear to auscultation bilaterally. No wheezes or crackles. CV: Heart was regular rate and rhythm. S1-S2. No murmurs, gallops, or rubs. Abd: Abdomen was soft. Nontender. Nondistended. Positive bowel sounds. No organomegaly or masses. Ext: No clubbing, cyanosis, or edema. 2+ DP pulses bilaterally. Neuro: Patient is alert and active today, making eye contact. Moving all extremities. Speaking in sentences. but disoriented Const: General: comfortable, no acute distress, well developed, ill appearing acutely, lethargic, patient obtunded and average body habitus Nutritional Appearance: average body habitus Orientation/consciousness: patient obtunded and lethargic HENMT: Head: normal to inspection, normocephalic and atraumatic Ears: hearing grossly normal bilaterally Face/Nose/Sinus: normal facial exam Face and sinus: normal facial exam Eyes: General: appearance normal, both eyes and all related structures Pupils: Equal, round and reactive pupils present EOM: EOMs intact bilaterally Neck: Neck: full ROM, no lymphadenopathy and no JVD Thyroid: thyroid normal Lymphatic: no lymphadenopathy noted Resp: Effort & Inspection: normal respiratory effort and able to speak in complete sentences Auscultation: clear to auscultation bilaterally Cardio: Jugular venous distension: no JVD Rate: regular rate Rhythm: regular rhythm Heart sounds: S1 normal heart sound present and S2 normal heart sound present : General: Yes deferred Skin: Rashes: no rashes Wounds: no wounds Neuro: General: moves all extremities, no focal motor deficits, patient obtunded and Unable to assess gait Cranial nerves: Yes CN's II-XII intact bilaterally and Yes Equal, round and reactive pupils present Cognition (Neuro): abnormal cognition (lethargy/obtundation) Speech: normal speech Gait exam (Neuro): Unable to assess gait Motor exam (neuro): 5/5 motor strength present throughout Extrem: General: normal to inspection, full ROM, no joint enlargement and no pedal edema Objective Data Vital Signs Vital Signs: Vital Signs - 24 hr 04/18/24 07:45 04/18/24 14:50 04/18/24 15:22 Temperature 97.7 F Pulse Rate 96 Respiratory Rate 20 18 Blood Pressure 149/79 H Pulse Oximetry 100 100 Oxygen Delivery Room Air Room Air 04/18/24 20:00 04/18/24 21:44 04/19/24 06:01 Temperature 97.1 F L 97.2 F L Pulse Rate 118 H 94 Respiratory Rate 20 20 Blood Pressure 187/73 H 140/74 Pulse Oximetry 100 94 Oxygen Delivery Room Air Intake/Output Intake/Output: Intake & Output 04/16/24 04/17/24 04/18/24 04/19/24 23:59 23:59 23:59 23:59 Intake Total 300 1485 2726.5 800 Output Total 851 400 Balance -551 1085 2726.5 800 Meds/Results Medications: Active Medications Generic Name Dose Route Start Last Admin Trade Name Freq PRN Reason Stop Dose Admin Amlodipine Besylate 5 mg 04/19/24 09:00 Amlodipine Besylate 5 Mg Tablet BY MOUTH DAILY [facility] Aspirin 81 mg 04/19/24 09:00 Aspirin 81 Mg Chewable Tablet BY MOUTH DAILY JOAN Atorvastatin Calcium 80 mg 04/13/24 18:00 04/18/24 17:04 Atorvastatin 40 Mg Tablet PO 80 mg QPM JOAN Administration Buspirone HCl 5 mg 04/18/24 17:00 04/18/24 17:04 Buspirone Hcl 5 Mg Tablet BY MOUTH 5 mg BID JOAN Administration Dextrose 12.5 gm 04/13/24 08:33 Dextrose 50% 25 Gm/50 Ml Syringe IV PUSH PRN PRN Hypoglycemia Protocol Dextrose 12.5 gm 04/18/24 19:37 Dextrose 50% 25 Gm/50 Ml Syringe IV PUSH PRN PRN Hypoglycemia Protocol Donepezil HCl 10 mg 04/18/24 21:00 04/18/24 20:08 Donepezil Hcl 10 Mg Tablet BY MOUTH 10 mg HS JOAN Administration Enoxaparin Sodium 40 mg 04/13/24 09:00 04/18/24 09:14 Enoxaparin 40 Mg/0.4 Ml Syringe SUB-Q 40 mg DAILY JOAN Administration Escitalopram Oxalate 10 mg 04/19/24 09:00 Escitalopram Oxalate 10 Mg Tablet BY MOUTH DAILY JOAN Glucagon 1 mg 04/13/24 08:33 Glucagon For Inj 1 Mg Vial IM PRN PRN Hypoglycemia Protocol Glucagon 1 mg 04/18/24 19:37 Glucagon For Inj 1 Mg Vial IM PRN PRN Hypoglycemia Protocol Glucose 15 gm 04/13/24 08:33 Glucose Oral Gel 15 Gm Of Glucse In 37.5 Gm Tube PO PRN PRN Hypoglycemia Protocol Glucose 15 gm 04/18/24 19:37 Glucose Oral Gel 15 Gm Of Glucse In 37.5 Gm Tube PO PRN PRN Hypoglycemia Protocol Hydralazine HCl 10 mg 04/15/24 14:11 04/18/24 21:46 Hydralazine Hcl 20 Mg/Ml Vial IV PUSH 10 mg Q8H PRN Administration Blood Pressure - High Dextrose 1,000 mls @ 100 mls/hr 04/13/24 08:33 Dextrose 5% 1,000 Ml IVPB PRN PRN Hypoglycemia Protocol Meropenem 1 gm in 100 mls @ 200 mls/hr 04/14/24 14:00 04/19/24 06:21 IVPB 04/21/24 06:29 Infused Q8H JOAN Infusion Dextrose 1,000 mls @ 100 mls/hr 04/18/24 19:37 Dextrose 5% 1,000 Ml IVPB PRN PRN Hypoglycemia Protocol Insulin Aspart 2 - 5 units 04/19/24 08:00 Insulin Aspart (*Bkc) 100 Units/Ml SUB-Q TIDWM JOAN Protocol Lisinopril 40 mg 04/19/24 09:00 Lisinopril 20 Mg Tablet BY MOUTH DAILY JOAN Memantine 10 mg 04/18/24 21:00 04/18/24 20:07 Memantine 10 Mg Tablet BY MOUTH 10 mg Q12HR JOAN Administration Potassium Chloride 40 meq 04/18/24 09:00 04/18/24 09:17 Potassium Chloride 20 Meq Packet (For Liquid) PO 40 meq DAILY JOAN Administration Quetiapine Fumarate 25 mg 04/13/24 21:00 04/14/24 20:16 Quetiapine Fumarate 25 Mg Tablet PO Not Given HS JOAN Trazodone HCl 50 mg 04/13/24 06:24 Trazodone Hcl 50 Mg Tablet PO HS PRN Sleep Radiology Results: ITS Impressions Head CT 04/12/24 20:14 IMPRESSION: No acute intracranial findings. Brain MRI 04/13/24 14:07 IMPRESSION: 1. No evidence of acute infarct or hemorrhage is seen. 2. Brain atrophy with deep white matter ischemic changes. Abdomen X-Ray 04/16/24 18:57 IMPRESSION: Feeding tube projecting over the left upper quadrant for which further characterization of its location is limited without contrast injection. Labs Labs: Laboratory Results - last 24 hr 04/18/24 04/18/24 04/18/24 11:26 15:43 16:45 WBC RBC Hgb Hct MCV MCH MCHC RDW Plt Count MPV Immature Gran % (Auto) Neut % (Auto) Lymph % (Auto) Cecil % (Auto) Eos % (Auto) Baso % (Auto) Lymph # (Auto) Cecil # (Auto) Eos # (Auto) Baso # (Auto) Abs Immat Gran (auto) Absolute Neuts (auto) Absolute Nucleated RBC Nucleated RBC % Sodium Potassium 4.3 Chloride Carbon Dioxide Anion Gap BUN Creatinine Estim Creat Clear Calc Estimated GFR Glucose POC Capillary Glucose 201 H 180 H Calcium Total Bilirubin AST ALT Alkaline Phosphatase Total Protein Albumin 04/18/24 04/19/24 20:05 05:40 WBC 17.1 H RBC 3.51 L Hgb 10.6 L Hct 30.3 L MCV 86.3 MCH 30.2 MCHC 35.0 RDW 12.5 Plt Count 365 MPV 10.3 Immature Gran % (Auto) 0.6 H Neut % (Auto) 80.8 H Lymph % (Auto) 11.5 L Cecil % (Auto) 5.6 Eos % (Auto) 1.0 Baso % (Auto) 0.5 Lymph # (Auto) 1.96 Cecil # (Auto) 1.0 H Eos # (Auto) 0.2 Baso # (Auto) 0.1 Abs Immat Gran (auto) 0.10 H Absolute Neuts (auto) 13.8 H Absolute Nucleated RBC 0.000 Nucleated RBC % 0.0 Sodium 137 Potassium 3.9 Chloride 104 Carbon Dioxide 28 Anion Gap 5 BUN 5 L Creatinine 0.60 L Estim Creat Clear Calc 60 Estimated GFR > 60 Glucose 148 H POC Capillary Glucose 170 H Calcium 8.9 Total Bilirubin 0.8 AST 35 ALT 28 Alkaline Phosphatase 95 Total Protein 6.0 L Albumin 3.2 L Quality VTE Prophylaxis VTE prophylaxis: pharmacologic ordered
[2024-04-19 07:55] LABS: Glucose Point of Care 160 mg/dl (65-105)
[2024-04-19] MEDS: ASPIRIN 81 MG CHEWABLE TABLET BY MOUTH (09:08)
[2024-04-19] MEDS: busPIRone HCL 5 MG TABLET BY MOUTH ×2 (09:09→17:19)
[2024-04-19] MEDS: lisinopriL 20 MG TABLET 40 MG BY MOUTH (09:09)
[2024-04-19] MEDS: amLODIPine BESYLATE 5 MG TABLET BY MOUTH (09:09)
[2024-04-19] MEDS: ENOXAPARIN 40 MG/0.4 ML SYRINGE SUB-Q (09:10)
[2024-04-19] MEDS: ESCITALOPRAM OXALATE 10 MG TABLET BY MOUTH (09:10)
[2024-04-19] MEDS: MEMANTINE 10 MG TABLET BY MOUTH ×2 (09:10→20:10)
[2024-04-19] MEDS: POTASSIUM CHLORIDE 20 MEQ PACKET (FOR LIQUID) 40 MEQ PO (09:11)
--- NOTE | 2024-04-19 12:26 | PCNFU ---
Nutrition Follow-Up Complete: Severe protein calorie malnutrition related to dementia, loss of appetite, inability to meet estimated needs PO as evidenced by weight loss -10%/1 month; intakes <75% needs >1 month. Goal:Meet estimated nutrition needs - Progressing. Eating 25-100% on diabetic diet. Continue with same goal Pt current nutrition is Diabetic consistent carb diet with Gluerna BID for additional 220 kcal and 10 g protein. Nutrition recommendation: No new nutrition recommendations. Continue with current nutrition care plan and orders Last recorded weight is 52.7 kg. Bowel Motility: +2 BMs 04/18/24 Labs Reviewed: Hgb 10.6, Hct 30.3, Alb 3.2, BUN 5, Cre 0.6, Glu 148 Meds Noted: Lovenox, novolog Skin: No pressure injuries Additional Notes: Pulled out Dobhoff feeding tube 06/17/24. Passed swallow evaluation and cleared for diabetic consistent carb diet with regular textures. Intakes have been improving since. 100% last 2 meals. Katharine is on board for additional nutrition. Continue with current nutrition care plan. Agree with orders Monitor swallow ability, intakes, weights, labs, plan of care Follow up every 5 days
[2024-04-19 12:27] LABS: Glucose Point of Care 154 mg/dl (65-105)
[2024-04-19 14:00] VITALS: BP 122/70; PULSE 61; RESP 18; TEMP 36.5; O2SAT 93
[2024-04-19 16:54] LABS: Glucose Point of Care 138 mg/dl (65-105)
[2024-04-19] MEDS: ATORVASTATIN 40 MG TABLET 80 MG PO (17:18)
[2024-04-19 19:49] LABS: Glucose Point of Care 255 mg/dl (65-105)
[2024-04-19 20:05] VITALS: BP 123/72; PULSE 92; RESP 20; TEMP 36.8; O2SAT 100
[2024-04-19] MEDS: DONEPEZIL HCL 10 MG TABLET BY MOUTH (20:10)
[2024-04-19] MEDS: QUEtiapine FUMARATE 25 MG TABLET PO (21:28)
[2024-04-20] MEDS: MEROPENEM 1 GM/NS 100 ML 1 GM/100 ML BAG IVPB ×3 (05:31→20:44)
[2024-04-20 05:58] VITALS: BP 126/85; PULSE 81; RESP 20; TEMP 36.2; O2SAT 99
[2024-04-20 08:35] LABS: Glucose Point of Care 140 mg/dl (65-105)
--- NOTE | 2024-04-20 09:22 | P.PNIM_ITS ---
Progress Note: A&P Assessment and Plan (1) AMS (altered mental status): Qualifiers: Altered mental status type: disorientation Qualified Code(s): R41.0 - Disorientation, unspecified Code(s): R41.82 - Altered mental status, unspecified Status: Acute Assessment and Plan: Spoke with patients RN Kimberli who states that prior to recent hospitalization to [facility] she was ambulatory and very combative (hitting/kicking/biting patients and staff) at the facility. She was placed on the behavioral side of [place] and started on a new psych medication. On Risperidone which was filled on 04/08 per chart review and a large dose of seroquel 25 mg TID. Will discontinue the risperidone as per uptodate this has increased mortality risks in elderly patients with severe dementia and will decrease the frequency of the seroquel to HS. - Likely delirium secondary to acute infection complicated by dementia vs polypharmacy - Patient is on a fairly large dose of Seroquel 25 mg TID, decreased to HS. Started on Risperidone this month, discontinued at this time. - Head CT: No acute intracranial findings - MRI brain ordered given that patient has AMS (baseline AO 0-1) however she remains somnolent and is not moving extremities. Unable to perform compete neuro assessment given her inability to follow commands. - UA: Cloudy appearance with 2+ protein, 1+ glucose, trace ketones, non hemolyzed blood, positive nitrates, 2+ leukocytes, > 100 WBC, 4+ bacteria - UC obtained on 04/12: Ecoli ESBL on meropenem 04/14 - ABG 04/15: normal pH and pCO2 - Ammonia level < 9 - Patient has been 4 days without food, we will go ahead and place a small bore feeding tube for nutritional purposes, hydration, medication administration. Tube placement: Successful fluoroscopy-guided Dobbhoff feeding tube placement with distal tip in the fourth portion of the duodenum. Property Loss Insurance Claim Adjuster consulted, remains on Jevity 1.5 at 40 ml and tolerating it well - Neuro consulted EEG ordered 04/17- no NG/Dobhoff access -will do swallow bedside and if needed modified barium - if able to swallow- ok to resume po intake and PO meds - continue to monitor for aspiration -hob 30 degrees or more when eating- ideally up to the chair - sitter at bedside if needed - if continue to pull on lines- will consider mittens 04/18- passed swallow eval- was cleared to eat neurology notes reviewed: She is on Aricept 10 mg a day and memantine 5 mg twice a day the dose of the later can be increased to 10 mg twice a day. Patient is also on Lexapro 10 mg a day. She may require psychotropic medications if behavior becomes a problem but for now she seems to be more sedated. She is already in institution for patients with memory loss. - will increase memantine to 10 mg bid per neurology recommendations. 04/19- alert but disoriented. still restless 04/20- seroquel 25 mg dose at hs was restarted last night- uneventful night. Will monitor to see if pt is more relaxed but not too drowsy and that would be regimen we discharge her on. (2) Acute UTI: Code(s): N39.0 - Urinary tract infection, site not specified Status: Acute Assessment and Plan: - UA: Cloudy appearance with 2+ protein, 1+ glucose, trace ketones, non hemolyzed blood, positive nitrates, 2+ leukocytes, > 100 WBC, 4+ bacteria - UC obtained on 04/12: Ecoli ESBL - previous micro reviewed 03/05/24: klebsiella pneumoniae pansensitive - started on Cipro on 04/13 (Rocephin not started given patients anaphylactic allergy to penicillins), transitioned to meropenem on 04/14 Spoke with pharmacy Keely prior to starting meropenem and she states there is low cross reactivity with penicillin allergies including those of anaphylaxis. Informed patients RN that the antibiotic had been changed and to closely monitor her for the first 24 hours since receiving the medication. - on meropenem- end date 04/21 (3) Dementia: Code(s): F03.90 - Unspecified dementia, unspecified severity, without behavioral disturbance, psychotic disturbance, mood disturbance, and anxiety Status: Acute Assessment and Plan: Continue home medications. - Aricept 10 mg daily, Lexapro 10 mg daily, Namenda 5 mg daily (increased to BID) - Seroquel 25 mg TID, decreased to HS as possible cause of somnolence - Risperdal discontinued - Neurology consulted, she is on Aricept 10 mg a day and memantine 5 mg twice a day the dose of the later can be increased to 10 mg twice a day. - Monitor 04/18- - will increase memantine to 10 mg bid per neurology recommendations seroquel 25 mg hs was added 04/19- did ok overnight. more relaxed but not too drowsy (4) HTN (hypertension), benign: Code(s): I10 - Essential (primary) hypertension Status: Acute Assessment and Plan: Chronic, well controlled on home medications - Amlodipine 5 mg daily - Lisinopril 40 mg daily - Monitor (5) Diabetes mellitus: Code(s): E11.9 - Type 2 diabetes mellitus without complications Status: Acute Assessment and Plan: - hypoglycemia protocol - POC blood glucose ACHS - home medication - metformin 1000 mg daily - correct regimen ordered - low dose TIDWM - A1C 7.3 (6) Hypokalemia: Code(s): E87.6 - Hypokalemia Status: Acute Assessment and Plan: -will order IV K, and order daily replacement- monitor closely - repeat was 4.3 last night, 3.9 this am- will continue with oral replacement Time Spent With Patient Time with patient: Greater than 35 minutes Subjective Date/time seen: 04/20/24 09:22 Interval history: 68 year old female with past medical history dementia, hypertension, and diabetes presents to the hospital from long-term with altered mental status. Per [place] TADEO Ag, prior to patients recent hospitalization to [facility] she was ambulatory and very combative (hitting/kicking/biting patients and staff) at [facility]. She was placed on the behavioral side of [place] and started on a new psych medication. THis medication appears to be Risperidone which was filled on 04/08 per chart review and a large dose of seroquel 25 mg TID. Will discontinue the risperidone as per uptodate this has increased mortality risks in elderly patients with severe dementia and will decrease the frequency of the seroquel to HS. Patient is pleasant lying in bed with sitter at bedside. She is alert, making eye contact, moving all extremities and talking. Patient had dobhof placed yesterday and remains on Jevity 1.5 at 40 ml, tolerating it well. Call made at 1500 to patients , Jef and voicemail left with call back number. 04/17- was reported that pt pulled dobhoff off overnight. will try to call again today to discuss plan of care - [phone]. Called and discussed plan of care- Jef is oppose to comfort/hospice care. Will be coming over in 30-60 min- will discuss in more details. Pt's and sister wants to do full treatment- whatever it takes. Bedside swallow eval first and if failed-will decide if peg tube appropriate. 04/18- pt is seen and examined. She passed her swallow eval and was cleared to eat- would help feeding pt if needed. Pt is frigidly but re directable. 04/19- pt is seen and examined. K was replaced yesterday- repeat was 4.3 and 3.9 this am- will continue with PO replacement 04/20 one more day on IV antibiotics- anticipate discharge back tomorrow, 04/21 after antibiotics are completed. Review of Systems Review of Systems: ROS unobtainable: Yes unobtainable due to mental status Exam Narrative: General: resting with eyes closed this am, calm, in no acute respiratory distress who is chronically ill appearing, lying in bed with sitter at bedside HEENT: Normocephalic. Atraumatic. Sclera clear and anicteric. No facial asymmetry. Dophoff in place. Chest: Lungs are clear to auscultation bilaterally. No wheezes or crackles. CV: Heart was regular rate and rhythm. S1-S2. No murmurs, gallops, or rubs. Abd: Abdomen was soft. Nontender. Nondistended. Positive bowel sounds. No organomegaly or masses. Ext: No clubbing, cyanosis, or edema. 2+ DP pulses bilaterally. Neuro: able to move all extremities, follows commands inconsistently- but her baseline. Const: General: comfortable, no acute distress, well developed, ill appearing acutely, lethargic, patient obtunded and average body habitus Nutritional Appearance: average body habitus HENMT: Head: normal to inspection, normocephalic and atraumatic Ears: hearing grossly normal bilaterally Face/Nose/Sinus: normal facial exam Face and sinus: normal facial exam Eyes: General: appearance normal, both eyes and all related structures Pupils: Equal, round and reactive pupils present EOM: EOMs intact bilaterally Neck: Neck: full ROM, no lymphadenopathy and no JVD Thyroid: thyroid normal Resp: Effort & Inspection: normal respiratory effort Auscultation: clear to auscultation bilaterally Cardio: Jugular venous distension: no JVD Rate: regular rate Rhythm: regular rhythm Heart sounds: S1 normal heart sound present and S2 normal heart sound present : General: Yes deferred Skin: Rashes: no rashes Wounds: no wounds Neuro: General: moves all extremities and no focal motor deficits Cranial nerves: Yes CN's II-XII intact bilaterally and Yes Equal, round and reactive pupils present Cognition (Neuro): abnormal cognition (lethargy/obtundation) Speech: normal speech Gait exam (Neuro): Unable to assess gait Motor exam (neuro): 5/5 motor strength present throughout Extrem: General: normal to inspection, full ROM, no joint enlargement and no pedal edema Objective Data Vital Signs Vital Signs: Vital Signs - 24 hr 04/19/24 14:00 04/19/24 20:05 04/19/24 20:08 Temperature 97.7 F 98.3 F Pulse Rate 61 92 Respiratory Rate 18 20 Blood Pressure 122/70 123/72 Pulse Oximetry 93 100 Oxygen Delivery Room Air 04/20/24 05:58 Temperature 97.2 F L Pulse Rate 81 Respiratory Rate 20 Blood Pressure 126/85 Pulse Oximetry 99 Oxygen Delivery Intake/Output Intake/Output: Intake & Output 04/17/24 04/18/24 04/19/24 04/20/24 23:59 23:59 23:59 23:59 Intake Total 1485 2726.5 1956 100 Output Total 400 Balance 1085 2726.5 1956 100 Meds/Results Medications: Active Medications Generic Name Dose Route Start Last Admin Trade Name Freq PRN Reason Stop Dose Admin Amlodipine Besylate 5 mg 04/19/24 09:00 04/19/24 09:09 Amlodipine Besylate 5 Mg Tablet BY MOUTH 5 mg DAILY JOAN Administration Aspirin 81 mg 04/19/24 09:00 04/19/24 09:08 Aspirin 81 Mg Chewable Tablet BY MOUTH 81 mg DAILY JOAN Administration Atorvastatin Calcium 80 mg 04/13/24 18:00 04/19/24 17:18 Atorvastatin 40 Mg Tablet PO 80 mg QPM JOAN Administration Buspirone HCl 5 mg 04/18/24 17:00 04/19/24 17:19 Buspirone Hcl 5 Mg Tablet BY MOUTH 5 mg BID JOAN Administration Dextrose 12.5 gm 04/13/24 08:33 Dextrose 50% 25 Gm/50 Ml Syringe IV PUSH PRN PRN Hypoglycemia Protocol Dextrose 12.5 gm 04/18/24 19:37 Dextrose 50% 25 Gm/50 Ml Syringe IV PUSH PRN PRN Hypoglycemia Protocol Donepezil HCl 10 mg 04/18/24 21:00 04/19/24 20:10 Donepezil Hcl 10 Mg Tablet BY MOUTH 10 mg HS JOAN Administration Enoxaparin Sodium 40 mg 04/13/24 09:00 04/19/24 09:10 Enoxaparin 40 Mg/0.4 Ml Syringe SUB-Q 40 mg DAILY JOAN Administration Escitalopram Oxalate 10 mg 04/19/24 09:00 04/19/24 09:10 Escitalopram Oxalate 10 Mg Tablet BY MOUTH 10 mg DAILY JOAN Administration Glucagon 1 mg 04/13/24 08:33 Glucagon For Inj 1 Mg Vial IM PRN PRN Hypoglycemia Protocol Glucagon 1 mg 04/18/24 19:37 Glucagon For Inj 1 Mg Vial IM PRN PRN Hypoglycemia Protocol Glucose 15 gm 04/13/24 08:33 Glucose Oral Gel 15 Gm Of Glucse In 37.5 Gm Tube PO PRN PRN Hypoglycemia Protocol Glucose 15 gm 04/18/24 19:37 Glucose Oral Gel 15 Gm Of Glucse In 37.5 Gm Tube PO PRN PRN Hypoglycemia Protocol Hydralazine HCl 10 mg 04/15/24 14:11 04/18/24 21:46 Hydralazine Hcl 20 Mg/Ml Vial IV PUSH 10 mg Q8H PRN Administration Blood Pressure - High Dextrose 1,000 mls @ 100 mls/hr 04/13/24 08:33 Dextrose 5% 1,000 Ml IVPB PRN PRN Hypoglycemia Protocol Meropenem 1 gm in 100 mls @ 200 mls/hr 04/14/24 14:00 04/20/24 06:01 IVPB 04/21/24 06:29 Infused Q8H JOAN Infusion Dextrose 1,000 mls @ 100 mls/hr 04/18/24 19:37 Dextrose 5% 1,000 Ml IVPB PRN PRN Hypoglycemia Protocol Insulin Aspart 2 - 5 units 04/19/24 08:00 04/19/24 17:00 Insulin Aspart (*Bkc) 100 Units/Ml SUB-Q Not Given TIDWM JOAN Protocol Lisinopril 40 mg 04/19/24 09:00 04/19/24 09:09 Lisinopril 20 Mg Tablet BY MOUTH 40 mg DAILY JOAN Administration Memantine 10 mg 04/18/24 21:00 04/19/24 20:10 Memantine 10 Mg Tablet BY MOUTH 10 mg Q12HR JOAN Administration Potassium Chloride 40 meq 04/18/24 09:00 04/19/24 09:11 Potassium Chloride 20 Meq Packet (For Liquid) PO 40 meq DAILY JOAN Administration Quetiapine Fumarate 25 mg 04/13/24 21:00 04/19/24 21:28 Quetiapine Fumarate 25 Mg Tablet PO 25 mg HS JOAN Administration Trazodone HCl 50 mg 04/13/24 06:24 Trazodone Hcl 50 Mg Tablet PO HS PRN Sleep Radiology Results: ITS Impressions Head CT 04/12/24 20:14 IMPRESSION: No acute intracranial findings. Brain MRI 04/13/24 14:07 IMPRESSION: 1. No evidence of acute infarct or hemorrhage is seen. 2. Brain atrophy with deep white matter ischemic changes. Abdomen X-Ray 04/16/24 18:57 IMPRESSION: Feeding tube projecting over the left upper quadrant for which further ruth racterization of its location is limited without contrast injection. Labs Labs: Laboratory Results - last 24 hr 04/19/24 04/19/24 04/19/24 12:16 16:45 19:45 POC Capillary Glucose 154 H 138 H 255 H 04/20/24 08:30 POC Capillary Glucose 140 H Quality VTE Prophylaxis VTE prophylaxis: pharmacologic ordered
[2024-04-20 09:37] VITALS: BP 140/92; PULSE 88; RESP 16; O2SAT 97
[2024-04-20] MEDS: ASPIRIN 81 MG CHEWABLE TABLET BY MOUTH (09:39)
[2024-04-20] MEDS: busPIRone HCL 5 MG TABLET BY MOUTH ×2 (09:39→18:43)
[2024-04-20] MEDS: ESCITALOPRAM OXALATE 10 MG TABLET BY MOUTH (09:39)
[2024-04-20] MEDS: lisinopriL 20 MG TABLET 40 MG BY MOUTH (09:39)
[2024-04-20] MEDS: MEMANTINE 10 MG TABLET BY MOUTH ×2 (09:39→20:44)
[2024-04-20] MEDS: ENOXAPARIN 40 MG/0.4 ML SYRINGE SUB-Q (09:39)
[2024-04-20] MEDS: amLODIPine BESYLATE 5 MG TABLET BY MOUTH (09:39)
[2024-04-20] MEDS: POTASSIUM CHLORIDE 20 MEQ PACKET (FOR LIQUID) 40 MEQ PO (09:39)
[2024-04-20 12:21] LABS: Glucose Point of Care 131 mg/dl (65-105)
[2024-04-20 15:06] LABS: Hematocrit 30.3 % (37.0-47.0); Hemoglobin 10.8 g/dL (12.0-15.0); Mean Corpuscular HGB Conc 35.6 g/dl (32-36); Mean Corpuscular Volume 87.1 fl (80-100); Mean Platelet Volume 9.9 fl (7.4-10.4); Platelet Count Result 334 k/mm3 (150-375); Red Blood Count 3.48 M/mm3 (4.2-5.4); Red Cell Distribution Width 12.7 % (11.5-14.5); White Blood Count 17.3 K/mm3 (4.5-10.0)
[2024-04-20 15:23] LABS: Anion Gap 5 mmol/L (4-12); Blood Urea Nitrogen 9 mg/dL (7-17); Calcium 8.8 mg/dL (8.4-10.2); Carbon Dioxide 30 mmol/L (22-30); Chloride 100 mmol/L (98-107); Estimated CRCL calculation 60 ml/min; Estimated Glomerular Filt Rate > 60; Glucose 118 mg/dL (65-110); Sodium 135 mmol/L (137-145)
[2024-04-20 15:42] VITALS: BP 154/67; PULSE 79; RESP 18; TEMP 36.7; O2SAT 98
[2024-04-20 17:09] LABS: Glucose Point of Care 123 mg/dl (65-105)
[2024-04-20] MEDS: ATORVASTATIN 40 MG TABLET 80 MG PO (18:43)
[2024-04-20 20:00] VITALS: BP 188/70; PULSE 80; RESP 18; TEMP 36.2; O2SAT 99
[2024-04-20] MEDS: DONEPEZIL HCL 10 MG TABLET BY MOUTH (20:44)
[2024-04-20] MEDS: QUEtiapine FUMARATE 25 MG TABLET PO (20:44)
[2024-04-20 20:51] LABS: Glucose Point of Care 126 mg/dl (65-105)
[2024-04-21 04:17] VITALS: BP 181/69; PULSE 80; RESP 18; TEMP 36.6; O2SAT 98
[2024-04-21] MEDS: MEROPENEM 1 GM/NS 100 ML 1 GM/100 ML BAG IVPB (05:21)
--- NOTE | 2024-04-21 08:13 | PM.DS ---
DS: Admitting Diagnosis Discharge Date 04/21 Admitting Diagnosis ams DS: Discharge Diagnosis Discharge Diagnosis (1) AMS (altered mental status): Qualifiers: Altered mental status type: disorientation Qualified Code(s): R41.0 - Disorientation, unspecified Code(s): R41.82 - Altered mental status, unspecified Status: Acute (2) Acute UTI: Code(s): N39.0 - Urinary tract infection, site not specified Status: Acute (3) Dementia: Code(s): F03.90 - Unspecified dementia, unspecified severity, without behavioral disturbance, psychotic disturbance, mood disturbance, and anxiety Status: Acute (4) HTN (hypertension), benign: Code(s): I10 - Essential (primary) hypertension Status: Acute (5) Diabetes mellitus: Code(s): E11.9 - Type 2 diabetes mellitus without complications Status: Acute (6) Hypokalemia: Code(s): E87.6 - Hypokalemia Status: Acute DS: Summary Hospital Course Hospital Course: 68 year old female with past medical history dementia, hypertension, and diabetes presents to the hospital from snf with altered mental status. Per [place] TADEO Ag, prior to patients recent hospitalization to [place] she was ambulatory and very combative (hitting/kicking/biting patients and staff) at [facility]. She was placed on the behavioral side of [place] and started on a new psych medication. THis medication appears to be Risperidone which was filled on 04/08 per chart review and a large dose of seroquel 25 mg TID. Will discontinue the risperidone as per up-to-date this has increased mortality risks in elderly patients with severe dementia and will decrease the frequency of the seroquel to HS. Several issues were addressed while pt was hospitalized: # AMS (likely due to UTI) - Likely delirium secondary to acute infection complicated by dementia vs polypharmacy - Patient was on a fairly large dose of Seroquel 25 mg TID and slowly uptitrated to 25 mg BID to ensure pt is calm but not too drowsy. We discontinued Risperidon on admission and did not restart that. - Head CT: No acute intracranial findings - MRI brain ordered given that patient has AMS (baseline AO 0-1) however she remains somnolent and is not moving extremities. - UC obtained on 04/12: Ecoli ESBL on meropenem 04/14- end date 04/21- COMPLETED IV MEROPENEM TREATMENT. She was without food for 4 day- Dobbhoff was inserted- x 1 day- pt pulled it out on 04/17 - we asked to do swallow eval with speech therapy- pt passed it and was started on diabetic diet- so she had been eating and drinking ok since then. No coughing or choking were observed or reported. 04/19, 04/20 WBC bumped up- rechecked on 04/21 trending down- 17.1-> 17.3->12.8(on 04/21)- pt has no fever, no cough, VS stable- and still on appropriate antibiotics. * to PCP- please recheck WBC with few days of discharge to ensure WBC continues to trend down. Neurology was consulted, recommendations reviewed and this is her regimen now: - Aricept 10 mg a day and memantine 10 mg twice a day, Lexapro 10 mg a day. Seroquel 25 mg BID (Seroquel could be administered as 50 mg at bedtime instead of 25 mg bid to ensure pt is more relaxed at night). Risperidone was not given and not restarted on discharge # HTN BP was elevated - so her amlodipine was increased from 5 mg to 10 daily on 04/21. Status at Discharge Functional status at discharge: uses cane/walker Overall status at discharge: patient is progressing back to baseline (pt is confused at baseline, hard to assess overall status due to dementia)) Time Spent with Patient Time attestation: Total time spent providing and/or coordinating discharge services: Time spent: Greater than 30 minutes Exam Narrative: General: calm, in no acute respiratory distress who is chronically ill appearing HEENT: Normocephalic. Atraumatic. Sclera clear and anicteric. No facial asymmetry. Dophoff in place. Chest: Lungs are clear to auscultation bilaterally. No wheezes or crackles. CV: Heart was regular rate and rhythm. S1-S2. No murmurs, gallops, or rubs. Abd: Abdomen was soft. Nontender. Nondistended. Positive bowel sounds. No organomegaly or masses. Ext: No clubbing, cyanosis, or edema. 2+ DP pulses bilaterally. Neuro: able to move all extremities, follows commands inconsistently- but her baseline. Const: General: comfortable, no acute distress, well developed, ill appearing acutely, lethargic, patient obtunded and average body habitus Nutritional Appearance: average body habitus Orientation/consciousness: patient obtunded and lethargic HENMT: Head: normal to inspection, normocephalic and atraumatic Ears: hearing grossly normal bilaterally Face/Nose/Sinus: normal facial exam Face and sinus: normal facial exam Eyes: General: appearance normal, both eyes and all related structures Pupils: Equal, round and reactive pupils present EOM: EOMs intact bilaterally Neck: Neck: full ROM, no lymphadenopathy and no JVD Thyroid: thyroid normal Lymphatic: no lymphadenopathy noted Resp: Effort & Inspection: normal respiratory effort and able to speak in complete sentences Auscultation: clear to auscultation bilaterally Cardio: Jugular venous distension: no JVD Rate: regular rate Rhythm: regular rhythm Heart sounds: S1 normal heart sound present and S2 normal heart sound present : General: Yes deferred Skin: Rashes: no rashes Wounds: no wounds Neuro: General: moves all extremities, no focal motor deficits, patient obtunded and Unable to assess gait Cranial nerves: Yes CN's II-XII intact bilaterally and Yes Equal, round and reactive pupils present Cognition (Neuro): abnormal cognition (lethargy/obtundation) Speech: normal speech Gait exam (Neuro): Unable to assess gait Motor exam (neuro): 5/5 motor strength present throughout Extrem: General: normal to inspection, full ROM, no joint enlargement and no pedal edema DS: Data Data Completed and Pending Completed studies during hospitalization: head CT, Brain MRI Labs on day of discharge: Labs from last 24 hours 04/20/24 04/20/24 04/20/24 20:05 17:03 15:02 WBC 17.3 H RBC 3.48 L Hgb 10.8 L Hct 30.3 L MCV 87.1 MCH 31.0 MCHC 35.6 RDW 12.7 Plt Count 334 MPV 9.9 Sodium 135 L Potassium 4.0 Chloride 100 Carbon Dioxide 30 Anion Gap 5 BUN 9 Creatinine 0.60 L Estim Creat Clear Calc 60 Estimated GFR > 60 Glucose 118 H POC Capillary Glucose 126 H 123 H Calcium 8.8 04/20/24 04/20/24 12:16 08:30 WBC RBC Hgb Hct MCV MCH MCHC RDW Plt Count MPV Sodium Potassium Chloride Carbon Dioxide Anion Gap BUN Creatinine Estim Creat Clear Calc Estimated GFR Glucose POC Capillary Glucose 131 H 140 H Calcium Discharge Plan Discharge Consulting providers: Krista Mcnulty Discharging Clinician: Heather Palmer Patient Disposition: SNF Activity: may shower Diet: as tolerated and diabetic Discharge Instructions: Patient to have PT/OT/ST evaluations and treat at [facility]. Patient Instructions: Pain Management (DC) Stand Alone Forms: General Discharge Information Follow-up/Referrals: Abrahan,MD Hayden [Primary Care Provider] - 1 Week (please f/u with PCP to recheck WBC) Discharge Medications: New amlodipine 10 mg Tablet 10 mg BYMOUTH DAILY Qty: 90 0RF quetiapine [Seroquel] 25 mg Tablet 25 mg PO Q12HR Qty: 90 0RF memantine 10 mg tablet 10 mg PO BID Qty: 90 0RF Continued atorvastatin 80 mg tablet 80 mg PO QPM Rx Instructions: evening administration donepezil 10 mg tablet 10 mg PO HS aspirin 81 mg Tablet,Chewable 81 mg PO DAILY metformin 500 mg tablet extended release 24 hr 1,000 mg PO DAILY escitalopram oxalate 20 mg tablet 10 mg PO DAILY buspirone 5 mg Tablet 5 mg PO BID lisinopril 40 mg Tablet 40 mg PO DAILY Discontinued quetiapine 25 mg tablet 25 mg PO TID memantine 5 mg tablet 5 mg PO BID trazodone 50 mg tablet 50 mg PO HS PRN (Reason: Sleep) amlodipine 5 mg Tablet 5 mg PO DAILY risperidone 1 mg/mL solution 2 mg PO BID Date of admission: 04/13/24 07:50 Primary Care Provider: AbrahanHayden Admitting Provider: Carmelita Frost V. Attending physician on admission: Evelyn Paez Condition: Stable Quality VTE Prophylaxis VTE prophylaxis: pharmacologic ordered Hospitalist MIPS Heart Failure (Exclusion) Patient has history of Heart Transplant or Left Ventricular Assistive Device?: No IF YES, STOP HERE Heart Failure (Qualifier) Patient has current or prior documentation of LVEF less than or equal to 40%, or mod/servere depressed LVSF?: No IF NO, STOP HERE
[2024-04-21 08:21] LABS: Glucose Point of Care 164 mg/dl (65-105)
[2024-04-21] MEDS: MEMANTINE 10 MG TABLET BY MOUTH (08:39)
[2024-04-21] MEDS: amLODIPine BESYLATE 10 MG TABLET BY MOUTH (08:39)
[2024-04-21] MEDS: lisinopriL 20 MG TABLET 40 MG BY MOUTH (08:39)
[2024-04-21] MEDS: ASPIRIN 81 MG CHEWABLE TABLET BY MOUTH (08:39)
[2024-04-21] MEDS: POTASSIUM CHLORIDE 20 MEQ PACKET (FOR LIQUID) 40 MEQ PO (08:39)
[2024-04-21] MEDS: busPIRone HCL 5 MG TABLET BY MOUTH (08:39)
[2024-04-21] MEDS: ENOXAPARIN 40 MG/0.4 ML SYRINGE SUB-Q (08:41)
[2024-04-21] MEDS: QUEtiapine FUMARATE 25 MG TABLET PO (08:43)
[2024-04-21] MEDS: ESCITALOPRAM OXALATE 10 MG TABLET PO (09:05)
[2024-04-21 09:20] LABS: Hemoglobin 10.8 g/dL (12.0-15.0); Mean Corpuscular HGB Conc 34.8 g/dl (32-36); Mean Corpuscular Hemoglobin 30.8 pg (26-34); Mean Corpuscular Volume 88.3 fl (80-100); Platelet Count Result 314 k/mm3 (150-375); Red Blood Count 3.51 M/mm3 (4.2-5.4); White Blood Count 12.8 K/mm3 (4.5-10.0)
[2024-04-21 12:03] LABS: Glucose Point of Care 149 mg/dl (65-105)
[2024-04-21 14:10] VITALS: BP 132/63; PULSE 88; RESP 18; O2SAT 97
[2024-04-21 15:02] LABS: SARS-CoV-2 RNA PCR Negative (Negative)
--- NOTE | 2024-04-23 10:42 | WPDNEUROLOGY ---
Neurology EEG Report General Information Date of Study: 04/16/24 TEST eeg DIAGNOSIS Possible seizures CONDITION OF RECORDING awake but oriented only x1 EEG NUMBER 24 [id number] CLINICAL HISTORY possible seizures EEG DESCRIPTION whole record consist of medium voltage 5 to 7 hertz per 2nd theta activity admixed with low to medium voltage 3 to 4 hertz per 2nd delta activity with poor dulce posterior gradient. Bilateral symmetrical sleep activity noted during sleep. Hyperventilation not done. Photic stimulation not done. Non paroxysmal. Nonfocal. Non lateralizing. IMPRESSION Abnormal record due to the absence of a normal background rhythm and presence of excessive amount of theta and delta activity but without any paroxysmal discharge or any Asymmetrical delta activity. Clinical correlation recommended these abnormalities could be suggestive of organic or metabolic encephalopathy without evidence of any paroxysmal discharge.
== END 2024-04-21 15:58 | DRG 689 ==
LOC: ANHED 20:43 → ANH2MED 21:27
PROVIDERS: Nurse Practitioner Acute Care; Psychiatry & Neurology Neurology; Student in an Organized Health Care Education/Training Program; Admitting Provider Internal Medicine; Emergency Provider Emergency Medicine; PCP Internal Medicine; Visit Provider Nurse Practitioner
DX: N39.0 Urinary tract infection, site not specified (principal); G93.41 Metabolic encephalopathy; F05 Delirium due to known physiological condition; Z16.12 Extended spectrum beta lactamase (ESBL) resistance; F02.818 Dementia in other diseases classified elsewhere, unspecified severity, with other behavioral disturbance; G30.9 Alzheimer's disease, unspecified; B96.20 Unspecified Escherichia coli [E. coli] as the cause of diseases classified elsewhere; T50.995A Adverse effect of other drugs, medicaments and biological substances, initial encounter; E87.6 Hypokalemia; I10 Essential (primary) hypertension; E11.9 Type 2 diabetes mellitus without complications; Z11.52 Encounter for screening for COVID-19; Z79.82 Long term (current) use of aspirin
CPT/HCPCS: 36415; 36600; 43752; 70450; 70551; 80048; 80053; 81001; 82140; 82306; 82607; 82746; 82805; 82948; 83036; 83605; 84132; 85018; 85025; 85027; 85610; 85730; 87086; 87186; 87635; 92610; 93005; 95816; 96365; 97110; 97161; 97166; 99285; A9270; G0378; J0360; J0744; J1650; J1815; J2185; J3480; J7030; J7040

== ENCOUNTER 2024-05-13 17:19 | Emergency (ER) | payer MEDICARE, SELFPAY ==
--- NOTE | ~2024-05-13 | CT_ITS ---
History: Fall PROCEDURE: CT cervical spine without intravenous contrast. COMPARISON: None TECHNIQUE: Multiple contiguous axial images of the cervical spine were performed without the administration of i ntravenous contrast. DLP: 83 mGy-cm FINDINGS: Straightening and reversal of the normal curvature of the cervical spine is identified, possibly musc ular in origin. No acute fractures are present. Significant degenerative disease is identified with osteophyte formation, disc space narrowing, endpl ate changes and facet arthropathy. The bilateral lung apices are unremarkable. No soft tissue abnormality is present. The airway is patent. Impression: Significant degenerative disease within the cervical spine, without acute fracture. Reviewed, dictated and finalized at location A. RT CAR DRIVER Impression: Significant degenerative disease within the cervical spine, without acute fract ure.
--- NOTE | ~2024-05-13 | CT_ITS ---
History: Fall PROCEDURE: CT head without contrast. COMPARISON: 04/12/2024 and 03/05/2024 TECHNIQUE: Axial imaging of the head performed from the skull base to the vertex without IV contrast. Sagittal a nd coronal reformations obtained. DLP: 605 mGy-cm FINDINGS: The ventricles are enlarged, unchanged. The dilatation of the ventricles is proportional to the degree of sulcal prominence, not uncommon in the senescent brain. Decreased attenuation is identified within the periventricular white matter, likely secondary to micr ovascular ischemic disease, in a patient of this age. There is no mass, mass effect or midline shift. There is no abnormal extra-axial fluid collection or intracranial hemorrhage. Visualized paranasal sinuses are clear. The mastoid air cells are well aerated. No acute displaced fractures within the overlying cranium. Impression: No acute intracranial hemorrhage or suspicious mass effect. Reviewed, dictated and finalized at location A. N REPAIRER Impression: No acute intracranial hemorrhage or suspicious mass effect.
[2024-05-13 17:20] VITALS: BP 121/71; PULSE 88; RESP 16; TEMP 36.2; O2SAT 100
--- NOTE | 2024-05-13 17:45 | PC.NURSE ---
Call to [facility] at [facility] to speak with patients nurse at request of EDP. Spoke with James. Joshua Ramirez patient was in the dinning room in her W/C and fell forward out of W/C face first. James denies LOC. Per James patient was at her baseline after falling but had already called EMS for transport. Per James patient normally able to state her name but birthday comes and goes. James states patient became very sleepy after he had called EMS. James states patient has not had any doses of her Risperidol today. EDP aware.
--- NOTE | 2024-05-13 17:45 | ED_ITS ---
HPI - Fall General Chief Complaint: Fall Stated Complaint: fall History of Present Illness HPI Narrative: 68-year-old female with history of dementia, DM, hypertension presents to the ED via EMS from [facility] with complaints of falling and hitting her head. skilled nursing was contacted by nursing staff and states the patient was sitting in her wheelchair in the dining room and fell out of the wheelchair. She hit her head but did not lose consciousness. The patient is normally A&O times 1-0. patient is A&Ox0-1 upon my evaluation and is only mumbling. Unable to provide any significant history. C-collar in place. She is not anticoagulated. Related Data Home Medications Medication Instructions Recorded Confirmed aspirin 81 mg chewable tablet 81 mg PO DAILY 03/05/24 04/12/24 atorvastatin 80 mg tablet 80 mg PO QPM 03/05/24 04/12/24 donepezil 10 mg tablet 10 mg PO HS 03/05/24 04/12/24 escitalopram oxalate 20 mg tablet 10 mg PO DAILY 03/05/24 04/12/24 metformin 500 mg tablet,extended 1,000 mg PO DAILY 03/05/24 04/12/24 release 24 hr buspirone 5 mg tablet 5 mg PO BID 04/12/24 04/12/24 lisinopril 40 mg tablet 40 mg PO DAILY 04/12/24 04/12/24 Allergies Allergy/AdvReac Type Severity Reaction Status Date / Time Penicillins Allergy Unknown Anaphylaxis Verified 05/13/24 17:26 Review of Systems Review of Systems: All systems reviewed & are unremarkable except as noted in HPI and below PMFSH Past Medical History Medical History Acute metabolic encephalopathy Dementia Dementia of Alzheimer's type with behavioral disturbance Diabetes mellitus HTN (hypertension), benign Social History Social History Smoking status: Unknown if ever smoked Alcohol intake: never Substance use: never Substance use type: does not use Spiritual care concerns: No Exam Narrative: GENERAL: well-nourished, and in no acute distress. HEAD: Normocephalic, atraumatic. EYES: PERRLA and EOMI. ENT: Nares clear, no rhinorrhea or epistaxis. Mucous membranes moist. NECK: C-collar in place BACK: No thoracolumbar spinous tenderness, step-offs or deformities CHEST: Clear to auscultation. No respiratory distress. No tenderness to chest wall, no overlying skin changes HEART: Regular rate and rhythm. No murmur heard. Normal peripheral pulses. ABDOMEN: Soft, nontender, nondistended, normal active bowel sounds. No overlying skin changes EXTREMITIES: Normal range of motion. No edema. No tenderness to BUE and BLE SKIN: Warm, dry, no rash. NEURO: Alert and oriented x1. Moving all extremities spontaneously. Attempting to communicate but only mumbles Course Vital Signs Vital signs: Vital Signs Temperature 97.2 F L 05/13/24 17:20 Pulse Rate 88 05/13/24 17:20 Respiratory Rate 16 05/13/24 17:20 Blood Pressure 121/71 05/13/24 17:20 Pulse Oximetry 100 05/13/24 17:20 Oxygen Delivery Room Air 05/13/24 17:20 Temperature 97.2 F L 05/13/24 17:20 Pulse Rate 88 05/13/24 17:20 Respiratory Rate 16 05/13/24 17:20 Blood Pressure 121/71 05/13/24 17:20 Pulse Oximetry 100 05/13/24 17:20 Oxygen Delivery Room Air 05/13/24 17:20 MDM - Fall MDM Narrative Medical decision making narrative: 60-year-old female with history of dementia presents to the ED via EMS from local longterm for a witnessed fall. She did hit her head but no LOC. She is not anticoagulated. Vitals are stable. skilled nursing contacted to provide story. Patient is at her baseline mental status. CT brain and cervical spine show no acute findings. Patient to be discharged home back to longterm facility. Discharge Plan Discharge Clinical Impression: Fall, Head injury Patient Disposition: Home, Self-Care Condition: Stable Instructions: Antibiotic Form, Head Injury (ED) Additional Instructions: Patient evaluated in the emergency department after a fall. CT head and neck were unremarkable. She does not appear to be in pain and has no tenderness to palpation throughout exam. Return to the emergency department if she develops a fever, abnormal behavior, or other concerning symptoms. Prescriptions: No Action atorvastatin 80 mg tablet 80 mg PO QPM Rx Instructions: evening administration donepezil 10 mg tablet 10 mg PO HS aspirin 81 mg Tablet,Chewable 81 mg PO DAILY metformin 500 mg tablet extended release 24 hr 1,000 mg PO DAILY escitalopram oxalate 20 mg tablet 10 mg PO DAILY buspirone 5 mg Tablet 5 mg PO BID lisinopril 40 mg Tablet 40 mg PO DAILY amlodipine 10 mg Tablet 10 mg BYMOUTH DAILY Qty: 90 0RF memantine 10 mg tablet 10 mg PO BID Qty: 90 0RF quetiapine [Seroquel] 25 mg Tablet 25 mg PO Q12HR Qty: 90 0RF Follow-up/Referrals: Rosalio,MD Hayden [Primary Care Provider] - Gil Baxter MD [Physician] - 1 Day Tanmay Escamilla MD [Physician] - 1 Day
--- NOTE | 2024-05-13 18:00 | PC.NURSE ---
Mouth care done for patient
--- NOTE | 2024-05-13 18:40 | PC.NURSE ---
Call made to [facility] at [facility] to make them aware of patient returning to them. Per Staff at [facility] nurse is currently doing medication pass and will call back shortly.
--- NOTE | 2024-05-13 19:08 | PC.NURSE ---
Report given to TADEO Feldman
[2024-05-13 19:10] VITALS: BP 127/73; PULSE 89; RESP 16; TEMP 36.7; O2SAT 100
== END 2024-05-13 20:31 ==
PROVIDERS: Emergency Provider Physician Assistant; PCP Internal Medicine
DX: S09.90XA Unspecified injury of head, initial encounter (principal); G30.9 Alzheimer's disease, unspecified; F02.818 Dementia in other diseases classified elsewhere, unspecified severity, with other behavioral disturbance; I10 Essential (primary) hypertension; E11.9 Type 2 diabetes mellitus without complications; W05.0XXA Fall from non-moving wheelchair, initial encounter; Z79.899 Other long term (current) drug therapy; Z79.02 Long term (current) use of antithrombotics/antiplatelets; Z79.84 Long term (current) use of oral hypoglycemic drugs
CPT/HCPCS: 70450; 72125; 99284